=== PATIENT | male | born 1945 | race Caucasian/White ===

== ENCOUNTER → 2017-02-19 | Outpatient (CLI) | payer OTHER ==
[2014-06-10 09:27] VITALS: BP 156/84
[~2017-02-19] MED LIST: BISO1TAB4 PO; LOSA25TA4 PO; METF500T4 PO; SERT50TA PO; SIMV20TA3 PO
[2017-02-19 11:22] LABS: CALCIUM 9.1 mg/dL (8.5-10.1); GFR 74.1; POTASSIUM 3.9 mmol/L (3.5-5.1)
[2017-02-19 11:23] LABS: CHOLESTEROL/HDL RATIO 4.8
== END | disposition home or self-care (01) ==
LOC: LAB 10:49
PROVIDERS: ATTEND Family Medicine
DX: E11.69 Type 2 diabetes mellitus with other specified complication (principal); B19.20 Unspecified viral hepatitis C without hepatic coma
CPT/HCPCS: 36415; 80048; 80061; 86803

== ENCOUNTER → 2018-02-26 | Outpatient (CLI) | payer OTHER ==
[2018-02-26 12:49] LABS: PROSTATE SPECIFIC ANTIGEN 2.73 ng/mL (0.00-4.00)
== END | disposition home or self-care (01) ==
LOC: LAB 11:04
DX: Z12.5 Encounter for screening for malignant neoplasm of prostate (principal); Z80.42 Family history of malignant neoplasm of prostate
CPT/HCPCS: 36415; G0103

== ENCOUNTER 2018-08-05 16:56 | Inpatient (IN) | payer OTHER, MEDICARE ==
[~2018-08-05] VITALS: Ht 179.1 cm; Wt 116.6 kg
[~2018-08-05 16:56] MED LIST changes: -LOSA25TA4 PO; +LOSA25TA54 PO; +METF500T16 PO; -METF500T4 PO
--- NOTE | 2018-08-05 17:23 | PHYS DOC ---
Adult General Chief Complaint Chief Complaint: CHEST PAIN HPI HPI Patient is a 72 year old male with a history of hypertension, chronic seasonal allergies, who presents today complaining of 8 out of 10 right sided chest pain radiating to the right upper extremity that has been going on since yesterday intermittently. Patient describes the pain as stabbing. Patient states certain foods make the pain worse, he states he had Zee's yesterday and that is when the pain began. Patient states he has taken aspirin 3 tablets(81mg) today with no relief. He states the pain seems worse today than yesterday. Patient states he has history of chronic nasal congestion from seasonal allergies. PCP Dr. Umana Review of Systems Review of Systems Constitutional: Denies fever or chills [] Eyes: Denies change in visual acuity, redness, or eye pain [] HENT: Reports chronic nasal congestion, denies sore throat [] Respiratory: Denies cough or shortness of breath [] Cardiovascular: Reporting chest pain GI: Denies abdominal pain, nausea, vomiting, bloody stools or diarrhea [] : Denies dysuria or hematuria [] Musculoskeletal: Denies back pain or joint pain [] Integument: Denies rash or skin lesions [] Neurologic: Denies headache, focal weakness or sensory changes [] All other systems were reviewed and found to be within normal limits, except as documented in this note. Current Medications Current Medications Current Medications Medications (Trade) Dose Ordered Sig/[facility] Start Time Stop Time Status Last Admin Dose Admin Acetaminophen (Tylenol) 1,000 mg 1X ONCE 08/05/18 17:45 08/05/18 17:46 DC Nitroglycerin (Nitrostat) 0.4 mg PRN Q5MIN PRN 08/05/18 17:30 08/05/18 20:59 DC Allergies Allergies Allergies Coded Allergies Type Severity Reaction Last Updated Verified No Known Drug Allergies 06/10/14 No Physical Exam Physical Exam Constitutional: Well developed, well nourished, no acute distress, non-toxic appearance. [] HENT: Normocephalic, atraumatic, bilateral external ears normal, oropharynx moist, no oral exudates, nose normal. [] Eyes: PERRLA, EOMI, conjunctiva normal, no discharge. [] Neck: Normal range of motion, no tenderness, supple, no stridor. [] Cardiovascular:Heart rate regular rhythm, no murmur [] Lungs & Thorax: Bilateral breath sounds clear to auscultation [] Abdomen: Bowel sounds normal, soft, no tenderness, no masses, no pulsatile masses. [] Skin: Warm, dry, no erythema, no rash. [] Back: No tenderness, no CVA tenderness. [] Extremities: No tenderness, no cyanosis, no clubbing, ROM intact, no edema. [] Neurologic: Alert and oriented X 3, normal motor function, normal sensory function, no focal deficits noted. [] Psychologic: Affect normal, judgement normal, mood normal. [] Current Patient Data Vital Signs Vital Signs Date Time Temp Pulse Resp B/P (MAP) Pulse Ox O2 Delivery O2 Flow Rate FiO2 08/05/18 19:30 70 20 144/70 (94) 97 Room Air 08/05/18 16:58 98.4 98.4 Lab Values Laboratory Tests Test 08/05/18 17:50 White Blood Count 7.4 x10^3/uL (4.0-11.0) Red Blood Count 5.13 x10^6/uL (4.30-5.70) Hemoglobin 15.1 g/dL (13.0-17.5) Hematocrit 44.5 % (39.0-53.0) Mean Corpuscular Volume 87 fL (79-100) Mean Corpuscular Hemoglobin 30 pg (25-35) Mean Corpuscular Hemoglobin Concent 34 g/dL (31-37) Red Cell Distribution Width 13.6 % (11.5-14.5) Platelet Count 266 x10^3/uL (140-400) Neutrophils (%) (Auto) 63 % (31-73) Lymphocytes (%) (Auto) 27 % (24-48) Monocytes (%) (Auto) 7 % (0-9) Eosinophils (%) (Auto) 3 % (0-3) Basophils (%) (Auto) 1 % (0-3) Neutrophils # (Auto) 4.7 x10^3uL (1.8-7.7) Lymphocytes # (Auto) 2.0 x10^3/uL (1.0-4.8) Monocytes # (Auto) 0.5 x10^3/uL (0.0-1.1) Eosinophils # (Auto) 0.2 x10^3/uL (0.0-0.7) Basophils # (Auto) 0.0 x10^3/uL (0.0-0.2) Sodium Level 140 mmol/L (136-145) Potassium Level 4.2 mmol/L (3.5-5.1) Chloride Level 102 mmol/L (98-107) Carbon Dioxide Level 29 mmol/L (21-32) Anion Gap 9 (6-14) Blood Urea Nitrogen 12 mg/dL (8-26) Creatinine 1.2 mg/dL (0.7-1.3) Estimated GFR (Cockcroft-Gault) 59.9 BUN/Creatinine Ratio 10 (6-20) Glucose Level 177 mg/dL (70-99) H Calcium Level 9.7 mg/dL (8.5-10.1) Magnesium Level 1.7 mg/dL (1.8-2.4) L Total Bilirubin 0.3 mg/dL (0.2-1.0) Aspartate Amino Transferase (AST) 18 U/L (15-37) Alanine Aminotransferase (ALT) 24 U/L (16-63) Alkaline Phosphatase 49 U/L (46-116) Troponin I Quantitative 0.249 ng/mL (0.000-0.055) YH-Xof-M-Type Natriuretic Peptide 401 pg/mL (0-124) H Total Protein 7.0 g/dL (6.4-8.2) Albumin 3.9 g/dL (3.4-5.0) Albumin/Globulin Ratio 1.3 (1.0-1.7) Thyroid Stimulating Hormone (TSH) 2.152 uIU/mL (0.358-3.74) Influenza Type A Antigen Negative (NEGATIVE) Influenza Type B Antigen Negative (NEGATIVE) Laboratory Tests 08/05/18 17:50 Laboratory Tests 08/05/18 17:50 EKG EKG EKG interpreted by sinus rhythm heart rate 71 no STEMI[] Radiology/Procedures Radiology/Procedures []PROCEDURE: PORTABLE CHEST 1V AP chest. HISTORY: Pain right side showed chest, hypertension, diabetes AP view was taken of the chest. There is no pneumothorax or pleural effusion. Heart is normal in size. There are no acute infiltrates. IMPRESSION: 1. No acute chest disease. Electronically signed by: Colin Arredondo MD (08/05/2018 6:38 PM) [facility] DICTATED and SIGNED BY: COLIN ARREDONDO MD DATE: 08/05/18 1837 Course & Med Decision Making Course & Med Decision Making Pertinent Labs and Imaging studies reviewed. (See chart for details) This is a 72-year-old male patient presenting to the ED today with right sided chest pain intermittently since yesterday. EKG was negative for any acute findings, troponin 0.249. Chest x-ray negative for any acute findings. Pain is well controlled in the ED. Patient is in no distress. He took an aspirin this morning. Consulted with Dr. Allen, he requested we start patient on heparin cardiovascular protocol. Consulted with Dr. denson who accepted patient for admission. Dragon Disclaimer Dragon Disclaimer This electronic medical record was generated, in whole or in part, using a voice recognition dictation system. Departure Departure Impression: Primary Impression: Chest pain Additional Impression: Non-STEMI (non-ST elevated myocardial infarction) Disposition: ADMITTED INPATIENT Condition: STABLE Referrals: MORTEZA UMANA MD (PCP) Problem Qualifiers Primary Impression: Chest pain Chest pain type: unspecified Qualified Codes: R07.9 - Chest pain, unspecified YUMIKO CAMACHO FIELD HAULER Aug 05, 2018 17:23
[2018-08-05] MEDS ORDERED: NITROGLYCERIN SUBLINGUAL 0.4 MG BOTTLE OF 25. SL PRN ×2 (17:30→21:00)
--- NOTE | 2018-08-05 17:33 | EKG ---
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
[2018-08-05] MEDS ORDERED: ACETAMINOPHEN 500 MG TABLET PO ONE (17:45)
[2018-08-05 18:04] LABS: BASO % 1 % (0-3); EOS # 0.2 x10^3/uL (0.0-0.7); EOS % 3 % (0-3); HEMATOCRIT 44.5 % (39.0-53.0); HEMOGLOBIN 15.1 g/dL (13.0-17.5); LYMPH % 27 % (24-48); MEAN CORPUSCULAR HEMOGLOBIN 30 pg (25-35); MEAN CORPUSCULAR HGB CONC 34 g/dL (31-37); MEAN CORPUSCULAR VOLUME 87 fL (79-100); MONO # 0.5 x10^3/uL (0.0-1.1); MONO % 7 % (0-9); NEUT # 4.7 x10^3uL (1.8-7.7); NEUT % 63 % (31-73); PLATELET COUNT 266 x10^3/uL (140-400); RED BLOOD COUNT 5.13 x10^6/uL (4.30-5.70); RED CELL DISTRIBUTION WIDTH 13.6 % (11.5-14.5); WHITE BLOOD COUNT 7.4 x10^3/uL (4.0-11.0)
[2018-08-05 18:11] LABS: CALCIUM 9.7 mg/dL (8.5-10.1); CREATININE 1.2 mg/dL (0.7-1.3); GFR 59.9; POTASSIUM 4.2 mmol/L (3.5-5.1)
[2018-08-05 18:18] LABS: ALBUMIN 3.9 g/dL (3.4-5.0); ALBUMIN/GLOBULIN RATIO 1.3 (1.0-1.7); MAGNESIUM 1.7 mg/dL (1.8-2.4); TOTAL BILIRUBIN 0.3 mg/dL (0.2-1.0)
[2018-08-05 18:21] LABS: INFLUENZA A PATIENT NEGATIVE (NEGATIVE); INFLUENZA B PATIENT NEGATIVE (NEGATIVE)
--- NOTE | 2018-08-05 18:42 | RAD ---
AP chest. HISTORY: Pain right side showed chest, hypertension, diabetes AP view was taken of the chest. There is no pneumothorax or pleural effusion. Heart is normal in size. There are no acute infiltrates. IMPRESSION: 1. No acute chest disease. Electronically signed by: Sunday Arredondo MD (08/05/2018 6:38 PM) [facility]
[2018-08-05] MEDS ORDERED: HEPARIN for IV BOLUS 10,000 UNIT/10 ML VIAL. IV PRN (20:00)
[2018-08-05] MEDS ORDERED: HEPARIN 25,000UTS/500ML PREMIX 500 ML IV PRN (20:00)
[2018-08-05 20:55] VITALS: BP 139/77
[2018-08-05] MEDS ORDERED: ACETAMINOPHEN 325 MG TABLET. PO PRN (21:00)
[2018-08-05] MEDS ORDERED: ONDANSETRON PF 4 MG/2 ML VIAL. IV PRN (21:00)
[2018-08-05] MEDS ORDERED: MORPHINE SULFATE 4 MG/ML VIAL. IV PRN (21:00)
[2018-08-05] MEDS ORDERED: PSEU120T9 PO (21:39)
[2018-08-05] MEDS ORDERED: SIMV10TA3 PO (21:39)
[2018-08-05] MEDS ORDERED: METF500T16 PO (21:39)
[2018-08-05] MEDS ORDERED: BISO1TAB7 PO (21:39)
[2018-08-05] MEDS ORDERED: IBUP-1007 PO (21:39)
[2018-08-05] MEDS ORDERED: DOXA4TAB3 PO (21:39)
[2018-08-05] MEDS ORDERED: LOSA1TAB2 PO (21:39)
[2018-08-05] MEDS ORDERED: SERT100T PO (21:39)
[2018-08-05] MEDS ORDERED: METF10007 PO ×2 (21:39→22:06)
[2018-08-05] MEDS ORDERED: RANI150C PO (21:39)
[2018-08-05] MEDS ORDERED: CETI10TA22 PO (21:39)
[2018-08-05] MEDS ORDERED: SIMVASTATIN 10 MG TABLET PO SCH (23:00)
[2018-08-05 23:10] VITALS: BP 136/81
[2018-08-05] MEDS: DOXAZOSIN MESYLATE 4 MG TABLET. PO SCH (23:12)
--- NOTE | 2018-08-06 00:42 | EKG ---
[facility] [address] [place] [address] Test Date: 2018-08-06 Test Time: 00:38:09 Pat Name: JELANI HOPKINS Department: Room: 256 1 Gender: M Alligator Hunter: LYDIA : 1945 Requested By: BEATRICE LOVELL Order Number: [id number] Reading MD: Isaiah Campuzano Measurements Intervals [place] Rate: 64 P: -26 NE: 144 QRS: 154 QRSD: 104 T: -22 QT: 410 QTc: 427 Interpretive Statements SINUS RHYTHM ABNORMAL RIGHT AXIS DEVIATION QRS(T) CONTOUR ABNORMALITY CONSIDER ANTEROSEPTAL MYOCARDIAL DAMAGE CONSISTENT WITH HIGH LATERAL INFARCT PROBABLY OLD T ABNORMALITY IN INFERIOR LEADS ABNORMAL ECG Electronically Signed On 08-13-2018 9:53:50 SATELLITE TV INSTALLER by Isaiah Campuzano
[2018-08-06 03:18] LABS: BASO % 1 % (0-3); EOS # 0.2 x10^3/uL (0.0-0.7); EOS % 3 % (0-3); HEMATOCRIT 42.7 % (39.0-53.0); HEMOGLOBIN 14.8 g/dL (13.0-17.5); LYMPH # 2.6 x10^3/uL (1.0-4.8); LYMPH % 44 % (24-48); MEAN CORPUSCULAR HEMOGLOBIN 30 pg (25-35); MEAN CORPUSCULAR HGB CONC 35 g/dL (31-37); MEAN CORPUSCULAR VOLUME 87 fL (79-100); MONO # 0.5 x10^3/uL (0.0-1.1); MONO % 8 % (0-9); NEUT # 2.7 x10^3uL (1.8-7.7); NEUT % 45 % (31-73); PLATELET COUNT 258 x10^3/uL (140-400); RED BLOOD COUNT 4.94 x10^6/uL (4.30-5.70); RED CELL DISTRIBUTION WIDTH 13.4 % (11.5-14.5); WHITE BLOOD COUNT 6.1 x10^3/uL (4.0-11.0)
[2018-08-06 03:25] VITALS: BP 120/69
[2018-08-06 03:50] LABS: ALBUMIN 3.5 g/dL (3.4-5.0); ALBUMIN/GLOBULIN RATIO 1.2 (1.0-1.7); CALCIUM 9.3 mg/dL (8.5-10.1); CREATININE 1.1 mg/dL (0.7-1.3); GFR 66.2; POTASSIUM 3.3 mmol/L (3.5-5.1); TOTAL BILIRUBIN 0.6 mg/dL (0.2-1.0); TOTAL PROTEIN 6.5 g/dL (6.4-8.2)
[2018-08-06 07:00] VITALS: BP 135/76
[2018-08-06] MEDS ORDERED: metFORMIN 500 MG TABLET PO SCH ×2 (08:00→17:00)
[2018-08-06 08:21] LABS: CHOLESTEROL/HDL RATIO 4.6
--- NOTE | 2018-08-06 08:34 | PDOC1 ---
H & P. HPI: Mr. Caruso is a 72 yo male with PMH of previously well controlled type 2 diabetes , hypertension, hyperlipidemia, GERD, BPH, erectile dysfunction, sleep apnea, obesity, who presented to the emergency room yesterday for malaise and right- sided chest pain that radiated to the shoulder. He denies any previous history of cardiac issues, though notes he does have a family history of an uncle who had coronary artery disease diagnosed prior to age 55, who at age 56 due to massive heart attack. Initial EKG was negative for any acute findings but troponin was 0.249. Chest x-ray unremarkable. Repeat EKG showed subtle changes without ST elevation and troponin was 1.033. She is currently pain-free and has no other concerns. ROS: Constitutional: Denies fever, fatigue, chills HEENT: Denies sore throat, vision changes Cardio: Denies chest pain, dyspnea with exertion, syncope, palpitations, edema Pulmonary: Denies shortness of breath, cough, wheezing GI: Denies nausea, vomiting, diarrhea, constipation : Denies dysuria, frequency, urgency, incontinence Skin: Denies new lesions Neuro: Denies weakness, paresthesias PMH: As above FAMILY HX: Father from prostate cancer, also had hypertension and diabetes. Mother from lung cancer and colon cancer. Uncle had history of early diagnosis of heart disease and at age 56 from massive PA. SOCIAL HX: Never smoker, denies significant alcohol use, denies illicit drug use. SURGICAL HX: Unremarkable MEDS: Reviewed and reconciled ALLERGIES: Reviewed PE: Alert, oriented, no acute distress EOMI, sclera non-icteric Neck supple RRR, no murmur CTAB, no wheezes, crackles or rhonchi Soft, NT, ND, normal bowel sounds No edema, cyanosis. Normal capillary refill. Calm, cooperative, mood/affect within normal limits ASSESSMENT & PLAN: NSTEMI, on heparin Previously well controlled type 2 diabetes Hypertension Hyperlipidemia GERD BPH Erectile dysfunction Sleep apnea Obesity Cardiology following and plan for cardiac cath and echo today. Holding metformin due to plan for cardiac cath Get A1C BEATRICE LOVELL MD Aug 06, 2018 08:34
--- NOTE | 2018-08-06 08:59 | PDOC2 ---
ERNESTINE WORRELL SOFT METALS HAND ENGRAVER 08/06/18 0859: CARDIAC CONSULT DATE OF CONSULT Date of Consult DATE: 08/06/18 TIME: 08:46 REASON FOR CONSULT Reason for Consult: Chest pain REFERRING PHYSICIAN Referring Physician: Ricardo SOURCE Source: Chart review, Patient HISTORY OF PRESENT ILLNESS HISTORY OF PRESENT ILLNESS This is a pleasant 72 yo male admitted for complains of chest pain. Reports that last Sunday he was not feeling well, feeling malaise. No fever or chills. Reports that Sunday he started having right chest sharp pain and feeling that his bilateral neck lymph nodes were feeling swollen. No jaw pain per se and no arm pain. No diaphoresis or significant nausea. He was helping remodel the kitchen when his sharp right chest pain started happening again. He normally does exercise in the gym at least 3x weekly with good tolerance but has not for at least a week since their kitchen is being remodelled. He has DM, HTN and HLP. No prior falls or injury. No hx of CAD, VTE, arrhythmias. Denies any palpitations. No prior cardiac workup. PAST MEDICAL HISTORY Cardiovascular: HTN, Hyperlipidemia Pulmonary: No pertinent hx CENTRAL NERVOUS SYSTEM: Other (no pertinent history) GI: No pertinent hx Heme/Onc: No pertinent hx Hepatobiliary: No pertinent hx Psych: Anxiety Musculoskeletal: Osteoarthritis Rheumatologic: No pertinent hx Infectious disease: No pertinent hx ENT: No pertinent hx Renal/: Benign prostatic enlarg. Endocrine: Diabetes (2) Dermatology: No pertinent hx PAST SURGICAL HISTORY Past Surgical History: Other (right hand ganglio cyst removal) FAMILY HISTORY Family History noncontributorry to CV with immediate family members but significant to mothers side SOCIAL HISTORY Smoke: No ALCOHOL: occassional Drugs: None Lives: with Family CURRENT MEDICATIONS CURRENT MEDICATIONS Current Medications Medications (Trade) Dose Ordered Sig/Devaughn Route PRN Reason Start Time Stop Time Status Last Admin Dose Admin Heparin Sodium/ Dextrose 500 ml @ 20 mls/hr CONT PRN IV SEE I/O RECORD 08/05/18 20:00 08/05/18 20:16 Heparin Sodium (Porcine) (Heparin Sodium) 2,850 unit PRN Q6HRS PRN IV FOR UFH LEVEL LESS THAN 0.2 08/05/18 20:00 08/05/18 20:14 Doxazosin Mesylate (Cardura) 4 mg HS PO 08/05/18 23:00 08/05/18 23:12 Simvastatin (Zocor) 10 mg HS PO 08/05/18 23:00 08/05/18 23:12 ALLERGIES ALLERGIES: Coded Allergies: No Known Drug Allergies (Unverified , 06/10/14) ROS Review of System 14 point ROS evaluated with pertinent positives noted per HPI PHYSICAL EXAM General: Alert, Oriented X3, Cooperative, No acute distress HEENT: Atraumatic, Mucous membr. moist/pink Lungs: Clear to auscultation, Normal air movement Heart: Regular rate (SR), Normal S1, Normal S2, No murmurs Abdomen: Soft, No tenderness, Other (obese ) Extremities: No cyanosis, No edema Skin: No breakdown, No significant lesion Neuro: Normal speech, Sensation intact Psych/Mental Status: Mental status NL, Mood NL MUSCULOSKELETAL: Osteoarthritic changes both hands VITALS VITALS Vital Signs Date Time Temp Pulse Resp B/P (MAP) Pulse Ox O2 Delivery O2 Flow Rate FiO2 08/06/18 07:54 Nasal Cannula 2.0 08/06/18 07:00 97.8 71 20 135/76 (95) 95 97.8 LABS Lab: Laboratory Tests Test 08/05/18 17:50 08/06/18 02:45 08/06/18 07:31 White Blood Count 7.4 x10^3/uL (4.0-11.0) 6.1 x10^3/uL (4.0-11.0) Red Blood Count 5.13 x10^6/uL (4.30-5.70) 4.94 x10^6/uL (4.30-5.70) Hemoglobin 15.1 g/dL (13.0-17.5) 14.8 g/dL (13.0-17.5) Hematocrit 44.5 % (39.0-53.0) 42.7 % (39.0-53.0) Mean Corpuscular Volume 87 fL (79-100) 87 fL (79-100) Mean Corpuscular Hemoglobin 30 pg (25-35) 30 pg (25-35) Mean Corpuscular Hemoglobin Concent 34 g/dL (31-37) 35 g/dL (31-37) Red Cell Distribution Width 13.6 % (11.5-14.5) 13.4 % (11.5-14.5) Platelet Count 266 x10^3/uL (140-400) 258 x10^3/uL (140-400) Neutrophils (%) (Auto) 63 % (31-73) 45 % (31-73) Lymphocytes (%) (Auto) 27 % (24-48) 44 % (24-48) Monocytes (%) (Auto) 7 % (0-9) 8 % (0-9) Eosinophils (%) (Auto) 3 % (0-3) 3 % (0-3) Basophils (%) (Auto) 1 % (0-3) 1 % (0-3) Neutrophils # (Auto) 4.7 x10^3uL (1.8-7.7) 2.7 x10^3uL (1.8-7.7) Lymphocytes # (Auto) 2.0 x10^3/uL (1.0-4.8) 2.6 x10^3/uL (1.0-4.8) Monocytes # (Auto) 0.5 x10^3/uL (0.0-1.1) 0.5 x10^3/uL (0.0-1.1) Eosinophils # (Auto) 0.2 x10^3/uL (0.0-0.7) 0.2 x10^3/uL (0.0-0.7) Basophils # (Auto) 0.0 x10^3/uL (0.0-0.2) 0.0 x10^3/uL (0.0-0.2) Sodium Level 140 mmol/L (136-145) 137 mmol/L (136-145) Potassium Level 4.2 mmol/L (3.5-5.1) 3.3 mmol/L (3.5-5.1) Chloride Level 102 mmol/L (98-107) 101 mmol/L (98-107) Carbon Dioxide Level 29 mmol/L (21-32) 28 mmol/L (21-32) Anion Gap 9 (6-14) 8 (6-14) Blood Urea Nitrogen 12 mg/dL (8-26) 12 mg/dL (8-26) Creatinine 1.2 mg/dL (0.7-1.3) 1.1 mg/dL (0.7-1.3) Estimated GFR (Cockcroft-Gault) 59.9 66.2 BUN/Creatinine Ratio 10 (6-20) 11 (6-20) Glucose Level 177 mg/dL (70-99) 171 mg/dL (70-99) Calcium Level 9.7 mg/dL (8.5-10.1) 9.3 mg/dL (8.5-10.1) Magnesium Level 1.7 mg/dL (1.8-2.4) Total Bilirubin 0.3 mg/dL (0.2-1.0) 0.6 mg/dL (0.2-1.0) Aspartate Amino Transf (AST/SGOT) 18 U/L (15-37) 20 U/L (15-37) Alanine Aminotransferase (ALT/SGPT) 24 U/L (16-63) 21 U/L (16-63) Alkaline Phosphatase 49 U/L (46-116) 46 U/L (46-116) Troponin I Quantitative 0.249 ng/mL (0.000-0.055) 1.033 ng/mL (0.000-0.055) EP-Vpa-B-Type Natriuretic Peptide 401 pg/mL (0-124) Total Protein 7.0 g/dL (6.4-8.2) 6.5 g/dL (6.4-8.2) Albumin 3.9 g/dL (3.4-5.0) 3.5 g/dL (3.4-5.0) Albumin/Globulin Ratio 1.3 (1.0-1.7) 1.2 (1.0-1.7) Thyroid Stimulating Hormone (TSH) 2.152 uIU/mL (0.358-3.74) Influenza Type A Antigen Negative (NEGATIVE) Influenza Type B Antigen Negative (NEGATIVE) Heparin Anti-Xa Act, Unfractionated 0.10 IU/mL (0.30-0.70) Triglycerides Level 202 mg/dL (0-150) Cholesterol Level 166 mg/dL (0-200) LDL Cholesterol, Calculated 90 mg/dL (0-100) VLDL Cholesterol, Calculated 40 mg/dL (0-40) Non-HDL Cholesterol Calculated 130 mg/dL (0-129) HDL Cholesterol 36 mg/dL (40-60) Cholesterol/HDL Ratio 4.6 Glucose (Fingerstick) 195 mg/dL (70-99) ASSESSMENT/PLAN ASSESSMENT/PLAN 1. NSTEMI 2. HTN: controlled 3. HLP 4. DM2 5. Obesity Recommendations 1. TTE, lipids, intensify statin 2. LHC, risks and benefits discussed and agreeable to proceed. Heparin drip. ASA 3. COntinue with secondary prevention. Hold metformin for 48 hours. LINH CHING MD 08/06/18 1813: CARDIAC CONSULT ASSESSMENT/PLAN ASSESSMENT/PLAN Patient seen and examined. Agree with BUSINESS PLANNING ANALYST's assessment and plan. Plan for cardiac catheterization to further evaluate patient's non-STEMI. Continue heparin infusion per protocol. Thank you for your consultation. ERNESTINE WORRELL APRN Aug 06, 2018 08:59 LINH CHING MD Aug 06, 2018 18:13
[2018-08-06] MEDS ORDERED: LOSARTAN POTASSIUM 50 MG TABLET. PO SCH (09:00)
[2018-08-06] MEDS: hydroCHLOROthiazide 12.5 MG CAPSULE PO SCH (09:17)
[2018-08-06] MEDS: SERTRALINE 50 MG TABLET. PO SCH (09:17)
[2018-08-06] MEDS: FAMOTIDINE 20 MG TABLET. PO SCH ×2 (09:17→22:49)
[2018-08-06] MEDS: CETIRIZINE HCL 10 MG TABLET. PO SCH (09:17)
[2018-08-06] MEDS: ASPIRIN ENTERIC COATED 81 MG TABLET.DR. PO SCH (09:23)
--- NOTE | 2018-08-06 10:41 | CARD ---
MR#: [id number] Date of Study: 08/06/2018 Ordering Physician: ERNESTINE WORRELL, Referring Physician: BEATRICE LOVELL, Tech: Christianne Colmenares [facility] APPROVED REPORT EXAM: Two-dimensional and M-mode echocardiogram with Doppler and color Doppler. Other Information Quality : Technically LimitedHR: 70bpm Rhythm : NSRTechnically limited study due to body habitus. INDICATION Non STEMI 2D DIMENSIONS RVDd3.1 (2.9-3.5cm)Left Atrium(2D)3.7 (1.6-4.0cm) IVSd1.4 (0.7-1.1cm)Aortic Root(2D)3.9 (2.0-3.7cm) LVDd5.3 (3.9-5.9cm)LVOT Diameter2.2 (1.8-2.4cm) PWd1.0 (0.7-1.1cm)LVDs3.4 (2.5-4.0cm) FS (%) 35.6 %SV89.0 ml LVEF(%)64.6 (>50%) M-Mode DIMENSIONS Left Atrium(MM)4.24 (2.5-4.0cm)Aortic Root4.13 (2.2-3.7cm) Aortic Valve AoV Peak Avinash.105.7cm/sAoV VTI21.4cm AO Peak GR.4.5mmHgLVOT Peak Avinash.79.6cm/s AO Mean GR.3mmHgAVA (VMAX)2.99cm2 CHEO (VTI)2.39om5OM P 1/2 Mgja832tc Mitral Valve MV E Esmfcvqu84.4cm/sMV DECEL CPLP010km MV A Zklkmuoh19.8cm/sE/A Ratio1.0 MV A Kcgdnphe219oe Pulmonary Valve PV Peak Xgwaldel55.9cm/s LEFT VENTRICLE The left ventricle is normal size. Proximal septal thickening is noted. The left ventricular systolic function is normal. The Ejection Fraction is 60-65%. There is normal LV segmental wall motion. Trans mitral Doppler flow pattern is Grade II-pseudonormal filling dynamics. RIGHT VENTRICLE The right ventricle is normal size. There is normal right ventricular wall thickness. The right ventr icular systolic function is normal. ATRIA The left atrium is mildly dilated. The right atrium is mildly dilated. The interatrial septum is inta ct with no evidence for an atrial septal defect or patent foramen ovale as noted on 2-D or Doppler im aging. AORTIC VALVE The aortic valve is normal in structure and function. The aortic valve is trileaflet. Doppler and Col or Flow revealed no significant aortic regurgitation. There is no significant aortic valvular stenosi s. MITRAL VALVE The mitral valve is normal in structure and function. There is no evidence of mitral valve prolapse. There is no mitral valve stenosis. Doppler and Color-flow revealed trace mitral regurgitation. TRICUSPID VALVE The tricuspid valve is normal in structure and function. Doppler and Color Flow revealed trace tricus pid regurgitation. There is no tricuspid valve prolapse or vegetation. There is no tricuspid valve st enosis. PULMONIC VALVE Pulmonic valve not well visualized. GREAT VESSELS The aortic root is mildly enlarged at 3.9cm. The ascending aorta is Mildly dilated at 3.4cm. The IVC is normal in size and collapses >50% with inspiration. PERICARDIAL EFFUSION There is no evidence of significant pericardial effusion. Critical Notification Critical Value: No <Conclusion> The left ventricular systolic function is normal. The Ejection Fraction is 60-65%. There is normal LV segmental wall motion. Trace mitral regurgitation. Trace tricuspid regurgitation. There is no evidence of significant pericardial effusion. Signed by : Isaiah Campuzano, Electronically Approved : 08/06/2018 10:40:47
[2018-08-06 11:00] VITALS: BP 141/76
[2018-08-06] MEDS ORDERED: POTASSIUM CHLORIDE 20 MEQ TABLET.ER. PO ONE (14:00)
[2018-08-06] MEDS ORDERED: fentaNYL PF VIAL 100 MCG/2 ML VIAL ONE (14:30)
[2018-08-06] MEDS ORDERED: VERAPAMIL 5 MG/2 ML VIAL. ONE (14:31)
[2018-08-06] MEDS ORDERED: MIDAZOLAM HCL/PF 2 MG/2 ML VIAL. ONE (14:31)
[2018-08-06] MEDS ORDERED: LIDOCAINE 1% PF 2 ML VIAL. ONE (14:31)
[2018-08-06] MEDS ORDERED: NITROGLYCERIN 200 MCG/2 ML SYRINGE FOR CATH/VASC LAB. ONE (14:31)
[2018-08-06] MEDS ORDERED: HEPARIN for IV BOLUS 10,000 UNIT/10 ML VIAL. ONE (14:31)
[2018-08-06] MEDS ORDERED: IODIXANOL 320 MG/ML 100 ML VIAL. ONE (14:57)
[2018-08-06] MEDS ORDERED: BIVALIRUDIN 250 MG VIAL. IV ONE ×2 (15:01→15:30)
[2018-08-06] MEDS ORDERED: LIDOCAINE 1% PF 2 ML VIAL. INJ ONE (15:30)
[2018-08-06] MEDS ORDERED: HEPARIN for IV BOLUS 10,000 UNIT/10 ML VIAL. IART ONE (15:30)
[2018-08-06] MEDS ORDERED: IODIXANOL 320 MG/ML 100 ML VIAL. IART ONE (15:30)
[2018-08-06] MEDS ORDERED: NITROGLYCERIN 200 MCG/2 ML SYRINGE FOR CATH/VASC LAB. IART ONE (15:30)
[2018-08-06] MEDS ORDERED: VERAPAMIL 5 MG/2 ML VIAL. IART ONE (15:30)
[2018-08-06] MEDS ORDERED: MIDAZOLAM HCL/PF 2 MG/2 ML VIAL. IV ONE (15:30)
[2018-08-06] MEDS ORDERED: fentaNYL PF VIAL 100 MCG/2 ML VIAL IV ONE (15:30)
--- NOTE | 2018-08-06 15:30 | PDOC ---
MODERATE SEDATION ASSESSMENT RISKS/ALTERNATIVES Risks/Alternatives Risks and alternatives of this type of sedation and procedure discussed with: RISK/ALTERNATIVES: Patient H & P ON CHART H & P H & P on chart and reviewed for co-morbid conditions and appropriate labs. H&P ON CHART: Yes STATUS PREG STATUS ASSESSED: N/A MEDS/ALLERGIES REVIEWED Meds/Allergies Reviewed Medications and Allergies including time and route of recently administered narcotics and sedatives. MEDS/ALLERGIES REVIEWED: Yes ASA RATING ASA RATING: III AIRWAY ASSESSMENT Airway Assessment Airway patency, oral function limitations, presence of caps, crowns, dentures, partials, and ability to extend neck assessed. AIRWAY ASSESSMENT: Yes MALLAMPATI SCORE MALLAMPATI SCORE: II PRE-SEDATION ASSESSMENT PRE-SEDATION ASSESSMENT: Yes LINH CHING MD Aug 06, 2018 15:30
[2018-08-06 15:36] VITALS: BP 136/81
--- NOTE | 2018-08-06 15:44 | CARD ---
MR#: [id number] Date of Study: 08/06/2018 Ordering Physician: ERNESTINE WORRELL, Referring Physician: BEATRICE LOVELL, Tech: RT Med (R) APPROVED REPORT Technologist: Malathi Chow RT (R) Nurse: Gloria Roberts R.N. Procedure(s) performed: 1. Left heart catheterization, selective coronary angiography and left ventr iculography via right transradial approach 2. Instant wave free ratio (IFR) to left anterior descending and left circumflex arteries Moderate sedation: 44 minutes INDICATION The indication(s) include : non-STEMI . PROCEDURE NARRATIVE After explaining the risks, benefits and alternative options, informed consent was obtained from stephanie ent. Patient was brought to the cardiac Bowl Attendant and right wrist was prepped and draped in the usual fashion after confirming a positive modified Yehuda's test. Arterial access was obtained in the righ t radial artery and a 6 Lao sheath was inserted. 6 Lao Alonso catheter was used to perform radha ective angiography of the left and right coronary arteries. 6 Lao pigtail catheter was used to pe rform left ventriculography. Since patient was found to have angiographically borderline lesions invo lving the obtuse marginal branch of left circumflex artery and left anterior descending artery, a dec ision was made to perform physiologic assessment using Instant wave free ratio (IFR) measurement. The obtuse marginal branch stenosis was first crossed with a Grasston verrata PressureWire and IFR measur ement was made that came back borderline significant at 0.90. The same wire was used to cross the lef t anterior descending artery stenosis and IFR measurement was made that came back significant at 0.77 . Patient tolerated the procedure well. Hemostasis was achieved using TR band. There were no immedi ate complications. The following findings were noted. FINDINGS 1. Hemodynamics: Left ventricular end-diastolic pressure of 17 mmHg. No pullback gradient across th e aortic valve. 2. Left ventriculography: Normal left ventricle systolic function with ejection fraction estimated at 55%. The aortic root appeared to be dilated. No significant mitral regurgitation seen. 3. Coronary angiography: a. The left main coronary artery arose from the left sinus of Valsalva, gave rise to the left anteri or descending and left circumflex arteries and showed 20% distal segment stenosis. b. The left anterior descending artery showed long 70% stenosis involving the midsegment. This was f ound to be physiologically significant based on IFR measurement of 0.77. The diagonal branch showed a neurysmal dilatation in the very proximal segment followed by 70% stenosis in the proximal to midsegm ent. c. The left circumflex artery showed 70% stenosis in the large obtuse marginal branch. d. The right coronary artery was a dominant vessel arising from the right sinus of Valsalva that obi wed two tandem 90% stenoses involving the distal segment. Conclusion 1. Severe three-vessel coronary artery disease with the lesions in left circumflex and left anterior descending arteries confirm to be significant by IFR measurement. 2. Normal left ventricle systolic function with ejection fraction estimated at 55%. Recommendations CT surgery consultation for possible coronary artery bypass surgery. Signed by : Isaiah Campuzano, Electronically Approved : 08/06/2018 15:43:32
[2018-08-06 19:20] VITALS: BP 136/64
--- NOTE | 2018-08-06 21:53 | PDOC2 ---
CONSULT Date of Consult Date of Consult DATE: 08/06/18 TIME: 21:40 Reason for Consult Reason for Consult: NSTEMI Referring Physician Referring Physician: Dr Campuzano Identification/Chief Complaint Chief Complaint Chest pain Source Source: Chart review, Patient History of Present Illness Reason for Visit: The patient is a 72 year old male with a hx of type II DM, HTN, HLP, SREE, and family hx of IHD, who presented with chest pain radiating to his right shoulder and fatigue. This was his first ever episode. Denies SOB. Troponin peaked at 2. No acute EKG changes. LHC demonstrated a proximal 70% LAD stenosis, 70% proximal OM lesion, an ostial diagonal aneurysm and a 95% distal RCA stenosis. LV function is preserved. He is currently chest pain free. I was consulted for possible surgical coronary re-vscularization. Past Medical History Cardiovascular: HTN, Hyperlipidemia Pulmonary: No pertinent hx CENTRAL NERVOUS SYSTEM: Other (no pertinent history) GI: No pertinent hx Heme/Onc: No pertinent hx Hepatobiliary: No pertinent hx Psych: Anxiety Musculoskeletal: Osteoarthritis Rheumatologic: No pertinent hx Infectious disease: No pertinent hx ENT: No pertinent hx Renal/: Benign prostatic enlarg. Endocrine: Diabetes (2) Dermatology: No pertinent hx Past Surgical History Past Surgical History: Other (right hand ganglio cyst removal) Family History Family History: Cancer, Coronary Artery Disease Social History No ALCOHOL: occassional Drugs: None Lives: with Family Current Problem List Problem List Problems Medical Problems: (1) Chest pain Status: Acute (2) Non-STEMI (non-ST elevated myocardial infarction) Status: Acute Current Medications Current Medications Current Medications Nitroglycerin (Nitrostat) 0.4 mg PRN Q5MIN PRN SL CP RATING > 1/10; Start 06/13 at 17:30; Stop 08/05/18 at 20:59; Status DC Acetaminophen (Tylenol) 1,000 mg 1X ONCE PO ; Start 08/05/18 at 17:45; Stop 08/05/18 at 17:46; Status DC Heparin Sodium/ Dextrose 500 ml @ 20 mls/hr CONT PRN IV SEE I/O RECORD Last administered on 08/05/18at 20:16; Start 08/05/18 at 20:00 Heparin Sodium (Porcine) (Heparin Sodium) 2,850 unit PRN Q6HRS PRN IV FOR UFH LEVEL LESS THAN 0.2 Last administered on 08/05/18at 20:14; Start 08/05/18 at 20 :00 Ondansetron HCl (Zofran) 4 mg PRN Q8HRS PRN IV NAUSEA/VOMITING 1ST CHOICE; Start 08/05/18 at 21:00; Stop 08/06/18 at 20:59; Status DC Morphine Sulfate (Morphine Sulfate) 4 mg PRN Q2HR PRN IV SEVERE PAIN; Start at 21:00; Stop 08/06/18 at 20:59; Status DC Acetaminophen (Tylenol) 650 mg PRN Q4HRS PRN PO FEVER; Start 08/05/18 at 21:00 ; Stop 08/06/18 at 20:59; Status DC Nitroglycerin (Nitrostat) 0.4 mg PRN Q5MIN PRN SL CHEST PAIN; Start 08/05/18 at 21:00; Stop 08/06/18 at 20:59; Status DC Cetirizine HCl (ZyrTEC) 10 mg DAILY PO Last administered on 08/06/18at 09:17; Start 08/06/18 at 09:00 Doxazosin Mesylate (Cardura) 4 mg HS PO Last administered on 08/05/18at 23:12; Start 08/05/18 at 23:00 Simvastatin (Zocor) 10 mg HS PO Last administered on 08/05/18at 23:12; Start 08/05/18 at 23:00; Stop 08/06/18 at 08:57; Status DC Losartan Potassium (Cozaar) 50 mg DAILY PO Last administered on 08/06/18at 09: 17; Start 08/06/18 at 09:00; Stop 08/06/18 at 17:17; Status DC Metformin HCl (Glucophage) 1,000 mg DAILYWBKFT PO ; Start 08/06/18 at 08:00; Stop 08/06/18 at 08:56; Status DC Metformin HCl (Glucophage) 500 mg DAILYWSUP PO ; Start 08/06/18 at 17:00; Stop 08/06/18 at 17:00; Status DC Famotidine (Pepcid) 20 mg BID PO Last administered on 08/06/18at 09:17; Start 08/06/18 at 09:00 Sertraline HCl (Zoloft) 100 mg DAILY PO Last administered on 08/06/18at 09:17; Start 08/06/18 at 09:00 Hydrochlorothiazide (Microzide) 12.5 mg DAILY PO Last administered on at 09:17; Start 08/06/18 at 09:00 Atorvastatin Calcium (Lipitor) 40 mg QHS PO ; Start 08/06/18 at 21:00 Aspirin (Ecotrin) 81 mg DAILYWBKFT PO Last administered on 08/06/18at 09:23; Start 08/06/18 at 09:00 Potassium Chloride (Klor-Con) 40 meq 1X ONCE PO Last administered on at 15:58; Start 08/06/18 at 14:00; Stop 08/06/18 at 14:01; Status DC Fentanyl Citrate (Fentanyl 2ml Vial) 100 mcg STK-MED ONCE .ROUTE ; Start at 14:30; Stop 08/06/18 at 14:32; Status DC Midazolam HCl (Versed) 2 mg STK-MED ONCE .ROUTE ; Start 08/06/18 at 14:31; Stop 08/06/18 at 14:32; Status DC Verapamil HCl (Verapamil) 5 mg STK-MED ONCE .ROUTE ; Start 08/06/18 at 14:31; Stop 08/06/18 at 14:32; Status DC Heparin Sodium (Porcine) (Heparin Sodium) 10,000 unit STK-MED ONCE .ROUTE ; Start 08/06/18 at 14:31; Stop 08/06/18 at 14:32; Status DC Nitroglycerin (Nitroglycerin) 200 mcg STK-MED ONCE .ROUTE ; Start 08/06/18 at 14:31; Stop 08/06/18 at 14:32; Status DC Lidocaine HCl (Xylocaine-Mpf 1% 2ml Vial) 2 ml STK-MED ONCE .ROUTE ; Start 07/14 at 14:31; Stop 08/06/18 at 14:32; Status DC Heparin Sodium/ Sodium Chloride 500 ml @ As Directed STK-MED ONCE .ROUTE ; Start 08/06/18 at 14:31; Stop 08/06/18 at 14:32; Status DC Iodixanol (Visipaque 320) 100 ml STK-MED ONCE .ROUTE ; Start 08/06/18 at 14:57 ; Stop 08/06/18 at 14:58; Status DC Bivalirudin (Angiomax) 250 mg STK-MED ONCE IV ; Start 08/06/18 at 15:01; Stop 08/06/18 at 15:02; Status DC Nitroglycerin (Nitroglycerin) 200 mcg 1X ONCE IART Last administered on at 15:30; Start 08/06/18 at 15:30; Stop 08/06/18 at 15:39; Status DC Verapamil HCl (Verapamil) 2.5 mg 1X ONCE IART Last administered on 08/06/18at 15:35; Start 08/06/18 at 15:30; Stop 08/06/18 at 15:39; Status DC Heparin Sodium (Porcine) (Heparin Sodium) 2,500 unit 1X ONCE IART Last administered on 08/06/18at 15:36; Start 08/06/18 at 15:30; Stop 08/06/18 at 15 :39; Status DC Heparin Sodium/ Sodium Chloride (HEPARIN for ARTERIAL LINE FLUSH) 1,000 unit 1X ONCE IART Last administered on 08/06/18at 15:36; Start 08/06/18 at 15:30; Stop 08/06/18 at 15:39; Status DC Midazolam HCl (Versed) 2 mg 1X ONCE IV Last administered on 08/06/18at 15:35; Start 08/06/18 at 15:30; Stop 08/06/18 at 15:39; Status DC Fentanyl Citrate (Fentanyl 2ml Vial) 50 mcg 1X ONCE IV Last administered on at 15:34; Start 08/06/18 at 15:30; Stop 08/06/18 at 15:39; Status DC Iodixanol (Visipaque 320) 172 ml 1X ONCE IART Last administered on 08/06/18at 15:33; Start 08/06/18 at 15:30; Stop 08/06/18 at 15:39; Status DC Bivalirudin (Angiomax) 250 mg 1X ONCE IV Last administered on 08/06/18at 15:33 ; Start 08/06/18 at 15:30; Stop 08/06/18 at 15:39; Status DC Lidocaine HCl (Xylocaine-Mpf 1% 2ml Vial) 1 ml 1X ONCE INJ Last administered on 08/06/18at 15:35; Start 08/06/18 at 15:30; Stop 08/06/18 at 15:39; Status DC Nitroglycerin (Nitrostat) 0.4 mg PRN Q5MIN PRN SL CHEST PAIN; Start 08/06/18 at 15:30 Metoprolol Tartrate (Lopressor) 12.5 mg BID PO ; Start 08/06/18 at 21:00 Active Scripts Active Reported Metformin Hcl 1,000 Mg Tablet 1,000 Mg PO DAILYWBKFT Ranitidine Hcl 150 Mg Capsule 150 Mg PO DAILY Zyrtec (Cetirizine Hcl) 10 Mg Tablet 1 Tab PO DAILY Doxazosin Mesylate 4 Mg Tablet 4 Mg PO HS Zoloft (Sertraline Hcl) 100 Mg Tablet 1 Tab PO DAILY Hyzaar 50-12.5 Tablet (Losartan/Hydrochlorothiazide) 1 Each Tablet 1 Tab PO DAILY Metformin Hcl 500 Mg Tablet 500 Mg PO HS Simvastatin 10 Mg Tablet 1 Tab PO HS Allergies Allergies: Coded Allergies: No Known Drug Allergies (Unverified , 06/10/14) ROS General: YES: Malaise; No: Chills, Night Sweats, Fatigue, Appetite PSYCHOLOGICAL ROS: No: Anxiety, Behavioral Disorder, Concentration difficultie , Decreased libido, Depression, Disorientation, Hallucinations, Hostility, Irritablity, Memory difficulties, Mood Swings, Obsessive thoughts, Physical abuse, Sexual abuse, Sleep disturbances, Suicidal ideation Eyes: No Blurry vision, No Decreased vision, No Double vision, No Dry eyes, No Excessive tearing, No Eye Pain, No Itchy Eyes, No Loss of vision, No Photophobia , No Scotomata, No Uses contacts, No Uses glasses HEENT: No: Heacaches, Visual Changes, Hearing change, Nasal congestion, Nasal discharge, Oral lesions, Sinus pain, Sore Throat, Epistaxis, Sneezing, Snoring, Tinnitus, Vertigo, Vocal changes ALLERGY AND IMMUNOLOGY: No: Hives, Insect Bite Sensitivity, Itchy/Watery Eyes, Nasal Congestion, Post Nasal Drip, Seasonal Allergies Hematological and Lymphatic: No: Bleeding Problems, Blood Clots, Blood Transfusions, Brusing, Night Sweats, Pallor, Swollen Lymph Nodes ENDOCRINE: No: Breast Changes, Galactorrhea, Hair Pattern Changes, Hot Flashes , Malaise/lethargy, Mood Swings, Palpitations, Polydipsia/polyuria, Skin Changes , Temperature Intolerance, Unexpected Weight Changes Respiratory: No: Cough, Hemoptysis, Orthopnea, Pleuritic Pain, Shortness of breath, SOB with excertion, Sputum Changes, Stridor, Tachypnea, Wheezing Cardiovascular: yes Chest Pain; No Palpitations, No Orthopnea, No Paroxysmal Noc. Dyspnea, No Edema, No Lt Headedness Gastrointestinal: No Nausea, No Vomiting, No Abdominal Pain, No Diarrhea, No Constipation, No Melena, No Hematochezia Genitourinary: No Dysuria, No Frequency, No Incontinence, No Hematuria, No Retention, No Discharge, No Urgency, No Pain, No Flank Pain Musculoskeletal: No Gait Disturbance, No Joint Pain, No Joint Stiffness, No Joint Swelling, No Muscle Pain, No Muscular Weakness, No Pain In:, No Swelling In: Neurological: No Behavorial Changes, No Bowel/Bladder ControlChng, No Confusion , No Dizziness, No Gait Disturbance, No Headaches, No Impaired Coord/balance, No Memory Loss, No Numbness/Tingling, No Seizures, No Speech Problems, No Tremors, No Visual Changes, No Weakness Skin: No Dry Skin, No Eczema, No Hair Changes, No Lumps, No Mole Changes, No Mottling, No Nail Changes, No Pruritus, No Rash, No Skin Lesion Changes, No Acne Physical Exam General: Alert, Oriented X3, No acute distress HEENT: Atraumatic, PERRLA Lungs: Clear to auscultation Heart: Regular rate, Normal S1, Normal S2, No murmurs Abdomen: Soft, No tenderness Extremities: No edema Skin: No significant lesion Neuro: Normal gait, Normal speech, Strength at 5/5 X4 ext, Normal tone, Sensation intact, Cranial nerves 3-12 NL Psych/Mental Status: Mental status NL MUSCULOSKELETAL: No deformity Vitals VITALS Vital Signs Date Time Temp Pulse Resp B/P (MAP) Pulse Ox O2 Delivery O2 Flow Rate FiO2 08/06/18 20:00 Room Air 08/06/18 19:20 98.0 81 20 136/64 (88) 95 98.0 08/06/18 17:49 2.0 Labs Labs Laboratory Tests Test 08/05/18 17:50 08/06/18 02:45 08/06/18 07:31 08/06/18 10:37 White Blood Count 7.4 x10^3/uL (4.0-11.0) 6.1 x10^3/uL (4.0-11.0) Red Blood Count 5.13 x10^6/uL (4.30-5.70) 4.94 x10^6/uL (4.30-5.70) Hemoglobin 15.1 g/dL (13.0-17.5) 14.8 g/dL (13.0-17.5) Hematocrit 44.5 % (39.0-53.0) 42.7 % (39.0-53.0) Mean Corpuscular Volume 87 fL (79-100) 87 fL (79-100) Mean Corpuscular Hemoglobin 30 pg (25-35) 30 pg (25-35) Mean Corpuscular Hemoglobin Concent 34 g/dL (31-37) 35 g/dL (31-37) Red Cell Distribution Width 13.6 % (11.5-14.5) 13.4 % (11.5-14.5) Platelet Count 266 x10^3/uL (140-400) 258 x10^3/uL (140-400) Neutrophils (%) (Auto) 63 % (31-73) 45 % (31-73) Lymphocytes (%) (Auto) 27 % (24-48) 44 % (24-48) Monocytes (%) (Auto) 7 % (0-9) 8 % (0-9) Eosinophils (%) (Auto) 3 % (0-3) 3 % (0-3) Basophils (%) (Auto) 1 % (0-3) 1 % (0-3) Neutrophils # (Auto) 4.7 x10^3uL (1.8-7.7) 2.7 x10^3uL (1.8-7.7) Lymphocytes # (Auto) 2.0 x10^3/uL (1.0-4.8) 2.6 x10^3/uL (1.0-4.8) Monocytes # (Auto) 0.5 x10^3/uL (0.0-1.1) 0.5 x10^3/uL (0.0-1.1) Eosinophils # (Auto) 0.2 x10^3/uL (0.0-0.7) 0.2 x10^3/uL (0.0-0.7) Basophils # (Auto) 0.0 x10^3/uL (0.0-0.2) 0.0 x10^3/uL (0.0-0.2) Sodium Level 140 mmol/L (136-145) 137 mmol/L (136-145) Potassium Level 4.2 mmol/L (3.5-5.1) 3.3 mmol/L (3.5-5.1) Chloride Level 102 mmol/L (98-107) 101 mmol/L (98-107) Carbon Dioxide Level 29 mmol/L (21-32) 28 mmol/L (21-32) Anion Gap 9 (6-14) 8 (6-14) Blood Urea Nitrogen 12 mg/dL (8-26) 12 mg/dL (8-26) Creatinine 1.2 mg/dL (0.7-1.3) 1.1 mg/dL (0.7-1.3) Estimated GFR (Cockcroft-Gault) 59.9 66.2 BUN/Creatinine Ratio 10 (6-20) 11 (6-20) Glucose Level 177 mg/dL (70-99) 171 mg/dL (70-99) Calcium Level 9.7 mg/dL (8.5-10.1) 9.3 mg/dL (8.5-10.1) Magnesium Level 1.7 mg/dL (1.8-2.4) Total Bilirubin 0.3 mg/dL (0.2-1.0) 0.6 mg/dL (0.2-1.0) Aspartate Amino Transf (AST/SGOT) 18 U/L (15-37) 20 U/L (15-37) Alanine Aminotransferase (ALT/SGPT) 24 U/L (16-63) 21 U/L (16-63) Alkaline Phosphatase 49 U/L (46-116) 46 U/L (46-116) Troponin I Quantitative 0.249 ng/mL (0.000-0.055) 1.033 ng/mL (0.000-0.055) 1.997 ng/mL (0.000-0.055) WQ-Ouj-T-Type Natriuretic Peptide 401 pg/mL (0-124) Total Protein 7.0 g/dL (6.4-8.2) 6.5 g/dL (6.4-8.2) Albumin 3.9 g/dL (3.4-5.0) 3.5 g/dL (3.4-5.0) Albumin/Globulin Ratio 1.3 (1.0-1.7) 1.2 (1.0-1.7) Thyroid Stimulating Hormone (TSH) 2.152 uIU/mL (0.358-3.74) Influenza Type A Antigen Negative (NEGATIVE) Influenza Type B Antigen Negative (NEGATIVE) Heparin Anti-Xa Act, Unfractionated 0.10 IU/mL (0.30-0.70) 0.38 IU/mL (0.30-0.70) Triglycerides Level 202 mg/dL (0-150) Cholesterol Level 166 mg/dL (0-200) LDL Cholesterol, Calculated 90 mg/dL (0-100) VLDL Cholesterol, Calculated 40 mg/dL (0-40) Non-HDL Cholesterol Calculated 130 mg/dL (0-129) HDL Cholesterol 36 mg/dL (40-60) Cholesterol/HDL Ratio 4.6 Glucose (Fingerstick) 195 mg/dL (70-99) Test 08/06/18 11:38 08/06/18 21:05 Glucose (Fingerstick) 195 mg/dL (70-99) 160 mg/dL (70-99) Laboratory Tests Test 08/06/18 02:45 08/06/18 07:31 08/06/18 10:37 08/06/18 11:38 White Blood Count 6.1 x10^3/uL (4.0-11.0) Red Blood Count 4.94 x10^6/uL (4.30-5.70) Hemoglobin 14.8 g/dL (13.0-17.5) Hematocrit 42.7 % (39.0-53.0) Mean Corpuscular Volume 87 fL (79-100) Mean Corpuscular Hemoglobin 30 pg (25-35) Mean Corpuscular Hemoglobin Concent 35 g/dL (31-37) Red Cell Distribution Width 13.4 % (11.5-14.5) Platelet Count 258 x10^3/uL (140-400) Neutrophils (%) (Auto) 45 % (31-73) Lymphocytes (%) (Auto) 44 % (24-48) Monocytes (%) (Auto) 8 % (0-9) Eosinophils (%) (Auto) 3 % (0-3) Basophils (%) (Auto) 1 % (0-3) Neutrophils # (Auto) 2.7 x10^3uL (1.8-7.7) Lymphocytes # (Auto) 2.6 x10^3/uL (1.0-4.8) Monocytes # (Auto) 0.5 x10^3/uL (0.0-1.1) Eosinophils # (Auto) 0.2 x10^3/uL (0.0-0.7) Basophils # (Auto) 0.0 x10^3/uL (0.0-0.2) Heparin Anti-Xa Act, Unfractionated 0.10 IU/mL (0.30-0.70) 0.38 IU/mL (0.30-0.70) Sodium Level 137 mmol/L (136-145) Potassium Level 3.3 mmol/L (3.5-5.1) Chloride Level 101 mmol/L (98-107) Carbon Dioxide Level 28 mmol/L (21-32) Anion Gap 8 (6-14) Blood Urea Nitrogen 12 mg/dL (8-26) Creatinine 1.1 mg/dL (0.7-1.3) Estimated GFR (Cockcroft-Gault) 66.2 BUN/Creatinine Ratio 11 (6-20) Glucose Level 171 mg/dL (70-99) Calcium Level 9.3 mg/dL (8.5-10.1) Total Bilirubin 0.6 mg/dL (0.2-1.0) Aspartate Amino Transf (AST/SGOT) 20 U/L (15-37) Alanine Aminotransferase (ALT/SGPT) 21 U/L (16-63) Alkaline Phosphatase 46 U/L (46-116) Troponin I Quantitative 1.033 ng/mL (0.000-0.055) 1.997 ng/mL (0.000-0.055) Total Protein 6.5 g/dL (6.4-8.2) Albumin 3.5 g/dL (3.4-5.0) Albumin/Globulin Ratio 1.2 (1.0-1.7) Triglycerides Level 202 mg/dL (0-150) Cholesterol Level 166 mg/dL (0-200) LDL Cholesterol, Calculated 90 mg/dL (0-100) VLDL Cholesterol, Calculated 40 mg/dL (0-40) Non-HDL Cholesterol Calculated 130 mg/dL (0-129) HDL Cholesterol 36 mg/dL (40-60) Cholesterol/HDL Ratio 4.6 Glucose (Fingerstick) 195 mg/dL (70-99) 195 mg/dL (70-99) Test 08/06/18 21:05 Glucose (Fingerstick) 160 mg/dL (70-99) Images Images FINDINGS 1. Hemodynamics: Left ventricular end-diastolic pressure of 17 mmHg. No pullback gradient across the aortic valve. 2. Left ventriculography: Normal left ventricle systolic function with ejection fraction estimated at 55%. The aortic root appeared to be dilated. No significant mitral regurgitation seen. 3. Coronary angiography: a. The left main coronary artery arose from the left sinus of Valsalva, gave rise to the left anterior descending and left circumflex arteries and showed 20 % distal segment stenosis. b. The left anterior descending artery showed long 70% stenosis involving the midsegment. This was found to be physiologically significant based on IFR measurement of 0.77. The diagonal branch showed aneurysmal dilatation in the very proximal segment followed by 70% stenosis in the proximal to midsegment. c. The left circumflex artery showed 70% stenosis in the large obtuse marginal branch. d. The right coronary artery was a dominant vessel arising from the right sinus of Valsalva that showed two tandem 90% stenoses involving the distal segment. Assessment/Plan Assessment/Plan 72 year old male with DM, HTN, HLD, SREE and family hx of IHD, presents with NSTEMI. LHC demonstrated a proximal 70% LAD stenosis, 70% proximal OM lesion, an ostial diagonal aneurysm and a 95% distal RCA stenosis. LV function is preserved. He is currently chest pain free. The patient is a reasonable candidate for CABG. His LAD and OM are good targets. The RPDA appears small, but may be underfilled. The diagonal with the ostial aneurysm is also small, but potentially bypassable-will assess intraoperatively. The risks which include but are not limited to mortality 2%, stroke 1%, renal failure requiring dialysis 1%, VDRF 1%, pneumonia 5%, wound infection 5%, resternotomy for bleeding 5% and arrhythmias 20% were explained to the patient who agrees to proceed. Informed consent has been obtained. Plan for CABG on August 08 2018 Will obtain Carotid duplex Vein mapping Non contrast CT chest 2 units PRBCs Hold DONALDO inhibitor before heart surgery, start b braxton CHAPARRITA OCAMPO MD Aug 06, 2018 21:53
[2018-08-06] MEDS ORDERED: ACETAMINOPHEN 325 MG TABLET. PO PRN (22:15)
[2018-08-06] MEDS ORDERED: ZOLPIDEM 5 MG TABLET. PO PRN (22:15)
[2018-08-06] MEDS: ATORVASTATIN CALCIUM 40 MG TABLET. PO SCH (22:49)
[2018-08-06] MEDS: METOPROLOL TART IMMED RELEASE 25 MG TABLET. PO SCH (22:50)
[2018-08-06] MEDS: DOXAZOSIN MESYLATE 4 MG TABLET. PO SCH (22:51)
[2018-08-06] MEDS: ALPRAZolam 0.5 MG TABLET PO PRN (22:51)
[2018-08-06 23:10] VITALS: BP 153/82
[2018-08-06] MEDS: NITROGLYCERIN SUBLINGUAL 0.4 MG BOTTLE OF 25. SL PRN (23:33)
--- NOTE | 2018-08-06 23:50 | RAD ---
DOPPLER CAROTID BILAT Clinical Indication: PRE OP CABG. Procedure: Pulsed wave and color-flow duplex imaging was utilized to evaluate the extracranial carotid arteries. Comparison: None. Findings: RIGHT SIDE: Mild atherosclerotic plaque on velazco-scale images. Distal CCA peak systolic velocity 59 cm/sec. ICA peak systolic velocity 62 cm/sec. The right ICA/CCA ratio is 1.0. Flow within the right vertebral artery and right ECA is directed antegrade. LEFT SIDE: Mild atherosclerotic plaque on velazco-scale images. Distal CCA peak systolic velocity 49 cm/sec. ICA peak systolic velocity 54 cm/sec. The left ICA/CCA ratio is 1.1. Flow within the left vertebral artery and left ECA is directed antegrade. Carotid legend: CCA = common carotid artery ICA = internal carotid artery ECA = external carotid artery IMPRESSION: No hemodynamically significant stenosis. Electronically signed by: Deshaun Murdock DO (08/06/2018 11:45 PM) [facility]
[2018-08-07] VITALS (7 sets, daily range): BP systolic 97–157; BP diastolic 44–84
[2018-08-07] MEDS: NITROGLYCERIN SUBLINGUAL 0.4 MG BOTTLE OF 25. SL PRN ×3 (01:14→10:19)
[2018-08-07 05:04] LABS: PROTHROMBIN TIME PATIENT 13.4 SEC (11.7-14.0)
[2018-08-07 05:28] LABS: CALCIUM 9.1 mg/dL (8.5-10.1); CREATININE 1.2 mg/dL (0.7-1.3); GFR 59.9; POTASSIUM 3.7 mmol/L (3.5-5.1)
[2018-08-07] MEDS: FAMOTIDINE 20 MG TABLET. PO SCH ×2 (08:06→20:50)
[2018-08-07] MEDS: hydroCHLOROthiazide 12.5 MG CAPSULE PO SCH (08:06)
[2018-08-07] MEDS: ASPIRIN ENTERIC COATED 81 MG TABLET.DR. PO SCH (08:06)
[2018-08-07] MEDS: CETIRIZINE HCL 10 MG TABLET. PO SCH (08:07)
[2018-08-07] MEDS: SERTRALINE 50 MG TABLET. PO SCH (08:07)
[2018-08-07] MEDS: METOPROLOL TART IMMED RELEASE 25 MG TABLET. PO SCH ×2 (08:07→20:50)
--- NOTE | 2018-08-07 08:55 | PDOC ---
SUBJECTIVE Subjective Doing ok this AM. When he went for CT earlier, felt lightheaded and nausea, but this has resolved. Denies cp, sob. OBJECTIVE Objective Reviewed Vital Signs Vital Signs Date Time Temp Pulse Resp B/P (MAP) Pulse Ox O2 Delivery O2 Flow Rate FiO2 08/07/18 08:07 62 122/66 18 08:05 62 122/66 08/07/18 07:44 97.6 68 18 157/84 (108) 95 Room Air 97.6 08/07/18 03:35 97.8 67 18 138/74 (95) 96 Room Air 97.8 08/07/18 01:14 64 151/87 08/06/18 23:33 64 151/87 08/06/18 23:10 97.8 62 18 153/82 (105) 98 Room Air 97.8 08/06/18 22:51 66 136/64 08/06/18 22:50 81 136/64 08/06/18 20:00 Room Air 08/06/18 19:20 98.0 81 20 136/64 (88) 95 Room Air 98.0 08/06/18 18:37 73 18 94 Room Air 08/06/18 18:22 72 18 97 Room Air 08/06/18 18:03 69 18 98 Room Air 08/06/18 17:49 68 18 97 Nasal Cannula 2.0 08/06/18 17:28 68 18 97 Nasal Cannula 2.0 08/06/18 17:05 68 18 97 Nasal Cannula 2.0 08/06/18 16:55 68 18 97 Nasal Cannula 2.0 08/06/18 16:16 65 18 97 Nasal Cannula 2.0 08/06/18 16:05 97 Nasal Cannula 2.0 08/06/18 16:02 66 18 97 Nasal Cannula 2.0 08/06/18 15:36 66 15 94 Nasal Cannula 4.0 08/06/18 15:35 65 08/06/18 15:34 15 94 Nasal Cannula 4.0 08/06/18 11:00 98.3 72 18 141/76 (97) 96 Nasal Cannula 2.0 98.3 08/06/18 09:17 71 135/76 I & O Intake and Output 08/07/18 07:00 Intake Total 1000 ml Output Total 700 ml Balance 300 ml Intake Oral 1000 ml Output Urine Total 700 ml # Voids 1 PHYSICAL EXAM Physical Exam Alert, oriented, no acute distress EOMI, sclera non-icteric Neck supple RRR, no murmur CTAB, no wheezes, crackles or rhonchi Soft, NT, ND, normal bowel sounds No edema, cyanosis. Normal capillary refill. Calm, cooperative, mood/affect within normal limits ASSESSMENT/PLAN Assessment/Plan NSTEMI Diffuse CAD, requiring CABG Previously well controlled type 2 diabetes Hypertension Hyperlipidemia GERD BPH Erectile dysfunction Sleep apnea Obesity Plan for CABG tomorrow COMMENT Lab Laboratory Tests Test 08/06/18 10:37 08/06/18 11:38 08/06/18 21:05 08/07/18 04:00 Heparin Anti-Xa Act, Unfractionated 0.38 IU/mL (0.30-0.70) Troponin I Quantitative 1.997 ng/mL (0.000-0.055) Glucose (Fingerstick) 195 mg/dL (70-99) 160 mg/dL (70-99) Sodium Level 137 mmol/L (136-145) Potassium Level 3.7 mmol/L (3.5-5.1) Chloride Level 102 mmol/L (98-107) Carbon Dioxide Level 26 mmol/L (21-32) Anion Gap 9 (6-14) Blood Urea Nitrogen 10 mg/dL (8-26) Creatinine 1.2 mg/dL (0.7-1.3) Estimated GFR (Cockcroft-Gault) 59.9 Glucose Level 193 mg/dL (70-99) Calcium Level 9.1 mg/dL (8.5-10.1) Test 08/07/18 04:10 08/07/18 07:34 Prothrombin Time 13.4 SEC (11.7-14.0) Prothromb Time International Ratio 1.1 (0.8-1.1) Activated Partial Thromboplast Time 26 SEC (24-38) Glucose (Fingerstick) 182 mg/dL (70-99) BEATRICE LOVELL MD Aug 07, 2018 08:55
--- NOTE | 2018-08-07 10:45 | RAD ---
Chest CT without contrast Clinical indications: Preoperative study prior to CABG. History of right sided chest pain and hypertension and diabetes. COMPARISON: No previous chest CT available. TECHNIQUE: Noncontrast helical CT scanning of the chest was performed. Without contrast, the sensitivity to detect organ pathology is decreased. PQRS compliance Statement One or more of the following individualized dose reduction techniques were utilized for this study: 1. Automated exposure control 2. Adjustment of the mA and/or kV according to patient size 3. Use of iterative reconstruction technique FINDINGS: Significant calcified atheromatous disease of the coronary arteries is seen. No calcification of aortic valve leaflets is seen. The heart size is normal and no pericardial effusion is seen. No calcified atheromatous disease of the thoracic aorta is seen and no focal aneurysmal dilatation is evident. No enlarged thoracic lymphadenopathy is evident. A small hiatal hernia is evident. There is wall thickening of the esophagus which may be secondary to reflux esophagitis. No pleural effusion or pneumothorax is seen. No lung mass is evident. There is a small focus of groundglass infiltrate posteriorly within the superior segment of the right lower lobe most likely representing atelectasis. No lung consolidation is seen otherwise. The proximal bronchial tree is patent. No lytic process is seen. There is a compression fracture of L1 and this is chronic and unchanged from a chest x-ray dated 2005. Contrast is seen within the gallbladder from recent heart catheterization. There is a hypodense mass within the neck of the gallbladder measuring 2.5 cm in size. No extra hepatic biliary ductal dilatation is seen. No adrenal mass is evident. IMPRESSION: Significant calcified atheromatous disease of the coronary arteries. No lung mass or consolidative lung infiltrate is seen. Small hiatal hernia. Wall thickening of the esophagus which may be seen with reflux esophagitis. 2.5 cm hypodense mass within the neck of the gallbladder. This could represent a large gallstone but recommend right upper quadrant abdomen ultrasound study including color Doppler flow evaluation for further evaluation. Electronically signed by: Win Howard MD (08/07/2018 10:41 AM) [facility]
--- NOTE | 2018-08-07 10:49 | RAD ---
Duplex venous sonography of the lower extremities-vein mapping Clinical indications: Preoperative study prior to CABG. FINDINGS: Duplex sonography of the greater saphenous and lesser saphenous veins of both lower extremities was performed including grayscale evaluation and color flow and waveform spectral analysis. A vein map was drawn and placed into the patient's PACS record. Right leg: Greater saphenous vein measures 6.7 mm in caliber within the upper aspect of the thigh and 3.6 mm in caliber within the inferior lower leg. The lesser saphenous vein measures 3.2 mm in caliber within the upper calf and 2.8 mm in caliber within the lower calf. Both veins are compressible and patent. Left leg: Greater saphenous vein measures 5.4 mm in caliber within the upper aspect of the thigh and 3.5 mm in caliber within the inferior lower leg. The lesser saphenous vein measures 2.2 mm in caliber within the upper calf and 2.0 mm in caliber within the lower calf. Both veins are compressible and patent. IMPRESSION: Vein mapping of the greater saphenous and lesser saphenous veins of both lower extremities as discussed above. Both veins are patent. See vein map in PACS record. Electronically signed by: Win Howard MD (08/07/2018 10:45 AM) [facility]
--- NOTE | 2018-08-07 12:00 | PDOC ---
CARDIO Progress Notes Date and Time Date of Service 08/07/2018 Time of Evaluation 1150 Subjective Subjective: No shortness of breath, No Palpitations, Other (still having mild chest tightness) Vitals Vitals Vital Signs Date Time Temp Pulse Resp B/P (MAP) Pulse Ox O2 Delivery O2 Flow Rate FiO2 08/07/18 11:42 97.7 65 18 124/69 (87) 96 Room Air 97.7 08/07/18 08:00 2.0 Weight Weight [ ] Input and Output Intake and Output Intake and Output 08/07/18 07:00 Intake Total 1000 ml Output Total 700 ml Balance 300 ml Intake Oral 1000 ml Output Urine Total 700 ml # Voids 1 Laboratory Labs Laboratory Tests Test 08/06/18 21:05 08/07/18 04:00 08/07/18 04:10 08/07/18 07:34 Glucose (Fingerstick) 160 mg/dL (70-99) 182 mg/dL (70-99) Sodium Level 137 mmol/L (136-145) Potassium Level 3.7 mmol/L (3.5-5.1) Chloride Level 102 mmol/L (98-107) Carbon Dioxide Level 26 mmol/L (21-32) Anion Gap 9 (6-14) Blood Urea Nitrogen 10 mg/dL (8-26) Creatinine 1.2 mg/dL (0.7-1.3) Estimated GFR (Cockcroft-Gault) 59.9 Glucose Level 193 mg/dL (70-99) Calcium Level 9.1 mg/dL (8.5-10.1) Prothrombin Time 13.4 SEC (11.7-14.0) Prothromb Time International Ratio 1.1 (0.8-1.1) Activated Partial Thromboplast Time 26 SEC (24-38) Test 08/07/18 11:22 Glucose (Fingerstick) 250 mg/dL (70-99) Physical Exam HEENT: Neck Supple W Full Motion Chest: Symmetric LUNGS: Clear to Auscultation Heart: S1S2, RRR (SR) Abdomen: Soft N/T Extremities: No Calf Tenderness Neurology: alert, oriented, follow commands Assessment Assessment 1. NSTEMI: LHC revealed 3VD. EF 60-65% mild CP remains 2. HTN: controlled 3. HLP 4. DM2 5. Obesity Recommendations 1. CABG planned tomorrow per CTS 2. ASA. BB, statin. Start NTG paste. Tylenol PRN. Trop and EKG. No rhythm ectopies ERNESTINE WORRELL APRN Aug 07, 2018 12:00
[2018-08-07] MEDS: NITROGLYCERIN OINT 1 GM PACKET. TP SCH ×3 (12:50→20:49)
[2018-08-07] MEDS: ACETAMINOPHEN 325 MG TABLET. PO PRN ×2 (13:44→20:50)
[2018-08-07] MEDS ORDERED: INSULIN LISPRO 300 UNITS/3 ML INSULN.PEN. SQ ONE (13:45)
--- NOTE | 2018-08-07 16:05 | EKG ---
[facility] [address] [place] [address] Test Date: 2018-08-07 Test Time: 15:57:55 Pat Name: JELANI HOPKINS Department: Room: 256 1 Gender: M Clinical Systems Analyst: AT : 1945 Requested By: ERNESTINE WORRELL Order Number: [id number] Reading MD: Isaiah Campuzano Measurements Intervals [place] Rate: 59 P: 39 MD: 164 QRS: 59 QRSD: 96 T: -13 QT: 412 QTc: 412 Interpretive Statements SINUS RHYTHM Electronically Signed On 08-13-2018 10:09:34 SALES MARKETING MANAGER by Isaiah Campuzano
[2018-08-07] MEDS: PANTOPRAZOLE 40 MG TABLET.DR. PO SCH (18:32)
[2018-08-07 19:18] LABS: HEMOGLOBIN A1C 8.3 % (4.8-5.6)
[2018-08-07] MEDS: ATORVASTATIN CALCIUM 40 MG TABLET. PO SCH (20:49)
[2018-08-07] MEDS: DOXAZOSIN MESYLATE 4 MG TABLET. PO SCH (20:50)
[2018-08-07] MEDS ORDERED: INSULIN GLARGINE 300 UNITS/3 ML INSULN.PEN. SQ SCH (21:00)
[2018-08-08] VITALS (7 sets, daily range): BP systolic 100–153; BP diastolic 45–73
[2018-08-08] MEDS: METOPROLOL TART IMMED RELEASE 25 MG TABLET. PO SCH ×2 (05:25→21:00)
[2018-08-08] MEDS ORDERED: POTASSIUM CHLORIDE 70 MEQ, SODIUM BICARBONATE VIAL 12.5 MEQ, LIDOCAINE 2% 24 ML in IV E... IRR ONE (06:00)
[2018-08-08] MEDS ORDERED: POTASSIUM CHLORIDE 15 MEQ, SODIUM BICARBONATE VIAL 12.5 MEQ in IV ELECTROLYTE-S (PH 7.4... IRR ONE (06:00)
[2018-08-08] MEDS ORDERED: HEPARIN 20,000 UNIT in IV RINGERS,LACTATED 1000ML 1,000 ML IRR ONE (06:00)
[2018-08-08] MEDS: NITROGLYCERIN OINT 1 GM PACKET. TP SCH ×2 (06:00→12:00)
[2018-08-08] MEDS ORDERED: ETOMIDATE 20 MG/10 ML VIAL. IV ONE (06:16)
[2018-08-08] MEDS ORDERED: LIDOCAINE 2% PF Vial for OR 5 ML VIAL. ONE (06:16)
[2018-08-08] MEDS ORDERED: PHENYLEPHRINE 10 MG/ML VIAL. ONE (06:16)
[2018-08-08] MEDS ORDERED: AMINOCAPROIC ACID 5,000 MG/20 ML VIAL. IV ONE (06:16)
[2018-08-08] MEDS ORDERED: ROCURONIUM 100 MG/10 ML VIAL. ONE ×2 (06:19→09:48)
[2018-08-08] MEDS ORDERED: HEPARIN 30,000 UNIT/30 ML VIAL. ONE ×2 (06:20→13:04)
[2018-08-08] MEDS ORDERED: HEPARIN for IV BOLUS 10,000 UNIT/10 ML VIAL. ONE ×5 (06:21→13:04)
[2018-08-08] MEDS ORDERED: NITROGLYCERIN PREMIX 250 ML IV ONE (06:23)
[2018-08-08] MEDS ORDERED: MIDAZOLAM HCL/PF 2 MG/2 ML VIAL. ONE ×5 (06:24→12:21)
[2018-08-08] MEDS ORDERED: SURGICEL HEMOSTAT 4X8 EACH. ONE (06:31)
[2018-08-08] MEDS ORDERED: VANCOMYCIN 10GM VIAL for OR. ONE (06:31)
[2018-08-08] MEDS ORDERED: PAPAVERINE 60 MG/2 ML VIAL FOR OR ONLY. ONE (06:31)
[2018-08-08] MEDS ORDERED: ASPIRIN 300 MG SUPP.RECT ONE (06:31)
[2018-08-08] MEDS ORDERED: 0.9 % SODIUM CHLORIDE 20 ML VIAL. IJ ONE ×3 (06:31)
[2018-08-08] MEDS ORDERED: ePHEDrine PF IN SALINE 50 MG/5 ML DISP.SYRIN IV ONE (06:42)
[2018-08-08] MEDS ORDERED: ceFAZolin 2GM PREMIX 2 GM/50 ML BAG IV ONE (07:13)
[2018-08-08] MEDS ORDERED: MANNITOL 20% PREMIX 500 ML IV ONE (07:30)
[2018-08-08] MEDS: PANTOPRAZOLE 40 MG TABLET.DR. PO SCH (07:30)
--- NOTE | 2018-08-08 07:37 | PDOC ---
SUBJECTIVE Subjective Pt was taken down for CABG early this AM. No reported overnight events. OBJECTIVE Objective Reviewed. Vital Signs Vital Signs Date Time Temp Pulse Resp B/P (MAP) Pulse Ox O2 Delivery O2 Flow Rate FiO2 08/08/18 05:25 84 153/73 08/08/18 03:00 98.1 84 18 153/73 (99) 97 Room Air 98.1 08/08/18 03:00 84 18 145/72 (96) 97 Room Air 08/07/18 23:09 98.2 88 18 116/59 (78) 96 Room Air 98.2 08/07/18 20:50 74 121/64 08/07/18 20:50 74 121/64 08/07/18 20:49 74 121/64 08/07/18 20:00 Room Air 08/07/18 19:00 98.2 74 18 121/64 (83) 96 Room Air 98.2 08/07/18 18:32 69 97/44 08/07/18 15:30 97.8 69 18 97/44 (61) 100 Room Air 97.8 08/07/18 12:50 73 142/70 08/07/18 11:42 97.7 65 18 124/69 (87) 96 Room Air 97.7 08/07/18 10:19 70 132/68 08/07/18 08:07 62 122/66 08/07/18 08:05 62 122/66 08/07/18 08:00 68 95 Room Air 2.0 08/07/18 08:00 Room Air 08/07/18 07:44 97.6 68 18 157/84 (108) 95 Room Air 97.6 I & O Intake and Output 08/08/18 07:00 Intake Total 680 ml Output Total 2575 ml Balance -1895 ml Intake Oral 680 ml Output Urine Total 2575 ml PHYSICAL EXAM Physical Exam Not performed as pt in surgery ASSESSMENT/PLAN Assessment/Plan NSTEMI Diffuse CAD Previously well controlled type 2 diabetes Hypertension Hyperlipidemia GERD BPH Erectile dysfunction Sleep apnea Obesity CABG today COMMENT Lab Laboratory Tests Test 08/07/18 08:10 08/07/18 11:22 08/07/18 14:40 08/07/18 16:45 Nasal Screen MRSA (PCR) Negative (Negative) Glucose (Fingerstick) 250 mg/dL (70-99) 201 mg/dL (70-99) Troponin I Quantitative 1.482 ng/mL (0.000-0.055) Test 08/07/18 20:46 08/08/18 06:14 Glucose (Fingerstick) 221 mg/dL (70-99) 219 mg/dL (70-99) BEATIRCE LOVELL MD Aug 08, 2018 07:37
[2018-08-08] MEDS ORDERED: SUFentanil 250 MCG/5 ML AMPUL. ONE (07:57)
[2018-08-08] MEDS: ASPIRIN ENTERIC COATED 81 MG TABLET.DR. PO SCH (08:00)
[2018-08-08] MEDS: FAMOTIDINE 20 MG TABLET. PO SCH ×2 (09:00→21:00)
[2018-08-08] MEDS: hydroCHLOROthiazide 12.5 MG CAPSULE PO SCH (09:00)
[2018-08-08] MEDS: SERTRALINE 50 MG TABLET. PO SCH (09:00)
[2018-08-08] MEDS: CETIRIZINE HCL 10 MG TABLET. PO SCH (09:00)
[2018-08-08] MEDS ORDERED: NOREPINEPHRIN 8MG/250ML PREMIX 250 ML IV PRN (10:45)
[2018-08-08] MEDS ORDERED: POTASSIUM CHLORIDE 20 MEQ/10 ML IV ONE ×2 (12:04)
[2018-08-08] MEDS ORDERED: PROTAMINE 250 MG/25 ML VIAL IV ONE ×2 (12:44)
[2018-08-08] MEDS ORDERED: ROCURONIUM 50 MG/5 ML VIAL. ONE (12:49)
[2018-08-08] MEDS ORDERED: MIDAZOLAM HCL/PF 5 MG/5 ML VIAL. ONE (13:01)
[2018-08-08] MEDS ORDERED: LIDOCAINE 1% PF 5 ML VIAL. ONE (13:04)
[2018-08-08] MEDS ORDERED: MAGNESIUM SULFATE 5 GM/10 ML VIAL. ONE (13:04)
[2018-08-08] MEDS ORDERED: SODIUM BICARB ADULT 8.4% 50 MEQ/50 ML DISP.SYRIN. ONE (13:04)
[2018-08-08] MEDS ORDERED: CALCIUM CHLORIDE 1,000 MG/10 ML DISP.SYRIN ONE (13:04)
[2018-08-08] MEDS ORDERED: ALBUMIN HUMAN 25% 200 ML IV ONE (13:04)
[2018-08-08 13:47] LABS: ART BE ISTAT -1 mmol/L (0-3); ART GLUC ISTAT 184 mg/dL (70-99); ART HCO3 ISTAT 23 mmol/L (21-28); ART HCT ISTAT 40 % (37-52); ART HGB ISTAT 13.6 g/dL (14-18); ART K ISTAT 3.7 mmol/L (3.5-5.0); ART NA ISTAT 138 mmol/L (135-145); ART PCO2 ISTAT 33 mmHg (35-45); ART PH ISTAT 7.46 (7.35-7.45); ART PO2 ISTAT 201 mmHg (75-100); ART SAT O2 SAT 100 % (95-99); ART TCO2 ISTAT 24 mmol/L (21-32)
[2018-08-08 13:48] LABS: FIO2 ISTAT 100; VEN BASE EXCESS ISTAT -3 mmol/L (0-3); VEN GLUC ISTAT 175 mg/dL (70-99); VEN HCO3 ISTAT 23 mmol/L (24-28); VEN HCT ISTAT 36 % (37-52); VEN HGB ISTAT 12.2 g/dL (14-18); VEN ION CA ISTAT 1.19 mmol/L (1.13-1.32); VEN K ISTAT 3.8 mmol/L (3.5-5.0); VEN NA ISTAT 139 mmol/L (135-145); VEN O2 ISTAT 55 mmHg (20-40); VEN PCO2 ISTAT 48 mmHg (41-51); VEN PH ISTAT 7.29 (7.32-7.42); VEN SO2 ISTAT 84 %; VEN TCO2 ISTAT 25 mmol/L (21-32)
[2018-08-08 13:48] LABS: ART BE ISTAT -2 mmol/L (0-3); ART GLUC ISTAT 178 mg/dL (70-99); ART HCO3 ISTAT 24 mmol/L (21-28); ART HCT ISTAT 36 % (37-52); ART HGB ISTAT 12.2 g/dL (14-18); ART K ISTAT 3.8 mmol/L (3.5-5.0); ART NA ISTAT 139 mmol/L (135-145); ART PCO2 ISTAT 48 mmHg (35-45); ART PH ISTAT 7.31 (7.35-7.45); ART PO2 ISTAT 286 mmHg (75-100); ART SAT O2 SAT 100 % (95-99); ART TCO2 ISTAT 26 mmol/L (21-32)
[2018-08-08 13:48] LABS: ART BE ISTAT -3 mmol/L (0-3); ART GLUC ISTAT 188 mg/dL (70-99); ART HCO3 ISTAT 22 mmol/L (21-28); ART HCT ISTAT 40 % (37-52); ART HGB ISTAT 13.6 g/dL (14-18); ART ION CA ISTAT 1.18 mmol/L (1.13-1.32); ART K ISTAT 3.7 mmol/L (3.5-5.0); ART NA ISTAT 139 mmol/L (135-145); ART PCO2 ISTAT 32 mmHg (35-45); ART PH ISTAT 7.43 (7.35-7.45); ART PO2 ISTAT 223 mmHg (75-100); ART SAT O2 SAT 100 % (95-99); ART TCO2 ISTAT 23 mmol/L (21-32)
[2018-08-08 13:48] LABS: ART BE ISTAT -2 mmol/L (0-3); ART GLUC ISTAT 184 mg/dL (70-99); ART HCO3 ISTAT 25 mmol/L (21-28); ART HCT ISTAT 36 % (37-52); ART HGB ISTAT 12.2 g/dL (14-18); ART ION CA ISTAT 1.22 mmol/L (1.13-1.32); ART K ISTAT 3.9 mmol/L (3.5-5.0); ART NA ISTAT 139 mmol/L (135-145); ART PCO2 ISTAT 56 mmHg (35-45); ART PH ISTAT 7.26 (7.35-7.45); ART PO2 ISTAT 297 mmHg (75-100); ART SAT O2 SAT 100 % (95-99); ART TCO2 ISTAT 26 mmol/L (21-32)
[2018-08-08 13:48] LABS: ART BE ISTAT -1 mmol/L (0-3); ART GLUC ISTAT 171 mg/dL (70-99); ART HCO3 ISTAT 25 mmol/L (21-28); ART HCT ISTAT 33 % (37-52); ART HGB ISTAT 11.2 g/dL (14-18); ART ION CA ISTAT 1.18 mmol/L (1.13-1.32); ART K ISTAT 4.5 mmol/L (3.5-5.0); ART NA ISTAT 138 mmol/L (135-145); ART PCO2 ISTAT 47 mmHg (35-45); ART PH ISTAT 7.33 (7.35-7.45); ART PO2 ISTAT 344 mmHg (75-100); ART SAT O2 SAT 100 % (95-99); ART TCO2 ISTAT 26 mmol/L (21-32)
[2018-08-08 13:51] LABS: HEMATOCRIT 34.5 % (39.0-53.0); HEMOGLOBIN 11.8 g/dL (13.0-17.5); WHITE BLOOD COUNT 12.9 x10^3/uL (4.0-11.0)
--- NOTE | 2018-08-08 13:57 | PDOC ---
BRIEF OPERATIVE NOTE Date: Aug 08, 2018 Pre-Op Diagnosis NSTEMI 3-vessel coronary artery disease Coronary artery aneurysm Diabetes Obstructive sleep apnea Hypertension Hyperlipidemia Morbid obesity Post-Op Diagnosis NSTEMI 3-vessel coronary artery disease Coronary artery aneurysm Diabetes Obstructive sleep apnea Hypertension Hyperlipidemia Morbid obesity Procedure Performed CABG x 4 (PRADO to LAD, SVG to RPDA, SVG to OM2, SVG to diagonal 1) Left endoscopic greater saphenous vein harvest Surgeon Chaparrita Ocampo MD, FACS Manifold Builder Shira Leiva, [facility] Viktoria Esteban [facility] Anesthesiologist Dr Olivera Anesthesia Type: General Blood Loss Cellsaver IV Fluid Crystalloid: 1000 mls Albumin: 500 mls Cellsaver: 650 mls Urine Output 850 mls Specimens Obtained None Findings Good 2mm LAD, RPDA, OM and diagonal targets Excellent size and quality saphenous vein conduit Excellent flow in PRADO Normal LV function CPB time: 122 min x-clamp time: 105 min Complications None CHAPARRITA OCAMPO MD Aug 08, 2018 13:57
[2018-08-08 13:59] LABS: PROTHROMBIN TIME PATIENT 17.1 SEC (11.7-14.0)
--- NOTE | 2018-08-08 13:59 | PDOC4 ---
Operative Note Operative Note Date Aug 08, 2018 Preoperative diagnosis NSTEMI 3-vessel coronary artery disease Coronary artery aneurysm Diabetes Obstructive sleep apnea Hypertension Hyperlipidemia Morbid obesity Postoperative diagnosis NSTEMI 3-vessel coronary artery disease Coronary artery aneurysm Diabetes Obstructive sleep apnea Hypertension Hyperlipidemia Morbid obesity Procedure performed CABG x 4 (PRADO to LAD, SVG to RPDA, SVG to OM2, SVG to diagonal 1) Left endoscopic greater saphenous vein harvest Surgeon Merline Ocampo MD, FACS Powder Compounder Shira Leiva, FINANCIAL DATA ANALYSTJoe Esteban [facility] Anesthesiologist Dr Olivera Anesthesia type General Blood loss Cellsaver IV fluids Crystalloid: 1000 mls Albumin: 500 mls Cellsaver: 650 mls Urine output 850 mls Specimens obtained None Findings Good 2mm LAD, RPDA, OM and diagonal targets Excellent size and quality saphenous vein conduit Excellent flow in PRADO Normal LV function CPB time: 122 min x-clamp time: 105 min Complications None Indication The patient is a 72 year old male with a hx of type II DM, HTN, HLP, SREE, and family hx of IHD, who presented with chest pain radiating to his right shoulder and fatigue. This was his first ever episode. Denies SOB. Troponin peaked at 2. No acute EKG changes. LHC demonstrated a proximal 70% LAD stenosis, 70% proximal OM lesion, an ostial diagonal aneurysm and a 95% distal RCA stenosis. LV function is preserved. A CABG was indicated. Operation After appropriate identification, the patient was brought to the operating room and placed supine on the operating table. Anesthesia was induced and the airway was secured with an endotracheal tube. A right IJ Fulton-Clemente catheter was placed. A left radial arterial line was also inserted. Antibiotics were delivered and the patient was preped and draped in the usual standard surgical sterile fashion. A timeout was then performed. A median sternotomy was performed and the left internal mammary artery was harvested, which was of excellnet size, with excellent flow. Simultaneously the left greater saphenous vein was harvested endoscopically, which was of good quality and caliber. The pericardium was incised. The patient was heparinized. Cardiopulmonary bypass was established through the ascending aorta and the right atrium. A bifurcating antegrade cardioplegia and root vent needle was placed in the ascending aorta. The patient was cooled to 34. Arrest was achieved with induction antegrade cold blood cardioplegia. The cross-clamp was applied and diastolic arrest was achieved. Intermittent dosages of antegrade cardioplegia were given every 20 minutes. Grafts: Saphenous vein graft to right posterior descending coronary artery, end to side anastomosis with 7-0 Prolene. 2mm vessel. Saphenous vein graft o obtuse marginal coronary artery 2, end to side anastomosis with 7-0 Prolene, 2 mm vessel. Saphenous vein graft to diagonal 1 coronary artery, end to side anastomosis with 7-0 Prolene, 2 mm vessel Left internal mammary artery to left anterior descending coronary artery, end to side anastomosis with 7-0 Prolene. 2 mm vessel Three proximal anastomosis were performed using a 5-0 Prolene running suture. The cross-clamp was removed. The heart was allowed to rewarm and reperfuse. The grafts were de-aired. The patient resumed normal sinus rhythm and was from cardiopulmonary bypass without pharmacologic support. All cannulae were removed. Heparin was reversed with protamine. Atrial and ventricular pacing wires were placed. Hemostasis was confirmed. An angled 32 Russian chest tube was placed in the left pleural space, a 32Fr angled in the posterior pericardium and a 32 straight in the anterior pericardium. The sternotomy was closed with seven stainless steel wires. The incision was closed with a layer of 0 Vicryl, followed by 2-0 Vicryl and then 4-0 Monocryl for the epidermis. Sterile dressings were applied. The total cardiopulmonary bypass time was 122 minutes and the cross-clamp time was 105 minutes. The instrument, sponge and needle counts were correct. The patient was then transferred to the ICU in critical condition. MERLINE OCAMPO MD Aug 08, 2018 13:59
[2018-08-08] MEDS ORDERED: KCL PER PROTOCOL MC PRN (14:00)
[2018-08-08] MEDS ORDERED: ONDANSETRON PF 4 MG/2 ML VIAL. IV PRN (14:00)
[2018-08-08] MEDS ORDERED: 0.9 % SODIUM CHLORIDE 10 ML DISP.SYRIN. IV PRN (14:00)
[2018-08-08] MEDS ORDERED: INSULIN REGULAR VIAL 150 UNIT in 0.9 % SODIUM CHLORIDE 150ML 150 ML IV PRN (14:00)
[2018-08-08] MEDS ORDERED: ALBUTEROL SULFATE 2.5 MG/3 ML NEBU. NEB PRN (14:00)
[2018-08-08] MEDS ORDERED: AMIODARONE 150 MG in IV DEXTROSE 5% 100ML 100 ML IV PRN (14:00)
[2018-08-08] MEDS ORDERED: PHENYLEPHRINE INJ 20 MG in IV NORMAL SALINE 250ML 250 ML IV PRN (14:00)
[2018-08-08] MEDS ORDERED: PROPOFOL 100 ML IV PRN (14:00)
[2018-08-08] MEDS ORDERED: MEPERIDINE PF 25 MG/ML VIAL. IV PRN (14:00)
[2018-08-08] MEDS ORDERED: MAGNESIUM SULFATE 1GM 100 ML IV PRN (14:00)
[2018-08-08] MEDS ORDERED: NITROGLYCERIN PREMIX 250 ML IV PRN (14:00)
[2018-08-08] MEDS ORDERED: ASPIRIN 300 MG SUPP.RECT PR PRN (14:00)
[2018-08-08] MEDS ORDERED: DEXTROSE 50% 25 GM / 50ML DISP.SYRIN. IV PRN (14:00)
[2018-08-08] MEDS ORDERED: AMIODARONE 900 MG in IV DEXTROSE 5% 500 ML IV PRN (14:00)
[2018-08-08 14:18] LABS: ART BE ISTAT -1 mmol/L (0-3); ART GLUC ISTAT 130 mg/dL (70-99); ART HCO3 ISTAT 24 mmol/L (21-28); ART HCT ISTAT 33 % (37-52); ART HGB ISTAT 11.2 g/dL (14-18); ART ION CA ISTAT 1.41 mmol/L (1.13-1.32); ART K ISTAT 3.8 mmol/L (3.5-5.0); ART NA ISTAT 141 mmol/L (135-145); ART PCO2 ISTAT 36 mmHg (35-45); ART PH ISTAT 7.42 (7.35-7.45); ART PO2 ISTAT 261 mmHg (75-100); ART SAT O2 SAT 100 % (95-99); ART TCO2 ISTAT 25 mmol/L (21-32)
[2018-08-08] MEDS: IV RINGERS,LACTATED 1000ML 1,000 ML IV SCH (14:50)
[2018-08-08 15:03] LABS: BASE EXCESS COOX -4 mmol/L (-3-3); HCO3 COOX 23 mmol/L (21-28); METHEMOGLOBIN 0.4 % (0.0-1.9); OXYHEMOGLOBIN 97.2 %; PCO2 COOX 48 mmHg (35-46); PO2 COOX 145 mmHg (65-108); SAT O2 COOX 99 % (92-99)
[2018-08-08 15:08] LABS: HEMOGLOBIN 13.6 g/dL (13.0-17.5); RED BLOOD COUNT 4.6 x10^6/uL (4.30-5.70); RED CELL DISTRIBUTION WIDTH 13.6 % (11.5-14.5); WHITE BLOOD COUNT 17.2 x10^3/uL (4.0-11.0)
[2018-08-08] MEDS ORDERED: SODIUM BICARB ADULT 8.4% 50 MEQ/50 ML DISP.SYRIN. IV ONE (15:15)
[2018-08-08 15:17] LABS: PROTHROMBIN TIME PATIENT 16.3 SEC (11.7-14.0)
[2018-08-08 15:22] LABS: CALCIUM 9.7 mg/dL (8.5-10.1); CREATININE 1.2 mg/dL (0.7-1.3); GFR 59.9; POTASSIUM 4.3 mmol/L (3.5-5.1)
[2018-08-08 15:23] LABS: MAGNESIUM 2.3 mg/dL (1.8-2.4)
[2018-08-08] MEDS: ALBUMIN HUMAN 5% 250 ML IV PRN ×3 (15:44→17:25)
--- NOTE | 2018-08-08 16:02 | RAD ---
Indication:POST OP CXR IN OR, POST CABG, ALL POST OP COUNTS REPORTED CORRECT PER OR. TECHNIQUE:Portable AP chest X-ray COMPARISON:None FINDINGS: ET tube is seen approximately 1.5 cm above the level of eleazar. NG tube is seen with its tip in the stomach. Pulmonary artery catheter is seen with its tip in the right outflow tract. 2 chest tubes are seen. Lungs are clear. No pneumothorax or pleural effusion. Visualized bony thorax is within normal limits. IMPRESSION: Expected CABG changes. No acute pulmonary process. Electronically signed by: Deshaun Murdock DO (08/08/2018 3:58 PM) [facility]
[2018-08-08] MEDS: INSULIN REGULAR VIAL 150 UNIT in 0.9 % SODIUM CHLORIDE 150ML 150 ML IV PRN (16:03)
[2018-08-08] MEDS ORDERED: POTASSIUM CHL 20MEQ PREMIX 50 ML IV ONE ×2 (16:15→21:15)
[2018-08-08] MEDS: MORPHINE SULFATE 2 MG/ML VIAL. IV PRN (16:39)
[2018-08-08] MEDS: oxyCODONE IR 5 MG TABLET PO PRN ×2 (19:13→22:39)
[2018-08-08 19:25] LABS: HEMATOCRIT 35.1 % (39.0-53.0); HEMOGLOBIN 11.9 g/dL (13.0-17.5); RED BLOOD COUNT 4.03 x10^6/uL (4.30-5.70); RED CELL DISTRIBUTION WIDTH 13.5 % (11.5-14.5); WHITE BLOOD COUNT 11.7 x10^3/uL (4.0-11.0)
[2018-08-08] MEDS ORDERED: FAMOTIDINE 20 MG/2 ML VIAL IVP SCH (21:00)
[2018-08-08] MEDS ORDERED: INSULIN GLARGINE 300 UNITS/3 ML INSULN.PEN. SQ SCH (21:00)
[2018-08-08] MEDS ORDERED: CHLORHEXIDINE 0.12% 15 ML MOUTHWASH. MM SCH (21:00)
[2018-08-08] MEDS: ACETAMINOPHEN 325 MG TABLET. PO PRN (21:08)
[2018-08-08] MEDS: ATORVASTATIN CALCIUM 40 MG TABLET. PO SCH (21:08)
[2018-08-08] MEDS: DOXAZOSIN MESYLATE 4 MG TABLET. PO SCH (22:39)
[2018-08-09] VITALS (24 sets, daily range): BP systolic 109–147; BP diastolic 45–84
[2018-08-09 00:07] LABS: BASE EXCESS ABG -4 mmol/L (-3-3); HCO3 ABG 20 mmol/L (21-28); PCO2 ABG 33 mmHg (35-46); PO2 ABG 113 mmHg (65-108); SAT O2 ABG 98 % (92-99)
[2018-08-09] MEDS: ACETAMINOPHEN 325 MG TABLET. PO PRN ×5 (01:15→22:11)
[2018-08-09] MEDS: MORPHINE SULFATE 2 MG/ML VIAL. IV PRN ×3 (01:15→20:36)
[2018-08-09] MEDS: oxyCODONE IR 5 MG TABLET PO PRN ×5 (02:53→19:27)
[2018-08-09] MEDS ORDERED: FUROSEMIDE 20 MG/2 ML VIAL. IVP ONE (03:00)
[2018-08-09] MEDS: ALPRAZolam 0.5 MG TABLET PO PRN ×3 (03:02→22:11)
[2018-08-09 03:59] LABS: HEMATOCRIT 35.9 % (39.0-53.0); HEMOGLOBIN 12.5 g/dL (13.0-17.5); RED BLOOD COUNT 4.15 x10^6/uL (4.30-5.70); RED CELL DISTRIBUTION WIDTH 13.6 % (11.5-14.5); WHITE BLOOD COUNT 12.1 x10^3/uL (4.0-11.0)
[2018-08-09 04:06] LABS: CREATININE 1.2 mg/dL (0.7-1.3); GFR 59.9; MAGNESIUM 1.9 mg/dL (1.8-2.4); POTASSIUM 4.1 mmol/L (3.5-5.1)
[2018-08-09] MEDS: CETIRIZINE HCL 10 MG TABLET. PO SCH (07:52)
[2018-08-09] MEDS: hydroCHLOROthiazide 12.5 MG CAPSULE PO SCH (07:53)
[2018-08-09] MEDS: SERTRALINE 50 MG TABLET. PO SCH (07:54)
[2018-08-09] MEDS: PANTOPRAZOLE 40 MG TABLET.DR. PO SCH (07:54)
[2018-08-09] MEDS: ASPIRIN ENTERIC COATED 325 MG TABLET.DR. PO SCH (07:54)
--- NOTE | 2018-08-09 07:58 | RAD ---
Indication:POST OP TECHNIQUE:Portable AP chest X-ray COMPARISON:08/08/2018 FINDINGS: Interval removal of ET tube, NG tube and pulmonary artery catheter. Right IJ sheath is seen. CABG changes noted. Stable chest tubes. Lungs are clear. No pneumothorax or pleural effusion. Visualized bony thorax is within normal limits. IMPRESSION: Postop changes from CABG with removal of lines and tubes as described above. Electronically signed by: Deshaun Murdock DO (08/09/2018 7:54 AM) [facility]
--- NOTE | 2018-08-09 08:01 | PDOC ---
Provider Note Provider Note med stable after cabg, walking, labs/lipids good- cont same care MORTEZA UMANA MD Aug 09, 2018 08:00
[2018-08-09] MEDS: AMIODARONE HCL 200 MG TABLET. PO SCH ×2 (10:23→20:35)
[2018-08-09] MEDS: METOPROLOL TART IMMED RELEASE 25 MG TABLET. PO SCH ×2 (10:24→20:37)
[2018-08-09] MEDS: IV RINGERS,LACTATED 1000ML 1,000 ML IV SCH (11:12)
--- NOTE | 2018-08-09 14:37 | PDOC ---
Progress Note Subjective Subjective Doing very well. Normotensive and in sinus rhythm. On room air. A-line and Grayson- Clemente have been removed. Minimal tube output. Good urine output. Chest x-ray looks great with expected postoperative findings. Hb 12.5, creat 1.2. On 4 units per hour of insulin in addition to Lantus. ROS ROS No nausea No vomiting No pain No rash Vital Sign Vital Signs Vital Signs Date Time Temp Pulse Resp B/P (MAP) Pulse Ox O2 Delivery O2 Flow Rate FiO2 08/09/18 14:00 84 16 113/59 (77) 96 Room Air 08/09/18 11:02 98.2 98.2 08/09/18 10:23 3.0 Physical Exam PHYSICAL EXAM GENERAL: NAD, Alert HEENT: PERRL, OC/OP NECK: Supple, no JVD, no LN LUNGS: Clear HEART: S1S2, no gallop, no murmur ABD: Soft, NT, no organomegaly, no rebound EXT: No edema, no cyanosis CARRY ALL DRIVER: Alert, oriented x 3, no focal neurologic deficit SKIN: No rash IV: ok Labs Lab Laboratory Tests Test 08/08/18 14:55 08/08/18 15:00 08/08/18 15:49 08/08/18 17:10 White Blood Count 17.2 x10^3/uL (4.0-11.0) Red Blood Count 4.60 x10^6/uL (4.30-5.70) Hemoglobin 13.6 g/dL (13.0-17.5) Hematocrit 40.0 % (39.0-53.0) Mean Corpuscular Volume 87 fL (79-100) Mean Corpuscular Hemoglobin 30 pg (25-35) Mean Corpuscular Hemoglobin Concent 34 g/dL (31-37) Red Cell Distribution Width 13.6 % (11.5-14.5) Platelet Count 187 x10^3/uL (140-400) Prothrombin Time 16.3 SEC (11.7-14.0) Prothromb Time International Ratio 1.3 (0.8-1.1) Activated Partial Thromboplast Time 28 SEC (24-38) Sodium Level 141 mmol/L (136-145) Potassium Level 4.3 mmol/L (3.5-5.1) Chloride Level 106 mmol/L (98-107) Carbon Dioxide Level 25 mmol/L (21-32) Anion Gap 10 (6-14) Blood Urea Nitrogen 13 mg/dL (8-26) Creatinine 1.2 mg/dL (0.7-1.3) Estimated GFR (Cockcroft-Gault) 59.9 Glucose Level 149 mg/dL (70-99) Glucose (Fingerstick) 138 mg/dL (70-99) 166 mg/dL (70-99) 153 mg/dL (70-99) Calcium Level 9.7 mg/dL (8.5-10.1) Magnesium Level 2.3 mg/dL (1.8-2.4) O2 Saturation 99 % (92-99) Arterial Blood pH 7.29 (7.35-7.45) Arterial Blood pCO2 at Patient Temp 48 mmHg (35-46) Arterial Blood pO2 at Patient Temp 145 mmHg (65-108) Arterial Blood HCO3 23 mmol/L (21-28) Arterial Blood Base Excess -4 mmol/L (-3-3) Oxyhemoglobin 97.2 % Methemoglobin 0.4 % (0.0-1.9) Carbon Monoxide, Quantitative 0.9 % (0.0-1.9) FiO2 80 Test 08/08/18 17:17 08/08/18 18:13 08/08/18 19:00 08/08/18 19:12 O2 Saturation 98 % (92-99) Arterial Blood pH 7.40 (7.35-7.45) Arterial Blood pCO2 at Patient Temp 33 mmHg (35-46) Arterial Blood pO2 at Patient Temp 113 mmHg (65-108) Arterial Blood HCO3 20 mmol/L (21-28) Arterial Blood Base Excess -4 mmol/L (-3-3) Glucose (Fingerstick) 160 mg/dL (70-99) 147 mg/dL (70-99) White Blood Count 11.7 x10^3/uL (4.0-11.0) Red Blood Count 4.03 x10^6/uL (4.30-5.70) Hemoglobin 11.9 g/dL (13.0-17.5) Hematocrit 35.1 % (39.0-53.0) Mean Corpuscular Volume 87 fL (79-100) Mean Corpuscular Hemoglobin 30 pg (25-35) Mean Corpuscular Hemoglobin Concent 34 g/dL (31-37) Red Cell Distribution Width 13.5 % (11.5-14.5) Platelet Count 181 x10^3/uL (140-400) Potassium Level 4.4 mmol/L (3.5-5.1) Test 08/08/18 20:07 08/08/18 21:10 08/08/18 22:03 08/08/18 23:34 Glucose (Fingerstick) 154 mg/dL (70-99) 165 mg/dL (70-99) 151 mg/dL (70-99) 136 mg/dL (70-99) Test 08/09/18 01:03 08/09/18 02:08 08/09/18 02:57 08/09/18 03:50 Glucose (Fingerstick) 138 mg/dL (70-99) 140 mg/dL (70-99) 150 mg/dL (70-99) White Blood Count 12.1 x10^3/uL (4.0-11.0) Red Blood Count 4.15 x10^6/uL (4.30-5.70) Hemoglobin 12.5 g/dL (13.0-17.5) Hematocrit 35.9 % (39.0-53.0) Mean Corpuscular Volume 87 fL (79-100) Mean Corpuscular Hemoglobin 30 pg (25-35) Mean Corpuscular Hemoglobin Concent 35 g/dL (31-37) Red Cell Distribution Width 13.6 % (11.5-14.5) Platelet Count 183 x10^3/uL (140-400) Sodium Level 135 mmol/L (136-145) Potassium Level 4.1 mmol/L (3.5-5.1) Chloride Level 103 mmol/L (98-107) Carbon Dioxide Level 22 mmol/L (21-32) Anion Gap 10 (6-14) Blood Urea Nitrogen 13 mg/dL (8-26) Creatinine 1.2 mg/dL (0.7-1.3) Estimated GFR (Cockcroft-Gault) 59.9 Glucose Level 161 mg/dL (70-99) Calcium Level 9.0 mg/dL (8.5-10.1) Magnesium Level 1.9 mg/dL (1.8-2.4) Test 08/09/18 05:32 12/14/18 06:24 08/09/18 08:23 08/09/18 09:20 Glucose (Fingerstick) 139 mg/dL (70-99) 136 mg/dL (70-99) 137 mg/dL (70-99) 142 mg/dL (70-99) Test 08/09/18 10:25 08/09/18 12:51 Glucose (Fingerstick) 153 mg/dL (70-99) 133 mg/dL (70-99) Objective Assessment POD#1, s/p CABG x 4 (PRADO to LAD, SVG to OM2, SVG to diag 1, SVG to RPDA) Doing very well. Normotensive and in sinus rhythm. On room air. A-line and Grayson- Clemente have been removed. Minimal tube output. Good urine output. Chest x-ray looks great with expected postoperative findings. Hb 12.5, creat 1.2. On 4 units per hour of insulin in addition to Lantus. Plan Plan of Care D/c mediastinal tubes Switch amiodarone drip to po for AFib prophylaxis ASA, b braxton and statin Ambulation and pulm toilet Increase Lantus to 30 units tonight. Will stop insulin drip tomorrow CHAPARRITA OCAMPO MD Aug 09, 2018 14:37
--- NOTE | 2018-08-09 15:33 | PDOC ---
PROGRESS NOTES Subjective Subjective s/p extubation, patient feeling well except for sternal incision pain Objective Objective Vital Signs Date Time Temp Pulse Resp B/P (MAP) Pulse Ox O2 Delivery O2 Flow Rate FiO2 08/09/18 15:15 16 96 Room Air 08/09/18 14:00 84 113/59 (77) 08/09/18 11:02 98.2 98.2 08/09/18 10:23 3.0 Intake and Output 08/09/18 07:00 Intake Total 3041 ml Output Total 2475 ml Balance 566 ml Intake Oral 990 ml IV Total 2051 ml Output Urine Total 1605 ml Chest Tube Drainage Total 870 ml Physical Exam Abdomen: Soft, No tenderness Heart: Regular rate, Normal S1, Normal S2, No murmurs Extremities: No edema General: Alert, Oriented X3, No acute distress HEENT: Atraumatic, PERRLA Lungs: Clear to auscultation MUSCULOSKELETAL: No deformity Neuro: Normal speech, Sensation intact Psych/Mental Status: Mental status NL Assessment Assessment 1. Non-STEMI/three-vessel coronary artery disease: s/p CABG, progressing well. Telemetry did not show any significant arrhythmias. Continue postop care per CT surgery. Continue current medications including beta blockers. 2. Hypertension: Controlled 3. Hyperlipidemia: Statins 4. Diabetes mellitus type 2: Treat per IM Plan Plan of Care Problems Medical Problems: (1) Chest pain Status: Acute (2) Non-STEMI (non-ST elevated myocardial infarction) Status: Acute Comment Review of Relevant I have reviewed the following items denise (where applicable) has been applied. Labs Laboratory Tests Test 08/08/18 15:49 08/08/18 17:10 08/08/18 17:17 08/08/18 18:13 Glucose (Fingerstick) 166 mg/dL (70-99) 153 mg/dL (70-99) 160 mg/dL (70-99) O2 Saturation 98 % (92-99) Arterial Blood pH 7.40 (7.35-7.45) Arterial Blood pCO2 at Patient Temp 33 mmHg (35-46) Arterial Blood pO2 at Patient Temp 113 mmHg (65-108) Arterial Blood HCO3 20 mmol/L (21-28) Arterial Blood Base Excess -4 mmol/L (-3-3) Test 08/08/18 19:00 08/08/18 19:12 08/08/18 20:07 12/13/18 21:10 White Blood Count 11.7 x10^3/uL (4.0-11.0) Red Blood Count 4.03 x10^6/uL (4.30-5.70) Hemoglobin 11.9 g/dL (13.0-17.5) Hematocrit 35.1 % (39.0-53.0) Mean Corpuscular Volume 87 fL (79-100) Mean Corpuscular Hemoglobin 30 pg (25-35) Mean Corpuscular Hemoglobin Concent 34 g/dL (31-37) Red Cell Distribution Width 13.5 % (11.5-14.5) Platelet Count 181 x10^3/uL (140-400) Potassium Level 4.4 mmol/L (3.5-5.1) Glucose (Fingerstick) 147 mg/dL (70-99) 154 mg/dL (70-99) 165 mg/dL (70-99) Test 08/08/18 22:03 08/08/18 23:34 08/09/18 01:03 08/09/18 02:08 Glucose (Fingerstick) 151 mg/dL (70-99) 136 mg/dL (70-99) 138 mg/dL (70-99) 140 mg/dL (70-99) Test 08/09/18 02:57 08/09/18 03:50 08/09/18 05:32 08/09/18 06:24 Glucose (Fingerstick) 150 mg/dL (70-99) 139 mg/dL (70-99) 136 mg/dL (70-99) White Blood Count 12.1 x10^3/uL (4.0-11.0) Red Blood Count 4.15 x10^6/uL (4.30-5.70) Hemoglobin 12.5 g/dL (13.0-17.5) Hematocrit 35.9 % (39.0-53.0) Mean Corpuscular Volume 87 fL (79-100) Mean Corpuscular Hemoglobin 30 pg (25-35) Mean Corpuscular Hemoglobin Concent 35 g/dL (31-37) Red Cell Distribution Width 13.6 % (11.5-14.5) Platelet Count 183 x10^3/uL (140-400) Sodium Level 135 mmol/L (136-145) Potassium Level 4.1 mmol/L (3.5-5.1) Chloride Level 103 mmol/L (98-107) Carbon Dioxide Level 22 mmol/L (21-32) Anion Gap 10 (6-14) Blood Urea Nitrogen 13 mg/dL (8-26) Creatinine 1.2 mg/dL (0.7-1.3) Estimated GFR (Cockcroft-Gault) 59.9 Glucose Level 161 mg/dL (70-99) Calcium Level 9.0 mg/dL (8.5-10.1) Magnesium Level 1.9 mg/dL (1.8-2.4) Test 08/09/18 08:23 08/09/18 09:20 08/09/18 10:25 08/09/18 12:51 Glucose (Fingerstick) 137 mg/dL (70-99) 142 mg/dL (70-99) 153 mg/dL (70-99) 133 mg/dL (70-99) Test 08/09/18 14:52 Glucose (Fingerstick) 180 mg/dL (70-99) Medications Current Medications Amiodarone HCl (Cordarone) 400 mg BID PO Last administered on 08/09/18at 10:23 ; Start 08/09/18 at 10:15 Aspirin (Ecotrin) 325 mg [id number] PO Last administered on 08/09/18at 07:54; Start 08/09/18 at 08:00 Cefazolin Sodium/ Dextrose 50 ml @ 100 mls/hr Q8H IV Last administered on at 11:12; Start 08/08/18 at 20:00; Stop 08/10/18 at 04:29 Chlorhexidine Gluconate (Peridex) 15 ml BID MM ; Start 08/08/18 at 21:00; Stop 08/09/18 at 07:25; Status DC Famotidine (Pepcid Vial) 20 mg BID IVP Last administered on 08/08/18at 21:08; Start 08/08/18 at 21:00; Stop 08/09/18 at 07:25; Status DC Furosemide (Lasix) 20 mg 1X ONCE IVP Last administered on 08/09/18at 02:53; Start 08/09/18 at 03:00; Stop 08/09/18 at 03:01; Status DC Insulin Glargine (Lantus) 20 units QHS SQ Last administered on 08/08/18at 21:32 ; Start 08/08/18 at 21:00; Stop 08/09/18 at 14:38; Status DC Insulin Glargine (Lantus) 30 units QHS SQ ; Start 08/09/18 at 21:00 Oxycodone HCl (Roxicodone) 10 mg PRN Q4HRS PRN PO PAIN SEVERE Last administered on 08/09/18at 15:15; Start 08/09/18 at 10:15 Potassium Chloride/Water 50 ml @ 50 mls/hr 1X ONCE IV Last administered on at 16:45; Start 08/08/18 at 16:15; Stop 08/08/18 at 17:14; Status DC Potassium Chloride/Water 50 ml @ 50 mls/hr 1X ONCE IV Last administered on at 21:24; Start 08/08/18 at 21:15; Stop 08/08/18 at 22:14; Status DC Vitals/I & O Vital Sign - Last 24 Hours 08/08/18 08/08/18 08/08/18 08/08/18 16:00 16:39 17:00 17:10 Resp 16 16 Pulse Ox 100 95 O2 Delivery Mechanical Ventilator Ventilator Mechanical Ventilator 08/08/18 08/08/18 08/08/18 08/08/18 18:00 19:00 19:13 20:00 Temp 100.4 100.3 100.4 100.3 Pulse 87 90 Resp 15 15 16 B/P (MAP) 108/50 (69) 105/45 (65) Pulse Ox 97 96 98 O2 Delivery Nasal Cannula Nasal Cannula Nasal Cannula Nasal Cannula O2 Flow Rate 3.0 3.0 3.0 3.0 08/08/18 08/08/18 08/08/18 08/08/18 20:00 21:00 21:00 22:00 Temp 100.4 100.4 100.4 100.4 Pulse 87 95 Resp 22 17 B/P (MAP) 103/49 100/46 (64) 107/51 (69) Pulse Ox 98 98 O2 Delivery Nasal Cannula Nasal Cannula Nasal Cannula O2 Flow Rate 3.0 3.0 3.0 08/08/18 08/08/18 08/08/18/13/18 22:39 22:39 22:59 23:00 Temp 100.2 100.2 Pulse 91 92 Resp 18 17 B/P (MAP) 125/53 119/57 (77) 119/66 (83) Pulse Ox 97 98 O2 Delivery Nasal Cannula BiPAP/CPAP O2 Flow Rate 08/09/18 08/09/18 08/09/18 08/09/18 00:00 00:00 01:00 01:15 Temp 100.0 100.0 100.0 100.0 Pulse 88 84 Resp 11 12 12 B/P (MAP) 127/58 (81) 125/45 (71) Pulse Ox 98 96 97 O2 Delivery Bi-pap BiPAP/CPAP BiPAP/CPAP BiPAP/CPAP O2 Flow Rate 08/09/18 08/09/18 08/09/18 08/09/18 02:00 03:00 04:00 04:00 Temp 98.4 98.4 Pulse 84 80 82 Resp 19 15 22 B/P (MAP) 115/53 (73) 115/63 (80) 123/70 (87) Pulse Ox 96 96 94 O2 Delivery BiPAP/CPAP BiPAP/CPAP BiPAP/CPAP Bi-pap 08/09/18 08/09/18 08/09/18 08/09/18 05:00 06:00 07:00 08:00 Temp 98.3 98.3 Pulse 79 75 77 84 Resp 18 16 18 18 B/P (MAP) 119/68 (85) 126/65 (85) 147/74 (98) 132/60 (84) Pulse Ox 94 96 98 95 O2 Delivery BiPAP/CPAP BiPAP/CPAP Room Air Room Air 08/09/18 08/09/18 08/09/18 08/09/18 08:00 09:00 09:26 10:00 Pulse 84 85 Resp 16 16 16 B/P (MAP) 109/60 (76) 118/84 (95) Pulse Ox 96 95 96 O2 Delivery Room Air Room Air Room Air Room Air 08/09/18 08/09/18 08/09/18 08/09/18 10:23 10:23 10:24 11:02 Temp 98.2 98.2 Pulse 85 85 80 Resp 16 16 B/P (MAP) 118/84 118/84 121/61 (81) Pulse Ox 96 94 O2 Delivery Room Air Room Air O2 Flow Rate 3.0 08/09/18 08/09/18 08/09/18 08/09/18 11:13 12:00 12:00 13:00 Pulse 86 89 Resp 16 18 16 B/P (MAP) 118/62 (80) 115/59 (77) Pulse Ox 95 94 94 O2 Delivery Room Air Room Air Room Air Room Air 08/09/18 08/09/18 14:00 15:15 Pulse 84 Resp 16 16 B/P (MAP) 113/59 (77) Pulse Ox 96 96 O2 Delivery Room Air Room Air Intake and Output 08/08/18 08/08/18 08/09/18 15:00 23:00 07:00 Intake Total 1564 ml 1477 ml Output Total 1322 ml 1153 ml Balance 242 ml 324 ml LINH CHING MD Aug 09, 2018 15:33
[2018-08-09] MEDS: INSULIN REGULAR VIAL 150 UNIT in 0.9 % SODIUM CHLORIDE 150ML 150 ML IV PRN (16:50)
[2018-08-09] MEDS: DOXAZOSIN MESYLATE 4 MG TABLET. PO SCH (20:34)
[2018-08-09] MEDS: ATORVASTATIN CALCIUM 40 MG TABLET. PO SCH (20:35)
[2018-08-09] MEDS: INSULIN GLARGINE 300 UNITS/3 ML INSULN.PEN. SQ SCH (21:09)
[2018-08-10] VITALS (19 sets, daily range): BP systolic 100–179; BP diastolic 58–105
[2018-08-10] MEDS: oxyCODONE IR 5 MG TABLET PO PRN ×3 (01:26→17:57)
[2018-08-10] MEDS: ACETAMINOPHEN 325 MG TABLET. PO PRN (04:22)
[2018-08-10] MEDS: MORPHINE SULFATE 2 MG/ML VIAL. IV PRN (04:22)
[2018-08-10 06:01] LABS: HEMATOCRIT 36.1 % (39.0-53.0); HEMOGLOBIN 12.2 g/dL (13.0-17.5); RED BLOOD COUNT 4.11 x10^6/uL (4.30-5.70); RED CELL DISTRIBUTION WIDTH 13.8 % (11.5-14.5); WHITE BLOOD COUNT 13.3 x10^3/uL (4.0-11.0)
[2018-08-10 06:10] LABS: CALCIUM 8.7 mg/dL (8.5-10.1); CREATININE 1.1 mg/dL (0.7-1.3); GFR 66.2; MAGNESIUM 1.7 mg/dL (1.8-2.4); POTASSIUM 3.8 mmol/L (3.5-5.1)
--- NOTE | 2018-08-10 08:08 | RAD ---
Chest radiograph 08/10/2018 7:00 AM INDICATION: Postoperative COMPARISON: August 09, 2018 TECHNIQUE: Portable upright frontal view of the chest is provided. FINDINGS: The cardiomediastinal silhouette is enlarged with increased prominence since the prior examination. No significant pleural effusions. Mild pulmonary vascular congestion. No pneumothorax. Median sternotomy changes are present. Right IJ sheath is identified. Thoracostomy tube is identified at the left lung base. IMPRESSION: There is increased prominence of the cardiac mediastinal silhouette which may be projectional. Consideration may be given for pericardial effusion in the appropriate clinical setting. Electronically signed by: Raeann Olson MD (08/10/2018 8:05 AM) [facility]
[2018-08-10] MEDS: SERTRALINE 50 MG TABLET. PO SCH (08:27)
[2018-08-10] MEDS: ASPIRIN ENTERIC COATED 325 MG TABLET.DR. PO SCH (08:28)
[2018-08-10] MEDS: hydroCHLOROthiazide 12.5 MG CAPSULE PO SCH (08:28)
[2018-08-10] MEDS: AMIODARONE HCL 200 MG TABLET. PO SCH ×2 (08:28→20:56)
[2018-08-10] MEDS: PANTOPRAZOLE 40 MG TABLET.DR. PO SCH (08:28)
[2018-08-10] MEDS: CETIRIZINE HCL 10 MG TABLET. PO SCH (08:29)
--- NOTE | 2018-08-10 11:41 | PDOC ---
PROGRESS NOTES Subjective Subjective Patient seen and examined He is in a chair and feeling better. Objective Objective Vital Signs Date Time Temp Pulse Resp B/P (MAP) Pulse Ox O2 Delivery O2 Flow Rate FiO2 08/10/18 10:00 90 22 121/65 (83) 93 Room Air 08/10/18 07:00 98.3 98.3 08/09/18 10:23 3.0 Intake and Output 08/10/18 07:00 Intake Total 1722 ml Output Total 1387 ml Balance 335 ml Intake Oral 570 ml IV Total 1152 ml Output Urine Total 1221 ml Chest Tube Drainage Total 166 ml Physical Exam Abdomen: Normal bowel sounds Heart: Regular rate General: mild distress Lungs: Clear to auscultation Assessment Assessment Problems Medical Problems: (1) Chest pain Status: Acute (2) Non-STEMI (non-ST elevated myocardial infarction) Status: Acute 1. Non-STEMI/three-vessel coronary artery disease: s/p CABG, doing well. No significant arrhythmias. Continue postop care per CT surgery. Continue current medications including beta blockers. Increasing activity. 2. Hypertension: Controlled 3. Hyperlipidemia: Statins 4. Diabetes mellitus type 2: Treat per IM Comment Review of Relevant I have reviewed the following items denise (where applicable) has been applied. Labs Laboratory Tests Test 08/08/18 11:58 08/08/18 12:00 08/08/18 12:29 08/08/18 12:59 Activated Clotting Time 465 SEC (90-125) 530 SEC (90-125) > 1001 SEC (90-125) Bedside Hemoglobin (Calculated) 12.2 g/dL (14-18) 11.2 g/dL (14-18) Bedside Hematocrit 36 % (37-52) 33 % (37-52) Bedside Arterial pH 7.31 (7.35-7.45) 7.33 (7.35-7.45) Bedside Arterial pCO2 48 mmHg (35-45) 47 mmHg (35-45) Bedside Arterial pO2 286 mmHg (75-100) 344 mmHg (75-100) Bedside Arterial HCO3 24 mmol/L (21-28) 25 mmol/L (21-28) Bedside Arterial Total CO2 26 mmol/L (21-32) 26 mmol/L (21-32) Arterial Bld O2 Saturation (Measur) 100 % (95-99) 100 % (95-99) Bedside Arterial Blood Base Excess -2 mmol/L (0-3) -1 mmol/L (0-3) Bedside FiO2 80.0 90.0 Bedside Sodium 139 mmol/L (135-145) 138 mmol/L (135-145) Bedside Potassium 3.8 mmol/L (3.5-5.0) 4.5 mmol/L (3.5-5.0) Glucose Level 178 mg/dL (70-99) 171 mg/dL (70-99) Bedside Ionized Calcium (Rj) 1.20 mmol/L (1.13-1.32) 1.18 mmol/L (1.13-1.32) Test 08/08/18 13:29 08/08/18 13:40 08/08/18 13:49 08/08/18 13:58 Activated Clotting Time 496 SEC (90-125) 145 SEC (90-125) White Blood Count 12.9 x10^3/uL (4.0-11.0) Hemoglobin 11.8 g/dL (13.0-17.5) Hematocrit 34.5 % (39.0-53.0) Platelet Count 164 x10^3/uL (140-400) Prothrombin Time 17.1 SEC (11.7-14.0) Prothromb Time International Ratio 1.4 (0.8-1.1) Activated Partial Thromboplast Time 29 SEC (24-38) Fibrinogen 274 mg/dL (200-440) Bedside Hemoglobin (Calculated) 11.2 g/dL (14-18) Bedside Hematocrit 33 % (37-52) Bedside Arterial pH 7.42 (7.35-7.45) Bedside Arterial pCO2 36 mmHg (35-45) Bedside Arterial pO2 261 mmHg (75-100) Bedside Arterial HCO3 24 mmol/L (21-28) Bedside Arterial Total CO2 25 mmol/L (21-32) Arterial Bld O2 Saturation (Measur) 100 % (95-99) Bedside Arterial Blood Base Excess -1 mmol/L (0-3) Bedside FiO2 100.0 Bedside Sodium 141 mmol/L (135-145) Bedside Potassium 3.8 mmol/L (3.5-5.0) Glucose Level 130 mg/dL (70-99) Bedside Ionized Calcium (Rj) 1.41 mmol/L (1.13-1.32) Test 08/08/18 14:55 08/08/18 15:00 12/13/18 15:49 08/08/18 17:10 White Blood Count 17.2 x10^3/uL (4.0-11.0) Red Blood Count 4.60 x10^6/uL (4.30-5.70) Hemoglobin 13.6 g/dL (13.0-17.5) Hematocrit 40.0 % (39.0-53.0) Mean Corpuscular Volume 87 fL (79-100) Mean Corpuscular Hemoglobin 30 pg (25-35) Mean Corpuscular Hemoglobin Concent 34 g/dL (31-37) Red Cell Distribution Width 13.6 % (11.5-14.5) Platelet Count 187 x10^3/uL (140-400) Prothrombin Time 16.3 SEC (11.7-14.0) Prothromb Time International Ratio 1.3 (0.8-1.1) Activated Partial Thromboplast Time 28 SEC (24-38) Sodium Level 141 mmol/L (136-145) Potassium Level 4.3 mmol/L (3.5-5.1) Chloride Level 106 mmol/L (98-107) Carbon Dioxide Level 25 mmol/L (21-32) Anion Gap 10 (6-14) Blood Urea Nitrogen 13 mg/dL (8-26) Creatinine 1.2 mg/dL (0.7-1.3) Estimated GFR (Cockcroft-Gault) 59.9 Glucose Level 149 mg/dL (70-99) Glucose (Fingerstick) 138 mg/dL (70-99) 166 mg/dL (70-99) 153 mg/dL (70-99) Calcium Level 9.7 mg/dL (8.5-10.1) Magnesium Level 2.3 mg/dL (1.8-2.4) O2 Saturation 99 % (92-99) Arterial Blood pH 7.29 (7.35-7.45) Arterial Blood pCO2 at Patient Temp 48 mmHg (35-46) Arterial Blood pO2 at Patient Temp 145 mmHg (65-108) Arterial Blood HCO3 23 mmol/L (21-28) Arterial Blood Base Excess -4 mmol/L (-3-3) Oxyhemoglobin 97.2 % Methemoglobin 0.4 % (0.0-1.9) Carbon Monoxide, Quantitative 0.9 % (0.0-1.9) FiO2 80 Test 08/08/18 17:17 08/08/18 18:13 08/08/18 19:00 08/08/18 19:12 O2 Saturation 98 % (92-99) Arterial Blood pH 7.40 (7.35-7.45) Arterial Blood pCO2 at Patient Temp 33 mmHg (35-46) Arterial Blood pO2 at Patient Temp 113 mmHg (65-108) Arterial Blood HCO3 20 mmol/L (21-28) Arterial Blood Base Excess -4 mmol/L (-3-3) Glucose (Fingerstick) 160 mg/dL (70-99) 147 mg/dL (70-99) White Blood Count 11.7 x10^3/uL (4.0-11.0) Red Blood Count 4.03 x10^6/uL (4.30-5.70) Hemoglobin 11.9 g/dL (13.0-17.5) Hematocrit 35.1 % (39.0-53.0) Mean Corpuscular Volume 87 fL (79-100) Mean Corpuscular Hemoglobin 30 pg (25-35) Mean Corpuscular Hemoglobin Concent 34 g/dL (31-37) Red Cell Distribution Width 13.5 % (11.5-14.5) Platelet Count 181 x10^3/uL (140-400) Potassium Level 4.4 mmol/L (3.5-5.1) Test 08/08/18 20:07 08/08/18 21:10 08/08/18 22:03 08/08/18 23:34 Glucose (Fingerstick) 154 mg/dL (70-99) 165 mg/dL (70-99) 151 mg/dL (70-99) 136 mg/dL (70-99) Test 08/09/18 01:03 08/09/18 02:08 08/09/18 02:57 08/09/18 03:50 Glucose (Fingerstick) 138 mg/dL (70-99) 140 mg/dL (70-99) 150 mg/dL (70-99) White Blood Count 12.1 x10^3/uL (4.0-11.0) Red Blood Count 4.15 x10^6/uL (4.30-5.70) Hemoglobin 12.5 g/dL (13.0-17.5) Hematocrit 35.9 % (39.0-53.0) Mean Corpuscular Volume 87 fL (79-100) Mean Corpuscular Hemoglobin 30 pg (25-35) Mean Corpuscular Hemoglobin Concent 35 g/dL (31-37) Red Cell Distribution Width 13.6 % (11.5-14.5) Platelet Count 183 x10^3/uL (140-400) Sodium Level 135 mmol/L (136-145) Potassium Level 4.1 mmol/L (3.5-5.1) Chloride Level 103 mmol/L (98-107) Carbon Dioxide Level 22 mmol/L (21-32) Anion Gap 10 (6-14) Blood Urea Nitrogen 13 mg/dL (8-26) Creatinine 1.2 mg/dL (0.7-1.3) Estimated GFR (Cockcroft-Gault) 59.9 Glucose Level 161 mg/dL (70-99) Calcium Level 9.0 mg/dL (8.5-10.1) Magnesium Level 1.9 mg/dL (1.8-2.4) Test 08/09/18 05:32 08/09/18 06:24 08/09/18 08:23 08/09/18 09:20 Glucose (Fingerstick) 139 mg/dL (70-99) 136 mg/dL (70-99) 137 mg/dL (70-99) 142 mg/dL (70-99) Test 08/09/18 10:25 08/09/18 12:51 08/09/18 14:52 08/09/18 15:59 Glucose (Fingerstick) 153 mg/dL (70-99) 133 mg/dL (70-99) 180 mg/dL (70-99) 155 mg/dL (70-99) Test 08/09/18 17:40 08/09/18 18:47 08/09/18 20:04 08/09/18 21:06 Glucose (Fingerstick) 123 mg/dL (70-99) 126 mg/dL (70-99) 136 mg/dL (70-99) 121 mg/dL (70-99) Test 08/09/18 22:09 08/09/18 23:14 08/10/18 00:17 08/10/18 01:23 Glucose (Fingerstick) 117 mg/dL (70-99) 138 mg/dL (70-99) 143 mg/dL (70-99) 143 mg/dL (70-99) Test 08/10/18 02:25 08/10/18 03:16 08/10/18 04:28 08/10/18 05:31 Glucose (Fingerstick) 148 mg/dL (70-99) 124 mg/dL (70-99) 146 mg/dL (70-99) 147 mg/dL (70-99) Test 08/10/18 05:44 08/10/18 06:35 08/10/18 08:37 White Blood Count 13.3 x10^3/uL (4.0-11.0) Red Blood Count 4.11 x10^6/uL (4.30-5.70) Hemoglobin 12.2 g/dL (13.0-17.5) Hematocrit 36.1 % (39.0-53.0) Mean Corpuscular Volume 88 fL (79-100) Mean Corpuscular Hemoglobin 30 pg (25-35) Mean Corpuscular Hemoglobin Concent 34 g/dL (31-37) Red Cell Distribution Width 13.8 % (11.5-14.5) Platelet Count 180 x10^3/uL (140-400) Sodium Level 136 mmol/L (136-145) Potassium Level 3.8 mmol/L (3.5-5.1) Chloride Level 101 mmol/L (98-107) Carbon Dioxide Level 27 mmol/L (21-32) Anion Gap 8 (6-14) Blood Urea Nitrogen 10 mg/dL (8-26) Creatinine 1.1 mg/dL (0.7-1.3) Estimated GFR (Cockcroft-Gault) 66.2 Glucose Level 157 mg/dL (70-99) Calcium Level 8.7 mg/dL (8.5-10.1) Magnesium Level 1.7 mg/dL (1.8-2.4) Glucose (Fingerstick) 142 mg/dL (70-99) 157 mg/dL (70-99) Laboratory Tests Test 08/09/18 12:51 08/09/18 14:52 08/09/18 15:59 08/09/18 17:40 Glucose (Fingerstick) 133 mg/dL (70-99) 180 mg/dL (70-99) 155 mg/dL (70-99) 123 mg/dL (70-99) Test 08/09/18 18:47 08/09/18 20:04 08/09/18 21:06 08/09/18 22:09 Glucose (Fingerstick) 126 mg/dL (70-99) 136 mg/dL (70-99) 121 mg/dL (70-99) 117 mg/dL (70-99) Test 08/09/18 23:14 08/10/18 00:17 08/10/18 01:23 08/10/18 02:25 Glucose (Fingerstick) 138 mg/dL (70-99) 143 mg/dL (70-99) 143 mg/dL (70-99) 148 mg/dL (70-99) Test 08/10/18 03:16 08/10/18 04:28 08/10/18 05:31 08/10/18 05:44 Glucose (Fingerstick) 124 mg/dL (70-99) 146 mg/dL (70-99) 147 mg/dL (70-99) White Blood Count 13.3 x10^3/uL (4.0-11.0) Red Blood Count 4.11 x10^6/uL (4.30-5.70) Hemoglobin 12.2 g/dL (13.0-17.5) Hematocrit 36.1 % (39.0-53.0) Mean Corpuscular Volume 88 fL (79-100) Mean Corpuscular Hemoglobin 30 pg (25-35) Mean Corpuscular Hemoglobin Concent 34 g/dL (31-37) Red Cell Distribution Width 13.8 % (11.5-14.5) Platelet Count 180 x10^3/uL (140-400) Sodium Level 136 mmol/L (136-145) Potassium Level 3.8 mmol/L (3.5-5.1) Chloride Level 101 mmol/L (98-107) Carbon Dioxide Level 27 mmol/L (21-32) Anion Gap 8 (6-14) Blood Urea Nitrogen 10 mg/dL (8-26) Creatinine 1.1 mg/dL (0.7-1.3) Estimated GFR (Cockcroft-Gault) 66.2 Glucose Level 157 mg/dL (70-99) Calcium Level 8.7 mg/dL (8.5-10.1) Magnesium Level 1.7 mg/dL (1.8-2.4) Test 08/10/18 06:35 08/10/18 08:37 Glucose (Fingerstick) 142 mg/dL (70-99) 157 mg/dL (70-99) Medications Current Medications Nitroglycerin (Nitrostat) 0.4 mg PRN Q5MIN PRN SL CP RATING > 1/10; Start 06/13 at 17:30; Stop 08/05/18 at 20:59; Status DC Acetaminophen (Tylenol) 1,000 mg 1X ONCE PO ; Start 08/05/18 at 17:45; Stop 08/05/18 at 17:46; Status DC Heparin Sodium/ Dextrose 500 ml @ 20 mls/hr CONT PRN IV SEE I/O RECORD Last administered on 08/05/18at 20:16; Start 08/05/18 at 20:00; Stop 08/07/18 at 15 :01; Status DC Heparin Sodium (Porcine) (Heparin Sodium) 2,850 unit PRN Q6HRS PRN IV FOR UFH LEVEL LESS THAN 0.2 Last administered on 08/05/18at 20:14; Start 08/05/18 at 20 :00; Stop 08/07/18 at 15:01; Status DC Ondansetron HCl (Zofran) 4 mg PRN Q8HRS PRN IV NAUSEA/VOMITING 1ST CHOICE; Start 08/05/18 at 21:00; Stop 08/06/18 at 20:59; Status DC Morphine Sulfate (Morphine Sulfate) 4 mg PRN Q2HR PRN IV SEVERE PAIN; Start at 21:00; Stop 08/06/18 at 20:59; Status DC Acetaminophen (Tylenol) 650 mg PRN Q4HRS PRN PO FEVER; Start 08/05/18 at 21:00 ; Stop 08/06/18 at 20:59; Status DC Nitroglycerin (Nitrostat) 0.4 mg PRN Q5MIN PRN SL CHEST PAIN; Start 08/05/18 at 21:00; Stop 08/06/18 at 20:59; Status DC Cetirizine HCl (ZyrTEC) 10 mg DAILY PO Last administered on 08/10/18at 08:29; Start 08/06/18 at 09:00 Doxazosin Mesylate (Cardura) 4 mg HS PO Last administered on 08/09/18at 20:34; Start 08/05/18 at 23:00 Simvastatin (Zocor) 10 mg HS PO Last administered on 08/05/18at 23:12; Start 08/05/18 at 23:00; Stop 08/06/18 at 08:57; Status DC Losartan Potassium (Cozaar) 50 mg DAILY PO Last administered on 08/06/18at 09: 17; Start 08/06/18 at 09:00; Stop 08/06/18 at 17:17; Status DC Metformin HCl (Glucophage) 1,000 mg DAILYWBKFT PO ; Start 08/06/18 at 08:00; Stop 08/06/18 at 08:56; Status DC Metformin HCl (Glucophage) 500 mg DAILYWSUP PO ; Start 08/06/18 at 17:00; Stop 08/06/18 at 17:00; Status DC Famotidine (Pepcid) 20 mg BID PO Last administered on 08/07/18at 20:50; Start 08/06/18 at 09:00; Stop 08/09/18 at 07:25; Status DC Sertraline HCl (Zoloft) 100 mg DAILY PO Last administered on 08/10/18at 08:27; Start 08/06/18 at 09:00 Hydrochlorothiazide (Microzide) 12.5 mg DAILY PO Last administered on at 08:28; Start 08/06/18 at 09:00 Atorvastatin Calcium (Lipitor) 40 mg QHS PO Last administered on 08/09/18at 20: 35; Start 08/06/18 at 21:00 Aspirin (Ecotrin) 81 mg DAILYWBKFT PO Last administered on 08/07/18at 08:06; Start 08/06/18 at 09:00; Stop 08/09/18 at 07:25; Status DC Potassium Chloride (Klor-Con) 40 meq 1X ONCE PO Last administered on at 15:58; Start 08/06/18 at 14:00; Stop 08/06/18 at 14:01; Status DC Fentanyl Citrate (Fentanyl 2ml Vial) 100 mcg STK-MED ONCE .ROUTE ; Start at 14:30; Stop 08/06/18 at 14:32; Status DC Midazolam HCl (Versed) 2 mg STK-MED ONCE .ROUTE ; Start 08/06/18 at 14:31; Stop 08/06/18 at 14:32; Status DC Verapamil HCl (Verapamil) 5 mg STK-MED ONCE .ROUTE ; Start 08/06/18 at 14:31; Stop 08/06/18 at 14:32; Status DC Heparin Sodium (Porcine) (Heparin Sodium) 10,000 unit STK-MED ONCE .ROUTE ; Start 08/06/18 at 14:31; Stop 08/06/18 at 14:32; Status DC Nitroglycerin (Nitroglycerin) 200 mcg STK-MED ONCE .ROUTE ; Start 08/06/18 at 14:31; Stop 08/06/18 at 14:32; Status DC Lidocaine HCl (Xylocaine-Mpf 1% 2ml Vial) 2 ml STK-MED ONCE .ROUTE ; Start 07/14 at 14:31; Stop 08/06/18 at 14:32; Status DC Heparin Sodium/ Sodium Chloride 500 ml @ As Directed STK-MED ONCE .ROUTE ; Start 08/06/18 at 14:31; Stop 08/06/18 at 14:32; Status DC Iodixanol (Visipaque 320) 100 ml STK-MED ONCE .ROUTE ; Start 08/06/18 at 14:57 ; Stop 08/06/18 at 14:58; Status DC Bivalirudin (Angiomax) 250 mg STK-MED ONCE IV ; Start 08/06/18 at 15:01; Stop 08/06/18 at 15:02; Status DC Nitroglycerin (Nitroglycerin) 200 mcg 1X ONCE IART Last administered on at 15:30; Start 08/06/18 at 15:30; Stop 08/06/18 at 15:39; Status DC Verapamil HCl (Verapamil) 2.5 mg 1X ONCE IART Last administered on 08/06/18at 15:35; Start 08/06/18 at 15:30; Stop 08/06/18 at 15:39; Status DC Heparin Sodium (Porcine) (Heparin Sodium) 2,500 unit 1X ONCE IART Last administered on 08/06/18at 15:36; Start 08/06/18 at 15:30; Stop 08/06/18 at 15 :39; Status DC Heparin Sodium/ Sodium Chloride (HEPARIN for ARTERIAL LINE FLUSH) 1,000 unit 1X ONCE IART Last administered on 08/06/18at 15:36; Start 08/06/18 at 15:30; Stop 08/06/18 at 15:39; Status DC Midazolam HCl (Versed) 2 mg 1X ONCE IV Last administered on 08/06/18at 15:35; Start 08/06/18 at 15:30; Stop 08/06/18 at 15:39; Status DC Fentanyl Citrate (Fentanyl 2ml Vial) 50 mcg 1X ONCE IV Last administered on at 15:34; Start 08/06/18 at 15:30; Stop 08/06/18 at 15:39; Status DC Iodixanol (Visipaque 320) 172 ml 1X ONCE IART Last administered on 08/06/18at 15:33; Start 08/06/18 at 15:30; Stop 08/06/18 at 15:39; Status DC Bivalirudin (Angiomax) 250 mg 1X ONCE IV Last administered on 08/06/18at 15:33 ; Start 08/06/18 at 15:30; Stop 08/06/18 at 15:39; Status DC Lidocaine HCl (Xylocaine-Mpf 1% 2ml Vial) 1 ml 1X ONCE INJ Last administered on 08/06/18at 15:35; Start 08/06/18 at 15:30; Stop 08/06/18 at 15:39; Status DC Nitroglycerin (Nitrostat) 0.4 mg PRN Q5MIN PRN SL CHEST PAIN Last administered on 08/07/18at 10:19; Start 08/06/18 at 15:30 Metoprolol Tartrate (Lopressor) 12.5 mg BID PO Last administered on 08/09/18at 20:37; Start 08/06/18 at 21:00 Zolpidem Tartrate (Ambien) 5 mg PRN QHS PRN PO INSOMNIA, MAY REPEAT IN 1HR; Start 08/06/18 at 22:15 Alprazolam (Xanax) 0.5 mg PRN Q6HRS PRN PO ANXIETY / AGITATION Last administered on 08/09/18at 22:11; Start 08/06/18 at 22:15 Acetaminophen (Tylenol) 650 mg PRN Q6HRS PRN PO MILD PAIN Last administered on 08/06/18at 22:51; Start 08/06/18 at 22:15; Stop 08/07/18 at 12:39; Status DC Nitroglycerin (Nitro-Bid Oint) 0.25 inch Q6HRS TP Last administered on at 20:49; Start 08/07/18 at 12:45; Stop 08/08/18 at 16:10; Status DC Acetaminophen (Tylenol) 650 mg PRN Q6HRS PRN PO MILD PAIN Last administered on 08/07/18at 20:50; Start 08/07/18 at 12:45; Stop 08/09/18 at 10:21; Status DC Insulin Human Lispro (HumaLOG) 5 units 1X ONCE SQ Last administered on at 14:10; Start 08/07/18 at 13:45; Stop 08/07/18 at 13:46; Status DC Insulin Glargine (Lantus) 10 units QHS SQ Last administered on 08/07/18at 20:58 ; Start 08/07/18 at 21:00; Stop 08/08/18 at 07:40; Status DC Cefazolin Sodium/ Dextrose 50 ml @ 100 mls/hr 1X ONCE IV Last administered on 08/08/18at 06:00; Start 08/08/18 at 06:00; Stop 08/08/18 at 06:29; Status DC Pantoprazole Sodium (Protonix) 40 mg DAILYAC PO Last administered on at 08:28; Start 08/07/18 at 18:30 Heparin Sodium (Porcine) 92981 unit/Ringer's Solution 1,020 ml @ 1,020 mls/hr 1X PERIOP@0600 ONCE IRR Last administered on 08/08/18at 08:46; Start at 06:00; Stop 08/08/18 at 06:59; Status DC Potassium Chloride 70 meq/ Sodium Bicarbonate 12.5 meq/Lidocaine HCl 24 ml/ Parenteral Electrolytes 571.5 ml @ 571.5 mls/ hr 1X PERIOP@0600 ONCE IRR Last administered on 08/08/18at 10:46; Start 08/08/18 at 06:00; Stop 08/08/18 at 06:59; Status DC Potassium Chloride 15 meq/ Sodium Bicarbonate 12.5 meq/Parenteral Electrolytes 520 ml @ 520 mls/hr 1X PERIOP@0600 ONCE IRR ; Start 08/08/18 at 06:00; Stop 08/08/18 at 06:59; Status DC Cefazolin Sodium 1 gm/Sodium Chloride 500 ml @ 500 mls/hr 1X ONCE IRR Last administered on 08/08/18at 08:46; Start 08/08/18 at 06:00; Stop 08/08/18 at 06 :59; Status DC Lidocaine HCl (Lidocaine Pf 2% Vial) 5 ml STK-MED ONCE .ROUTE ; Start 08/08/18 at 06:16; Stop 08/08/18 at 06:17; Status DC Etomidate (Amidate) 20 mg STK-MED ONCE IV ; Start 08/08/18 at 06:16; Stop at 06:17; Status DC Aminocaproic Acid (Amicar) 5,000 mg STK-MED ONCE IV ; Start 08/08/18 at 06:16; Stop 08/08/18 at 06:17; Status DC Phenylephrine HCl (Jamir-Synephrine Inj) 10 mg STK-MED ONCE .ROUTE ; Start at 06:16; Stop 08/08/18 at 06:17; Status DC Rocuronium [place] (Zemuron) 100 mg STK-MED ONCE .ROUTE ; Start 08/08/18 at 06: 19; Stop 08/08/18 at 06:20; Status DC Heparin Sodium (Porcine) 30,000 unit STK-MED ONCE .ROUTE ; Start 08/08/18 at 06 :20; Stop 08/08/18 at 06:21; Status DC Heparin Sodium (Porcine) (Heparin Sodium) 10,000 unit STK-MED ONCE .ROUTE ; Start 08/08/18 at 06:21; Stop 08/08/18 at 06:22; Status DC Nitroglycerin/ Dextrose 250 ml @ As Directed STK-MED ONCE IV ; Start 08/08/18 at 06:23; Stop 08/08/18 at 06:24; Status DC Midazolam HCl (Versed) 2 mg STK-MED ONCE .ROUTE ; Start 08/08/18 at 06:24; Stop 08/08/18 at 06:25; Status DC Midazolam HCl (Versed) 2 mg STK-MED ONCE .ROUTE ; Start 08/08/18 at 06:24; Stop 08/08/18 at 06:25; Status DC Vancomycin HCl (VANCO for OR ONLY) 10 gm STK-MED ONCE .ROUTE Last administered on 08/08/18 08:46; Start 08/08/18 at 06:31; Stop 08/08/18 at 06:32; Status DC Cellulose (Surgicel Hemostat 4x8) 1 each STK-MED ONCE .ROUTE Last administered on 08/08/18 08:46; Start 08/08/18 at 06:31; Stop 08/08/18 at 06:32; Status DC Papaverine HCl 60 mg STK-MED ONCE .ROUTE Last administered on 08/08/18 08:46 ; Start 08/08/18 at 06:31; Stop 08/08/18 at 06:32; Status DC Aspirin (Aspirin) 300 mg STK-MED ONCE .ROUTE Last administered on 08/08/18at 14 :02; Start 08/08/18 at 06:31; Stop 08/08/18 at 06:32; Status DC Sodium Chloride (SODIUM CHLORIDE 20ml) 20 ml STK-MED ONCE IJ Last administered on 08/08/18at 08:46; Start 08/08/18 at 06:31; Stop 08/08/18 at 06:32; Status DC Sodium Chloride (SODIUM CHLORIDE 20ml) 20 ml STK-MED ONCE IJ Last administered on 08/08/18 08:46; Start 08/08/18 at 06:31; Stop 08/08/18 at 06:32; Status DC Sodium Chloride (SODIUM CHLORIDE 20ml) 20 ml STK-MED ONCE IJ Last administered on 08/08/18at 08:46; Start 08/08/18 at 06:31; Stop 08/08/18 at 06:32; Status DC Ephedrine Sulfate (ePHEDrine PF IN SALINE SYRINGE) 50 mg STK-MED ONCE IV ; Start 08/08/18 at 06:42; Stop 08/08/18 at 06:44; Status DC Insulin Human Regular 150 unit/ Sodium Chloride 151.5 ml @ 0 mls/hr CONT PRN IV SEE I/O RECORD Last administered on 08/09/18at 16:50; Start 08/08/18 at 07: 15; Stop 08/10/18 at 10:08; Status DC Mannitol 500 ml @ 0 mls/hr 1X ONCE IV Last administered on 08/08/18at 07:30; Start 08/08/18 at 07:30; Stop 08/08/18 at 07:31; Status DC Insulin Glargine (Lantus) 20 units QHS SQ Last administered on 08/08/18at 21:32 ; Start 08/08/18 at 21:00; Stop 08/09/18 at 14:38; Status DC Sufentanil Citrate (Sufenta) 250 mcg STK-MED ONCE .ROUTE ; Start 08/08/18 at 07 :57; Stop 08/08/18 at 07:58; Status DC Cefazolin Sodium/ Dextrose (Ancef 2gm Premix) 2 gm STK-MED ONCE IV ; Start at 07:13; Stop 08/08/18 at 08:34; Status DC Heparin Sodium (Porcine) (Heparin Sodium) 10,000 unit STK-MED ONCE .ROUTE ; Start 08/08/18 at 08:37; Stop 08/08/18 at 08:38; Status DC Rocuronium [place] (Zemuron) 100 mg STK-MED ONCE .ROUTE ; Start 08/08/18 at 09: 48; Stop 08/08/18 at 09:49; Status DC Norepinephrine Bitartrate 250 ml @ 1.875 mls/ hr CONT PRN IV SEE I/O RECORD; Start 08/08/18 at 10:45 Heparin Sodium (Porcine) (Heparin Sodium) 10,000 unit STK-MED ONCE .ROUTE ; Start 08/08/18 at 10:35; Stop 08/08/18 at 10:36; Status DC Midazolam HCl (Versed) 2 mg STK-MED ONCE .ROUTE ; Start 08/08/18 at 11:33; Stop 08/08/18 at 11:35; Status DC Midazolam HCl (Versed) 2 mg STK-MED ONCE .ROUTE ; Start 08/08/18 at 11:35; Stop 08/08/18 at 11:36; Status DC Potassium Chloride (Potassium Chloride) 2 meq STK-MED ONCE IV ; Start 08/08/18 at 12:04; Stop 08/08/18 at 12:05; Status DC Potassium Chloride (Potassium Chloride) 2 meq STK-MED ONCE IV ; Start 08/08/18 at 12:04; Stop 08/08/18 at 12:05; Status DC Cefazolin Sodium/ Dextrose 50 ml @ As Directed STK-MED ONCE IV ; Start at 12:14; Stop 08/08/18 at 12:15; Status DC Midazolam HCl (Versed) 2 mg STK-MED ONCE .ROUTE ; Start 08/08/18 at 12:21; Stop 08/08/18 at 12:23; Status DC Protamine Sulfate (Protamine) 250 mg STK-MED ONCE IV ; Start 08/08/18 at 12:44 ; Stop 08/08/18 at 12:46; Status DC Heparin Sodium (Porcine) (Heparin Sodium) 10,000 unit STK-MED ONCE .ROUTE ; Start 08/08/18 at 12:44; Stop 08/08/18 at 12:46; Status DC Protamine Sulfate (Protamine) 250 mg STK-MED ONCE IV ; Start 08/08/18 at 12:44 ; Stop 08/08/18 at 12:46; Status DC Rocuronium [place] (Zemuron) 50 mg STK-MED ONCE .ROUTE ; Start 08/08/18 at 12: 49; Stop 08/08/18 at 12:51; Status DC Midazolam HCl (Versed) 5 mg STK-MED ONCE .ROUTE ; Start 08/08/18 at 13:01; Stop 08/08/18 at 13:02; Status DC Heparin Sodium (Porcine) (Heparin Sodium) 10,000 unit STK-MED ONCE .ROUTE ; Start 08/08/18 at 13:04; Stop 08/08/18 at 13:05; Status DC Lidocaine HCl (Xylocaine-Mpf 1% 5ml Vial) 5 ml STK-MED ONCE .ROUTE ; Start at 13:04; Stop 08/08/18 at 13:05; Status DC Magnesium Sulfate 5 gm STK-MED ONCE .ROUTE ; Start 08/08/18 at 13:04; Stop at 13:05; Status DC Heparin Sodium (Porcine) 30,000 unit STK-MED ONCE .ROUTE ; Start 08/08/18 at 13 :04; Stop 08/08/18 at 13:05; Status DC Albumin Human 200 ml @ As Directed STK-MED ONCE IV ; Start 08/08/18 at 13:04; Stop 08/08/18 at 13:05; Status DC Calcium Chloride (Calcium Chloride) 1,000 mg STK-MED ONCE .ROUTE ; Start at 13:04; Stop 08/08/18 at 13:05; Status DC Sodium Bicarbonate (Sodium Bicarb Adult 8.4% Syr) 50 meq STK-MED ONCE .ROUTE ; Start 08/08/18 at 13:04; Stop 08/08/18 at 13:05; Status DC Sodium Chloride (Normal Saline Flush) 3 ml PRN Q12HR PRN IV AFTER MEDS AND BLOOD DRAWS; Start 08/08/18 at 14:00 Ringer's Solution 1,000 ml @ 30 mls/hr Q24H IV Last administered on at 11:12; Start 08/08/18 at 14:00 Albumin Human 250 ml @ 60 mls/hr PRN Q4HRS PRN IV SEE I/O RECORD Last administered on 08/08/18at 17:25; Start 08/08/18 at 14:00 Insulin Human Regular 150 unit/ Sodium Chloride 151.5 ml @ 0 mls/hr CONT PRN PRN IV SEE I/O RECORD; Start 08/08/18 at 14:00; Stop 08/09/18 at 10:35; Status DC Dextrose (Dextrose 50%-Water Syringe) 25 gm PRN Q15MIN PRN IV LOW BLOOD SUGAR; Start 08/08/18 at 14:00 Nitroglycerin/ Dextrose 250 ml @ 0 mls/hr CONT PRN PRN IV SEE I/O RECORD; Start 08/08/18 at 14:00 Phenylephrine HCl 20 mg/Sodium Chloride 252 ml @ 0 mls/hr CONT PRN PRN IV HYPOTENSION; Start 08/08/18 at 14:00 Epinephrine HCl 4 mg/Sodium Chloride 254 ml @ 0 mls/hr CONT PRN PRN IV POST CV SURGERY; Start 08/08/18 at 14:00 Amiodarone HCl 150 mg/Dextrose 103 ml @ 200 mls/hr 1X PRN PRN IV FOR RUNS OF [place] Last administered on 08/08/18at 15:05; Start 08/08/18 at 14:00 Amiodarone HCl 900 mg/Dextrose 518 ml @ 33.33 mls/ hr CONT PRN PRN IV RUNS OF [place] Last administered on 08/08/18at 15:06; Start 08/08/18 at 14:00 Info (KCl Per Protocol) 1 ea CONT PRN PRN MC SEE COMMENTS; Start 08/08/18 at 14:00 Magnesium Sulfate/ Dextrose 100 ml @ 100 mls/hr PRN DAILY PRN IV FOR MAG < 2.2 Last administered on 08/09/18at 08:02; Start 08/08/18 at 14:00 Famotidine (Pepcid Vial) 20 mg BID IVP Last administered on 08/08/18at 21:08; Start 08/08/18 at 21:00; Stop 08/09/18 at 07:25; Status DC Ondansetron HCl (Zofran) 4 mg PRN Q4HRS PRN IV NAUSEA/VOMITING; Start at 14:00 Morphine Sulfate (Morphine Sulfate) 2 mg PRN Q1HR PRN IV PAIN Last administered on 08/10/18at 04:22; Start 08/08/18 at 14:00 Acetaminophen (Tylenol) 650 mg PRN Q4HRS PRN PO MILD PAIN / TEMP Last administered on 08/10/18at 04:22; Start 08/08/18 at 14:00 Meperidine HCl (Demerol) 12.5 mg PRN Q15MIN PRN IV SHIVERING; Start 08/08/18 at 14:00; Stop 08/09/18 at 14:00; Status DC Propofol 100 ml @ 0 mls/hr CONT PRN PRN IV POSTOP SEDATION UNTIL EXTUBATE Last administered on 08/08/18at 14:50; Start 08/08/18 at 14:00; Stop 08/09/18 at 07 :25; Status DC Chlorhexidine Gluconate (Peridex) 15 ml BID MM ; Start 08/08/18 at 21:00; Stop 08/09/18 at 07:25; Status DC Aspirin (Ecotrin) 325 mg DAILYWBKFT PO Last administered on 08/10/18at 08:28; Start 08/09/18 at 08:00 Aspirin (Aspirin) 300 mg PRN DAILY PRN AR IF UNABLE TO TAKE PO; Start at 14:00; Stop 08/09/18 at 07:25; Status DC Albuterol Sulfate (Ventolin Neb Soln) 2.5 mg PRN Q4HRS PRN NEB SHORTNESS OF BREATH; Start 08/08/18 at 14:00 Nicardipine HCl 50 mg/Sodium Chloride 270 ml @ 0 mls/hr CONT PRN PRN IV PER PROTOCOL; Start 08/08/18 at 14:00 Cefazolin Sodium/ Dextrose 50 ml @ 100 mls/hr Q8H IV Last administered on at 04:24; Start 08/08/18 at 20:00; Stop 08/10/18 at 04:29; Status DC Oxycodone HCl (Roxicodone) 5 mg PRN Q4HRS PRN PO MODERATE PAIN Last administered on 08/09/18at 10:23; Start 08/08/18 at 14:15 Sodium Bicarbonate (Sodium Bicarb Adult 8.4% Syr) 50 meq 1X ONCE IV ; Start at 15:15; Stop 08/08/18 at 15:17; Status DC Potassium Chloride/Water 50 ml @ 50 mls/hr 1X ONCE IV Last administered on at 16:45; Start 08/08/18 at 16:15; Stop 08/08/18 at 17:14; Status DC Potassium Chloride/Water 50 ml @ 50 mls/hr 1X ONCE IV Last administered on at 21:24; Start 08/08/18 at 21:15; Stop 08/08/18 at 22:14; Status DC Furosemide (Lasix) 20 mg 1X ONCE IVP Last administered on 08/09/18at 02:53; Start 08/09/18 at 03:00; Stop 08/09/18 at 03:01; Status DC Oxycodone HCl (Roxicodone) 10 mg PRN Q4HRS PRN PO PAIN SEVERE Last administered on 08/10/18at 08:25; Start 08/09/18 at 10:15 Amiodarone HCl (Cordarone) 400 mg BID PO Last administered on 08/10/18at 08:28 ; Start 08/09/18 at 10:15 Insulin Glargine (Lantus) 30 units QHS SQ Last administered on 08/09/18at 21:09 ; Start 08/09/18 at 21:00 Active Scripts Active Reported Metformin Hcl 1,000 Mg Tablet 1,000 Mg PO DAILYWBKFT Ranitidine Hcl 150 Mg Capsule 150 Mg PO DAILY Zyrtec (Cetirizine Hcl) 10 Mg Tablet 1 Tab PO DAILY Doxazosin Mesylate 4 Mg Tablet 4 Mg PO HS Zoloft (Sertraline Hcl) 100 Mg Tablet 1 Tab PO DAILY Hyzaar 50-12.5 Tablet (Losartan/Hydrochlorothiazide) 1 Each Tablet 1 Tab PO DAILY Metformin Hcl 500 Mg Tablet 500 Mg PO HS Simvastatin 10 Mg Tablet 1 Tab PO HS Vitals/I & O Vital Sign - Last 24 Hours 08/09/18 08/09/18 08/09/18 08/09/18 12:00 12:00 13:00 14:00 Pulse 86 89 84 Resp 18 16 16 B/P (MAP) 118/62 (80) 115/59 (77) 113/59 (77) Pulse Ox 94 94 96 O2 Delivery Room Air Room Air Room Air Room Air 08/09/18 08/09/18 08/09/18 08/09/18 15:00 15:15 16:00 16:00 Temp 99.7 99.7 Pulse 86 87 Resp 16 16 16 B/P (MAP) 138/70 (92) 128/68 (88) Pulse Ox 94 96 95 O2 Delivery Room Air Room Air Room Air Room Air 08/09/18 08/09/18 08/09/18 08/09/18 16:15 17:00 18:00 19:00 Pulse 90 92 94 Resp 16 16 16 26 B/P (MAP) 120/66 (84) 119/63 (81) 125/69 (87) Pulse Ox 96 95 93 94 O2 Delivery Room Air Room Air Room Air Room Air 08/09/18 08/09/18 08/09/18 08/09/18 19:27 20:00 20:00 20:34 Temp 98.1 98.1 Pulse 96 92 Resp 20 25 B/P (MAP) 138/63 (88) 138/63 Pulse Ox 98 94 O2 Delivery Nasal Cannula Room Air Room Air 08/09/18 08/09/18 08/09/18 08/09/18 20:35 20:37 21:00 22:00 Pulse 92 94 94 88 Resp 24 22 B/P (MAP) 138/63 138/63 115/62 (79) 126/69 (88) Pulse Ox 95 94 O2 Delivery Room Air Room Air 08/09/18 08/10/18 08/10/18 08/10/18 23:00 00:00 00:00 01:00 Temp 97.6 97.6 Pulse 84 80 96 Resp 18 20 24 B/P (MAP) 126/61 (82) 119/61 (80) 110/63 (79) Pulse Ox 94 94 95 O2 Delivery Room Air Room Air Room Air BiPAP/CPAP 08/10/18 08/10/18 08/10/18 08/10/18 02:00 03:00 04:00 04:00 Temp 97.6 97.6 Pulse 96 95 91 Resp 26 15 19 B/P (MAP) 103/58 (73) 125/68 (87) 129/67 (87) Pulse Ox 95 95 93 O2 Delivery BiPAP/CPAP BiPAP/CPAP Room Air BiPAP/CPAP 08/10/18 08/10/18 08/10/18 08/10/18 05:00 06:00 07:00 08:00 Temp 98.3 98.3 Pulse 90 84 82 106 Resp 17 16 15 28 B/P (MAP) 120/66 (84) 114/62 (79) 121/66 (84) 159/81 (107) Pulse Ox 93 94 93 95 O2 Delivery BiPAP/CPAP BiPAP/CPAP Room Air Room Air 08/10/18 08/10/18 08/10/18 08/10/18 08:00 08:25 08:28 09:00 Pulse 99 106 Resp 24 28 B/P (MAP) 159/81 179/105 (129) Pulse Ox 94 95 O2 Delivery Room Air Nasal Cannula Room Air 08/10/18 10:00 Pulse 90 Resp 22 B/P (MAP) 121/65 (83) Pulse Ox 93 O2 Delivery Room Air Intake and Output 08/09/18 08/09/18 08/10/18 15:00 23:00 07:00 Intake Total 754 ml 507 ml 461 ml Output Total 380 ml 677 ml 330 ml Balance 374 ml -170 ml 131 ml CARMELA PLEITEZ MD Aug 10, 2018 11:41
--- NOTE | 2018-08-10 12:05 | PDOC ---
Progress Note Subjective Subjective Doing very well. Normotensive and in sinus rhythm. On room air. Minimal pleural tube output. Boderline concentrated urine output. Chest x-ray rotated, but looks OK. Hb 12.2, creat 1.1. ROS ROS No nausea No vomiting No pain No rash Vital Sign Vital Signs Vital Signs Date Time Temp Pulse Resp B/P (MAP) Pulse Ox O2 Delivery O2 Flow Rate FiO2 08/10/18 10:00 90 22 121/65 (83) 93 Room Air 08/10/18 07:00 98.3 98.3 08/09/18 10:23 3.0 Physical Exam PHYSICAL EXAM GENERAL: NAD, Alert HEENT: PERRL, OC/OP NECK: Supple, no JVD, no LN LUNGS: Clear HEART: S1S2, no gallop, no murmur ABD: Soft, NT, no organomegaly, no rebound EXT: No edema, no cyanosis RADIO PRESENTER: Alert, oriented x 3, no focal neurologic deficit SKIN: No rash IV: ok Labs Lab Laboratory Tests Test 08/09/18 12:51 08/09/18 14:52 08/09/18 15:59 08/09/18 17:40 Glucose (Fingerstick) 133 mg/dL (70-99) 180 mg/dL (70-99) 155 mg/dL (70-99) 123 mg/dL (70-99) Test 08/09/18 18:47 08/09/18 20:04 08/09/18 21:06 08/09/18 22:09 Glucose (Fingerstick) 126 mg/dL (70-99) 136 mg/dL (70-99) 121 mg/dL (70-99) 117 mg/dL (70-99) Test 08/09/18 23:14 08/10/18 00:17 08/10/18 01:23 08/10/18 02:25 Glucose (Fingerstick) 138 mg/dL (70-99) 143 mg/dL (70-99) 143 mg/dL (70-99) 148 mg/dL (70-99) Test 08/10/18 03:16 08/10/18 04:28 08/10/18 05:31 08/10/18 05:44 Glucose (Fingerstick) 124 mg/dL (70-99) 146 mg/dL (70-99) 147 mg/dL (70-99) White Blood Count 13.3 x10^3/uL (4.0-11.0) Red Blood Count 4.11 x10^6/uL (4.30-5.70) Hemoglobin 12.2 g/dL (13.0-17.5) Hematocrit 36.1 % (39.0-53.0) Mean Corpuscular Volume 88 fL (79-100) Mean Corpuscular Hemoglobin 30 pg (25-35) Mean Corpuscular Hemoglobin Concent 34 g/dL (31-37) Red Cell Distribution Width 13.8 % (11.5-14.5) Platelet Count 180 x10^3/uL (140-400) Sodium Level 136 mmol/L (136-145) Potassium Level 3.8 mmol/L (3.5-5.1) Chloride Level 101 mmol/L (98-107) Carbon Dioxide Level 27 mmol/L (21-32) Anion Gap 8 (6-14) Blood Urea Nitrogen 10 mg/dL (8-26) Creatinine 1.1 mg/dL (0.7-1.3) Estimated GFR (Cockcroft-Gault) 66.2 Glucose Level 157 mg/dL (70-99) Calcium Level 8.7 mg/dL (8.5-10.1) Magnesium Level 1.7 mg/dL (1.8-2.4) Test //18 06:35 08/10/18 08:37 Glucose (Fingerstick) 142 mg/dL (70-99) 157 mg/dL (70-99) Objective Assessment POD#2, s/p CABG x 4 (PRADO to LAD, SVG to OM2, SVG to diag 1, SVG to RPDA) Doing very well. Normotensive and in sinus rhythm. On room air. Minimal pleural tube output. Boderline concentrated urine output. Chest x-ray rotated, but looks OK. Hb 12.2, creat 1.1. Plan Plan of Care D/c pleural tube D/c pacing wires D/c cuevas D/c RIJ cordis 250cc bolus followed by 20mg iv lasix Amiodarone po for AFib prophylaxis ASA, b braxton and statin Ambulation and pulm toilet Lantus to 30 units QHS. Stop insulin drip and start medium sliding scale Transfer to stepdown TSIOURIS,ATHANASIOS MD Aug 10, 2018 12:05
[2018-08-10] MEDS ORDERED: FUROSEMIDE 20 MG/2 ML VIAL. IVP ONE (13:30)
[2018-08-10] MEDS ORDERED: IV RINGERS,LACTATED 500ML 500 ML IV ONE (13:30)
[2018-08-10] MEDS ORDERED: POTASSIUM CHLORIDE 20 MEQ TABLET.ER. PO ONE (13:30)
[2018-08-10] MEDS ORDERED: DEXTROSE 50% 25 GM / 50ML DISP.SYRIN. IV PRN (16:45)
[2018-08-10] MEDS: INSULIN LISPRO 300 UNITS/3 ML INSULN.PEN. SQ SCH (17:00)
--- NOTE | 2018-08-10 18:06 | PN ---
DATE: 08/10/2018 LOCATION: He is in room ICU 102. SUBJECTIVE: The patient is awake, alert. Has expected chest tenderness, status post coronary artery bypass graft, otherwise really denies any significant complaints. Nursing present and discussed in detail with same. Sugars have been relatively decent. They are having to fight the insulin drip off and on, up and down and would seem that he is on Lantus at this point in time of bedtime, we can switch to a sliding scale insulin with meals. OBJECTIVE: VITAL SIGNS: Stable. He is afebrile. He is awake and alert. CHEST: Distant breath sounds, but clear. HEART: Regular rate and rhythm. ABDOMEN: Soft, nontender, without hepatosplenomegaly or mass. EXTREMITIES: Without cyanosis, clubbing, edema. NEUROLOGIC: Intact. IMPRESSION: 1. Non-ST myocardial infarction with 3-vessel coronary artery disease, status post coronary artery bypass graft. 2. Hypertension. 3. Hyperlipidemia. 4. Type 2 diabetes, currently using insulin for tight control. PLAN: Continue present other than discounting insulin drip and using sliding scale insulin. Chest tubes, Trevino, etc. per surgery as to when these are time to come out, otherwise same. NICO LOO MD DR: MAGDI/anton JOB#: [id number] / [id number]
[2018-08-10] MEDS: DOXAZOSIN MESYLATE 4 MG TABLET. PO SCH (20:55)
[2018-08-10] MEDS: ATORVASTATIN CALCIUM 40 MG TABLET. PO SCH (20:55)
[2018-08-10] MEDS: METOPROLOL TART IMMED RELEASE 25 MG TABLET. PO SCH (20:55)
[2018-08-10] MEDS: INSULIN GLARGINE 300 UNITS/3 ML INSULN.PEN. SQ SCH (21:00)
[2018-08-11] MEDS: oxyCODONE IR 5 MG TABLET PO PRN ×2 (00:02→11:05)
[2018-08-11 03:00] VITALS: BP 107/71
[2018-08-11 04:53] LABS: HEMATOCRIT 37.3 % (39.0-53.0); RED BLOOD COUNT 4.25 x10^6/uL (4.30-5.70); RED CELL DISTRIBUTION WIDTH 13.5 % (11.5-14.5)
[2018-08-11 05:50] LABS: CALCIUM 9.4 mg/dL (8.5-10.1); CREATININE 1.3 mg/dL (0.7-1.3); GFR 54.6; MAGNESIUM 1.8 mg/dL (1.8-2.4); POTASSIUM 3.8 mmol/L (3.5-5.1)
[2018-08-11 07:00] VITALS: BP 137/63
[2018-08-11] MEDS: hydroCHLOROthiazide 12.5 MG CAPSULE PO SCH (08:30)
[2018-08-11] MEDS: SERTRALINE 50 MG TABLET. PO SCH (08:31)
[2018-08-11] MEDS: ASPIRIN ENTERIC COATED 325 MG TABLET.DR. PO SCH (08:31)
[2018-08-11] MEDS: PANTOPRAZOLE 40 MG TABLET.DR. PO SCH (08:31)
[2018-08-11] MEDS: METOPROLOL TART IMMED RELEASE 25 MG TABLET. PO SCH ×2 (08:31→21:12)
[2018-08-11] MEDS: CETIRIZINE HCL 10 MG TABLET. PO SCH (08:31)
[2018-08-11] MEDS: AMIODARONE HCL 200 MG TABLET. PO SCH ×2 (08:32→21:13)
[2018-08-11] MEDS: INSULIN LISPRO 300 UNITS/3 ML INSULN.PEN. SQ SCH ×3 (08:35→17:00)
--- NOTE | 2018-08-11 09:03 | RAD ---
Chest radiograph 08/11/2018 7:00 AM INDICATION: Postoperative COMPARISON: August 10, 2018 TECHNIQUE: Portable upright frontal view of the chest is provided. FINDINGS: The cardiomediastinal silhouette is similar in appearance. Median sternotomy changes are present. Interval removal of right IJ sheath. Interval removal of left-sided thoracostomy catheter. There is a small left pleural effusion, not significantly changed. No significant pulmonary vascular congestion or pneumothorax. IMPRESSION: Small left pleural effusion with adjacent compressive atelectasis. Electronically signed by: Raeann Olson MD (08/11/2018 8:59 AM) [facility]
[2018-08-11 11:00] VITALS: BP 130/60
--- NOTE | 2018-08-11 12:21 | PN ---
DATE: 08/11/2018 LOCATION: He is in room 250. SUBJECTIVE: The patient is awake and alert. He has just got up to use the bathroom and was unable to make it and has urinated all over the floor. States he is a little bit better on a daily basis; however, still does not have a normal appetite. OBJECTIVE: VITAL SIGNS: Stable. He is afebrile. GENERAL: Helped nursing change him this morning and incisions, etc. look good. CHEST: Clear to auscultation. HEART: Regular rate and rhythm. ABDOMEN: Benign. EXTREMITIES: Without cyanosis, clubbing, or significant edema. NEUROLOGIC: He is intact. LABORATORY DATA: A.m. labs including CBC and CMP look good. Chest x-ray this morning shows small left pleural effusion. Trevino catheter, chest tubes and pacing wires have all been removed. IMPRESSION: 1. Non-ST myocardial infarction with 3-vessel coronary artery disease, status post coronary artery bypass graft. 2. Hypertension. 3. Hyperlipidemia. 4. Diabetes with transition to Lantus daily and sliding scale insulin with decent blood sugars in the 170-180 range over the last 24 hours. PLAN: Continue present care and increase activity as tolerated and continue present diabetic regimen. NICO LOO MD DR: MAGDI/anton JOB#: [id number] / [id number]
[2018-08-11 15:00] VITALS: BP 137/74
[2018-08-11] MEDS: traMADol 50 MG TABLET PO PRN (17:38)
--- NOTE | 2018-08-11 18:58 | PDOC ---
Progress Note Subjective Subjective Doing very well. Normotensive and in sinus rhythm. On room air. CXR OK. Hb 13, creat 1,3. ROS ROS No nausea No vomiting No pain No rash Vital Sign Vital Signs Vital Signs Date Time Temp Pulse Resp B/P (MAP) Pulse Ox O2 Delivery O2 Flow Rate FiO2 08/11/18 18:39 96 Room Air 3.0 08/11/18 17:38 18 08/11/18 15:00 98.1 87 137/74 (95) 98.1 Physical Exam PHYSICAL EXAM GENERAL: NAD, Alert HEENT: PERRL, OC/OP NECK: Supple, no JVD, no LN LUNGS: Clear HEART: S1S2, no gallop, no murmur ABD: Soft, NT, no organomegaly, no rebound EXT: No edema, no cyanosis DIRECTOR PEOPLESOFT: Alert, oriented x 3, no focal neurologic deficit SKIN: No rash IV: ok Labs Lab Laboratory Tests Test 08/10/18 20:54 08/11/18 04:30 08/11/18 07:40 08/11/18 11:07 Glucose (Fingerstick) 179 mg/dL (70-99) 179 mg/dL (70-99) 171 mg/dL (70-99) White Blood Count 11.0 x10^3/uL (4.0-11.0) Red Blood Count 4.25 x10^6/uL (4.30-5.70) Hemoglobin 13.0 g/dL (13.0-17.5) Hematocrit 37.3 % (39.0-53.0) Mean Corpuscular Volume 88 fL (79-100) Mean Corpuscular Hemoglobin 31 pg (25-35) Mean Corpuscular Hemoglobin Concent 35 g/dL (31-37) Red Cell Distribution Width 13.5 % (11.5-14.5) Platelet Count 229 x10^3/uL (140-400) Sodium Level 133 mmol/L (136-145) Potassium Level 3.8 mmol/L (3.5-5.1) Chloride Level 96 mmol/L (98-107) Carbon Dioxide Level 27 mmol/L (21-32) Anion Gap 10 (6-14) Blood Urea Nitrogen 14 mg/dL (8-26) Creatinine 1.3 mg/dL (0.7-1.3) Estimated GFR (Cockcroft-Gault) 54.6 Glucose Level 183 mg/dL (70-99) Calcium Level 9.4 mg/dL (8.5-10.1) Magnesium Level 1.8 mg/dL (1.8-2.4) Test 08/11/18 17:26 Glucose (Fingerstick) 160 mg/dL (70-99) Objective Assessment POD#3, s/p CABG x 4 (PRADO to LAD, SVG to OM2, SVG to diag 1, SVG to RPDA) Doing very well. Normotensive and in sinus rhythm. On room air. CXR OK. Hb 13, creat 1,3. Plan Plan of Care Amiodarone po for AFib prophylaxis-will stop prior to discharge ASA, b braxton and statin Ambulation and pulm toilet Lantus to 30 units QHS with sliding scale Possible d/c home tomorrow vs Sunday CHAPARRITA OCAMPO MD Aug 11, 2018 18:58
[2018-08-11 19:00] VITALS: BP 162/74
[2018-08-11] MEDS: ACETAMINOPHEN 325 MG TABLET. PO PRN (19:06)
[2018-08-11] MEDS: ATORVASTATIN CALCIUM 40 MG TABLET. PO SCH (21:00)
[2018-08-11] MEDS: DOXAZOSIN MESYLATE 4 MG TABLET. PO SCH (21:14)
[2018-08-11] MEDS: INSULIN GLARGINE 300 UNITS/3 ML INSULN.PEN. SQ SCH (21:21)
[2018-08-11 22:45] VITALS: BP 132/63
[2018-08-12 02:53] VITALS: BP 148/73
[2018-08-12] MEDS: traMADol 50 MG TABLET PO PRN ×3 (03:57→17:46)
[2018-08-12 07:00] VITALS: BP 159/85
[2018-08-12] MEDS: hydroCHLOROthiazide 12.5 MG CAPSULE PO SCH (08:59)
[2018-08-12] MEDS: AMIODARONE HCL 200 MG TABLET. PO SCH ×2 (08:59→20:52)
[2018-08-12] MEDS: CETIRIZINE HCL 10 MG TABLET. PO SCH (09:00)
[2018-08-12] MEDS: PANTOPRAZOLE 40 MG TABLET.DR. PO SCH (09:00)
[2018-08-12] MEDS: METOPROLOL TART IMMED RELEASE 25 MG TABLET. PO SCH ×2 (09:00→20:53)
[2018-08-12] MEDS: ASPIRIN ENTERIC COATED 325 MG TABLET.DR. PO SCH (09:00)
[2018-08-12] MEDS: SERTRALINE 50 MG TABLET. PO SCH (09:00)
--- NOTE | 2018-08-12 09:16 | PDOC ---
Provider Note Provider Note will resume metformin and reduce insulin, sono scrotum re chronic edema, ? hydrocele MORTEZA UMANA MD Aug 12, 2018 09:16
--- NOTE | 2018-08-12 10:22 | PDOC ---
Progress Note Subjective Subjective Doing very well. SBP 150s, sinus rhythm. On room air. No BM ROS ROS No nausea No vomiting No pain No rash Vital Sign Vital Signs Vital Signs Date Time Temp Pulse Resp B/P (MAP) Pulse Ox O2 Delivery O2 Flow Rate FiO2 08/12/18 09:04 Room Air 08/12/18 09:00 85 159/85 08/12/18 07:00 97.5 16 96 97.5 08/11/18 20:07 3.0 Physical Exam PHYSICAL EXAM GENERAL: NAD, Alert HEENT: PERRL, OC/OP NECK: Supple, no JVD, no LN LUNGS: Clear HEART: S1S2, no gallop, no murmur ABD: Soft, NT, no organomegaly, no rebound EXT: No edema, no cyanosis MODERN GREEK STUDIES PROFESSOR: Alert, oriented x 3, no focal neurologic deficit SKIN: No rash IV: ok Labs Lab Laboratory Tests Test 08/11/18 11:07 08/11/18 17:26 08/11/18 20:41 08/12/18 07:37 Glucose (Fingerstick) 171 mg/dL (70-99) 160 mg/dL (70-99) 188 mg/dL (70-99) 136 mg/dL (70-99) Objective Assessment POD#4, s/p CABG x 4 (PRADO to LAD, SVG to OM2, SVG to diag 1, SVG to RPDA) Doing very well. SBP 150s, sinus rhythm. On room air. No BM Plan Plan of Care Amiodarone po for AFib prophylaxis-will stop prior to discharge Re-started on Metformin, lantis down to 20U ASA, b braxton and statin Ambulation and pulm toilet Start Losartan 25mg po daily D/c home tomorrow CHAPARRITA OCAMPO MD Aug 12, 2018 10:22
[2018-08-12] MEDS ORDERED: POLYETHYLENE GLYCOL 3350 17 GM PACKET. PO PRN (10:30)
[2018-08-12] MEDS ORDERED: SENNOSIDES/DOCUSATE 8.6/50MG TABLET. PO PRN (10:30)
[2018-08-12 11:00] VITALS: BP 145/74
[2018-08-12] MEDS: ACETAMINOPHEN 325 MG TABLET. PO PRN ×2 (11:16→20:52)
--- NOTE | 2018-08-12 12:07 | PDOC ---
JOSE ANTONIO SIEGEL APRN 08/12/18 1207: CARDIO Progress Notes Date and Time Date of Service 08/12/18 Time of Evaluation 1205 Subjective Subjective: No shortness of breath, No Palpitations, Other (mild incisional CP) Vitals Vitals Vital Signs Date Time Temp Pulse Resp B/P (MAP) Pulse Ox O2 Delivery O2 Flow Rate FiO2 08/12/18 11:00 98.2 95 20 145/74 (97) 97 Room Air 98.2 08/11/18 20:07 3.0 Weight Weight [ ] Input and Output Intake and Output Intake and Output 08/12/18 07:00 Intake Total 200 ml Output Total 725 ml Balance -525 ml Intake Oral 200 ml Output Urine Total 725 ml Laboratory Labs Laboratory Tests Test 08/11/18 17:26 08/11/18 20:41 08/12/18 07:37 08/12/18 11:24 Glucose (Fingerstick) 160 mg/dL (70-99) 188 mg/dL (70-99) 136 mg/dL (70-99) 211 mg/dL (70-99) Physical Exam HEENT: Neck Supple W Full Motion Chest: Symmetric, Other (sternal dressing intact) LUNGS: Clear to Auscultation Heart: S1S2, RRR (SR) Abdomen: Soft N/T Extremities: No Edema, No Calf Tenderness, Other (left medical thigh ecchymosis ) Neurology: alert, oriented, follow commands Assessment Assessment 1. Non-STEMI/ 3V CAD; s/p CABG, POD# 4. Doing very well post-operatively. No significant arrhythmias noted on telemetry. 2. Hypertension; controlled 3. Hyperlipidemia; statin 4. Diabetes, II; as per PCP Recommendations Secondary prevention measures including ASA, statin, BB, and ARB. Increase ambulation as tolerated. Continue IS. Continue post-op care as per CTS. Plans for discharge in am Cardiac rehab referral Follow up with Dr. Campuzano as scheduled. LINH CAMPUZANO MD 08/12/18 5063: CARDIO Progress Notes Assessment Assessment Patient seen and examined. Agree with PHARMACY DISTRICT MANAGER's assessment and plan. s/p CABG, progressing well Telemetry without any significant arrhythmias Continue current medications and PT/OT Anticipate discharge tomorrow per CTS JOSE ANTONIO SIEGEL APRN Aug 12, 2018 12:07 LINH CAMPUZANO MD Aug 12, 2018 15:53
[2018-08-12] MEDS: metFORMIN 500 MG TABLET PO SCH ×2 (13:00→17:43)
[2018-08-12] MEDS: LOSARTAN POTASSIUM 25 MG TABLET. PO SCH (13:00)
[2018-08-12 15:00] VITALS: BP 128/69
[2018-08-12 19:45] VITALS: BP 132/74
[2018-08-12] MEDS: ATORVASTATIN CALCIUM 40 MG TABLET. PO SCH (20:52)
[2018-08-12] MEDS: DOXAZOSIN MESYLATE 4 MG TABLET. PO SCH (20:52)
[2018-08-12] MEDS ORDERED: INSULIN GLARGINE 300 UNITS/3 ML INSULN.PEN. SQ SCH (21:00)
[2018-08-12 23:36] VITALS: BP 107/71
[2018-08-13 03:53] VITALS: BP 119/64
[2018-08-13 07:00] VITALS: BP 132/73
--- NOTE | 2018-08-13 08:12 | RAD ---
Ultrasound of the scrotum HISTORY: Enlarged testicles, no known injury. Enlarged testicles for months. COMPARISON: None RIGHT: Right testicle * Size:5.0 cm x 3.8 cm x 3.2 cm * Blood supply: Intact blood flow. * Appearance: Homogeneous echotexture. Small hypoechoic lesion inferiorly, as a cystic appearance. Right epididymis: There is a small 3 mm cystic-type lesion, probably within the right epididymal head, could be at the edge of the testicle. Measures 3 mm. Miscellaneous findings: Small hydrocele. LEFT: Left testicle * Size:5.8 cm x 3.8 cm x 2.8 cm. * Blood supply: Intact blood flow. * Appearance: Homogeneous echotexture. Left epididymis: 6 mm cyst. Miscellaneous findings: Small hydrocele. IMPRESSION: 1. Both testicles demonstrate homogeneous echotexture and blood flow. 2. Small 3 mm lesion in the right testicle has the appearance of a small cyst. 3. Left epididymal head cyst. Electronically signed by: Brandon Mclean MD (08/13/2018 8:08 AM) [id number]
[2018-08-13 08:33] LABS: ART BE ISTAT -1 mmol/L (0-3); ART GLUC ISTAT 158 mg/dL (70-99); ART HCO3 ISTAT 24 mmol/L (21-28); ART HCT ISTAT 33 % (37-52); ART HGB ISTAT 11.2 g/dL (14-18); ART ION CA ISTAT 1.55 mmol/L (1.13-1.32); ART K ISTAT 3.9 mmol/L (3.5-5.0); ART NA ISTAT 139 mmol/L (135-145); ART PCO2 ISTAT 38 mmHg (35-45); ART PO2 ISTAT 167 mmHg (75-100); ART SAT O2 SAT 100 % (95-99); ART TCO2 ISTAT 25 mmol/L (21-32)
[2018-08-13] MEDS: METOPROLOL TART IMMED RELEASE 25 MG TABLET. PO SCH (08:47)
[2018-08-13] MEDS: hydroCHLOROthiazide 12.5 MG CAPSULE PO SCH (08:47)
[2018-08-13] MEDS: SERTRALINE 50 MG TABLET. PO SCH (08:48)
[2018-08-13] MEDS: AMIODARONE HCL 200 MG TABLET. PO SCH (08:48)
[2018-08-13] MEDS: LOSARTAN POTASSIUM 25 MG TABLET. PO SCH (08:48)
[2018-08-13] MEDS: metFORMIN 500 MG TABLET PO SCH (08:48)
[2018-08-13] MEDS: ASPIRIN ENTERIC COATED 325 MG TABLET.DR. PO SCH (08:49)
[2018-08-13] MEDS: CETIRIZINE HCL 10 MG TABLET. PO SCH (08:49)
[2018-08-13] MEDS: PANTOPRAZOLE 40 MG TABLET.DR. PO SCH (08:49)
--- NOTE | 2018-08-13 09:07 | PDOC ---
Provider Note Provider Note vss, labs ok, scrotal sono shows cysts , no surg lesion- ok re dc , same dm meds as he will lose wt re new diagnosis MORTEZA UMANA MD Aug 13, 2018 09:07
--- NOTE | 2018-08-13 09:51 | PDOC ---
Progress Note Subjective Subjective Doing very well. SBP 120-140s, sinus rhythm. On room air. 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 SBP 120-140s, sinus rhythm. On room air. No BM Plan Plan of Care Stop Amiodarone D/c home today F/u in clinic in 3 weeks Dulcolax supp before discharge CHAPARRITA OCAMPO MD Aug 13, 2018 09:51
[2018-08-13] MEDS ORDERED: metFORMIN 500 MG TABLET PO SCH ×2 (10:00→17:00)
[2018-08-13] MEDS ORDERED: ASPI325T8 PO ×2 (10:40→10:42)
[2018-08-13] MEDS ORDERED: ACET325T9 PO (10:43)
[2018-08-13 11:00] VITALS: BP 128/67
[2018-08-13] MEDS ORDERED: BISACODYL 10 MG SUPP.RECT. PR ONE (11:00)
[2018-08-13] MEDS: ACETAMINOPHEN 325 MG TABLET. PO PRN (11:19)
--- NOTE | 2018-08-14 08:51 | PDOC ---
Provider Note Provider Note [id number] MORTEZA UMANA MD Aug 14, 2018 08:50
--- NOTE | 2018-08-14 09:18 | DS ---
DATE OF DISCHARGE: 08/13/2018 HOSPITAL SUMMARY: This 72-year-old white male, noninsulin-dependent diabetic, came in with atypical right-sided chest pain, had cardiac catheterization because of elevated troponin up to 1.03, revealed diffuse coronary disease. His hemoglobin A1c was 8.3, cholesterol 166, HDL 36, LDL 90. TSH normal. Chemistry profile unremarkable. He underwent coronary artery bypass per Dr. Linares and had the usual good recovery with use of insulin until he was able to resume his metformin prior to dismissal. FINAL DIAGNOSES: 1. Chest pain secondary to acute non-ST elevated myocardial infarction. 2. Diffuse coronary artery disease. 3. Type 2 diabetes mellitus, non-insulin dependent. OPERATIONS AND PROCEDURES: Cardiac catheterization, coronary artery bypass surgery. COMPLICATIONS: None. CONSULTATIONS: Dr. Linares, Dr. Richards's group. DISPOSITION: He was switched from simvastatin to atorvastatin 20 mg daily, despite good lipid control. Continue aspirin daily. Add metoprolol 25 mg twice a day and resume his metformin 1500 mg daily at home. Suspect his A1c will improve with better diet as he has not been real compliant with diet recently, but may need additional medication such as Trulicity or Victoza. Office followup in [address] Jimenez and Dr. Linares as requested. PROGNOSIS: Good. MORTEZA JIMENEZ MD DR: DIANNE/nts JOB#: [id number] / [id number]
== END 2018-08-13 12:50 | disposition home or self-care (01) | DRG 234 ==
LOC: ER 16:56 → 2 SOUTH 19:36 → 1 WEST ICU 08-08 11:01 → 2 SOUTH 08-10 17:49
PROVIDERS: ADMIT Family Medicine; ATTEND Family Medicine
PROC: 4A023N7 Measurement of Cardiac Sampling and Pressure, Left Heart, Percutaneous Approach (ICD-10-PCS; 2018-08-06)
PROC: B2151ZZ Fluoroscopy of Left Heart using Low Osmolar Contrast (ICD-10-PCS; 2018-08-06)
PROC: B2111ZZ Fluoroscopy of Multiple Coronary Arteries using Low Osmolar Contrast (ICD-10-PCS; 2018-08-06)
PROC: 021209W Bypass Coronary Artery, Three Arteries from Aorta with Autologous Venous Tissue, Open Approach (ICD-10-PCS; 2018-08-08)
PROC: 06BQ4ZZ Excision of Left Saphenous Vein, Percutaneous Endoscopic Approach (ICD-10-PCS; 2018-08-08)
PROC: 5A1221Z Performance of Cardiac Output, Continuous (ICD-10-PCS; 2018-08-08)
PROC: 5A09357 Assistance with Respiratory Ventilation, Less than 24 Consecutive Hours, Continuous Positive Airway Pressure (ICD-10-PCS; 2018-08-08)
PROC: 02100Z9 Bypass Coronary Artery, One Artery from Left Internal Mammary, Open Approach (ICD-10-PCS; principal; 2018-08-08 07:30)
PROC: 5A09357 Assistance with Respiratory Ventilation, Less than 24 Consecutive Hours, Continuous Positive Airway Pressure (ICD-10-PCS; 2018-08-10)
PROC: 5A09357 Assistance with Respiratory Ventilation, Less than 24 Consecutive Hours, Continuous Positive Airway Pressure (ICD-10-PCS; 2018-08-13)
DX: I21.4 Non-ST elevation (NSTEMI) myocardial infarction (principal); E11.9 Type 2 diabetes mellitus without complications; E66.01 Morbid (severe) obesity due to excess calories; E78.5 Hyperlipidemia, unspecified; G47.33 Obstructive sleep apnea (adult) (pediatric); I10 Essential (primary) hypertension; I25.10 Atherosclerotic heart disease of native coronary artery without angina pectoris; I25.41 Coronary artery aneurysm; K21.9 Gastro-esophageal reflux disease without esophagitis; N40.0 Benign prostatic hyperplasia without lower urinary tract symptoms; N52.9 Male erectile dysfunction, unspecified; Z82.49 Family history of ischemic heart disease and other diseases of the circulatory system; F41.9 Anxiety disorder, unspecified; J30.2 Other seasonal allergic rhinitis; M19.90 Unspecified osteoarthritis, unspecified site; Z79.899 Other long term (current) drug therapy; Z68.36 Body mass index [BMI] 36.0-36.9, adult
CPT/HCPCS: 36415; 36600; 71045; 71250; 76870; 80048; 80053; 80061; 82803; 82805; 82962; 83036; 83735; 83880; 84132; 84443; 84484; 85025; 85027; 85347; 85384; 85520; 85610; 85730; 86850; 86900; 86901; 86920; 87641; 87804; 93005; 93306; 93458; 93571; 93880; 93970; 94002; 99152; 99153; C1769; C1781; C1892; J0282; J0583; J0690; J1644; J1815; J1940; J2001; J2250; J2270; J2440; J2704; J3010; J3370; J3475; J3480; J3490; J7030; J7040; J7120; P9041; P9046; 97116; 99285-25

== ENCOUNTER → 2018-09-06 | Outpatient (CLI) | payer OTHER, MEDICARE ==
[2018-08-13 11:00] VITALS: BP 128/67
[~2018-09-06] MED LIST changes: +ACET325T9 PO; +ASPI325T8 PO; +BISO1TAB7 PO; +CETI10TA22 PO; +DOXA4TAB3 PO; +IBUP-1007 PO; +LOSA1TAB2 PO; +METF10007 PO; +PSEU120T9 PO; +RANI150C PO; +SERT100T PO; +SIMV10TA3 PO
--- NOTE | 2018-09-06 16:21 | RAD ---
Chest, 2 views, 09/06/2018: HISTORY: Postop CABG Comparison is made to a study from 08/11/2018. There has been a previous median sternotomy. The heart size and pulmonary vascularity are normal. No pulmonary infiltrate is seen. There is no evidence of pleural fluid. Moderate spurring is present in the spine. IMPRESSION: No significant postoperative cardiopulmonary abnormality is detected. Electronically signed by: Chidi Charlton MD (09/06/2018 4:16 PM) [facility]
== END | disposition home or self-care (01) ==
LOC: RAD 12:29
PROVIDERS: ATTEND Internal Medicine Cardiovascular Disease
DX: M46.04 Spinal enthesopathy, thoracic region (principal); Z95.1 Presence of aortocoronary bypass graft
CPT/HCPCS: 71046

== ENCOUNTER → 2019-04-16 | Outpatient (CLI) | payer OTHER ==
[2019-04-16 09:52] LABS: CHOLESTEROL/HDL RATIO 3.1
== END | disposition home or self-care (01) ==
LOC: LAB 09:14
PROVIDERS: ATTEND Family Medicine
DX: Z12.5 Encounter for screening for malignant neoplasm of prostate (principal); E78.5 Hyperlipidemia, unspecified; Z80.42 Family history of malignant neoplasm of prostate
CPT/HCPCS: 36415; 80061; G0103

== ENCOUNTER → 2020-01-21 | Outpatient (CLI) | payer OTHER ==
[~2020-01-21] MED LIST changes: -BISO1TAB7 PO; +BISO1TAB8 PO; -CETI10TA22 PO; +CETI10TA24 PO; +SIMV10TA15 PO; -SIMV10TA3 PO; +SIMV20TA18 PO; -SIMV20TA3 PO
--- NOTE | 2020-01-21 09:20 | CARD ---
MR#: [id number] Date of Study: 01/21/2020 Ordering Physician: LINH CHING, Referring Physician: LINH CHING Tech: Kylah Chow RDCS APPROVED REPORT EXAM: Two-dimensional and M-mode echocardiogram with Doppler and color Doppler. Other Information Quality : Good INDICATION Cardiac Disease: CAD Surgery/Intervention CABG: Date: 07/2018 2D DIMENSIONS RVDd2.8 (2.9-3.5cm)Left Atrium(2D)4.2 (1.6-4.0cm) IVSd1.2 (0.7-1.1cm)Aortic Root(2D)3.7 (2.0-3.7cm) LVDd5.3 (3.9-5.9cm)LVOT Diameter2.2 (1.8-2.4cm) PWd1.2 (0.7-1.1cm)LVDs2.9 (2.5-4.0cm) FS (%) 44.3 %SV101.0 ml LVEF(%)60.0 (>50%) Aortic Valve AoV Peak Avinash.120.5cm/sAoV VTI24.3cm AO Peak GR.5.8mmHgLVOT Peak Avinash.111.7cm/s AO Mean GR.3mmHgAVA (VMAX)3.49cm2 CHEO (VTI)3.74kl0BJ P 1/2 Qjjt424rc Mitral Valve MV E Fnqslosz940.7cm/sMV DECEL VEJK574ha MV A Btirziqk821.3cm/sE/A Ratio1.1 Tricuspid Valve TR P. Glcxxure205nr/sRAP OAQWHDRW3geXb TR Peak Gr.28ouEyWGTY89ueBw Pulmonary Vein S1 Kwpcltob64.3cm/sD2 Wlekkubz71.4cm/s LEFT VENTRICLE The left ventricle is normal size. There is mild concentric left ventricular hypertrophy. The left ve ntricle systolic function is normal. The Ejection Fraction is 55-60%. There is normal LV segmental wa ll motion. The left ventricular diastolic function and filling is normal for age. RIGHT VENTRICLE The right ventricle is normal size. The right ventricular systolic function is normal. ATRIA The left atrium is mildly dilated. The right atrium size is normal. The interatrial septum is intact with no evidence for an atrial septal defect or patent foramen ovale as noted on 2-D or Doppler imagi ng. AORTIC VALVE The aortic valve is calcified but opens well. Doppler and Color Flow revealed mild aortic regurgitati on. There is no significant aortic valvular stenosis. MITRAL VALVE The mitral valve is calcified but opens well. Mitral annular calcification is mild. There is no evide nce of mitral valve prolapse. There is no mitral valve stenosis. Doppler and Color Flow revealed no m itral valve regurgitation noted. TRICUSPID VALVE The tricuspid valve is normal in structure and function. Doppler and Color Flow revealed trace tricus pid regurgitation. The PA pressure was estimated at 28 mmHg. There is no tricuspid valve stenosis. PULMONIC VALVE The pulmonic valve is not well visualized. Doppler and Color Flow revealed trace pulmonic valvular re gurgitation. There is no pulmonic valvular stenosis. GREAT VESSELS The aortic root is normal in size. The ascending aorta is normal in size. The IVC is normal in size a nd collapses >50% with inspiration. PERICARDIAL EFFUSION There is no evidence of significant pericardial effusion. Critical Notification Critical Value: No <Conclusion> The left ventricle systolic function is normal. The Ejection Fraction is 55-60%. There is normal LV segmental wall motion. The left atrium is mildly dilated. Mild aortic regurgitation. Trace tricuspid regurgitation. The PA pressure was estimated at 28 mmHg. There is no evidence of significant pericardial effusion. Signed by : Linh Ching, Electronically Approved : 01/21/2020 09:19:46
== END | disposition home or self-care (01) ==
LOC: ECHO 08:26
PROVIDERS: ATTEND Internal Medicine Cardiovascular Disease
DX: I08.0 Rheumatic disorders of both mitral and aortic valves (principal); I25.10 Atherosclerotic heart disease of native coronary artery without angina pectoris
CPT/HCPCS: 93306

== ENCOUNTER → 2020-08-02 | Outpatient (CLI) | payer OTHER, MEDICARE ==
[~2020-08-02] MED LIST changes: -CETI10TA24 PO; +CETI10TA74 PO
--- NOTE | 2020-08-02 11:40 | RAD ---
MR#: [id number] Date of Study: 08/02/2020 Ordering Physician: LINH CHING, Referring Physician: LINH CHING, Tech: Elijah Jasso MBA, RDMS, RVT, RDCS, RTR APPROVED REPORT Patient Location: OUT-PATIENT Laterality:Bilateral Indications Bruit Doppler Spectral Velocity Analysis Right Left pCCA 104/13 cm/spCCA 197/21 cm/s mCCA 133/13 cm/smCCA 109/14 cm/s dCCA 100/15 cm/sdCCA 106/13 cm/s Bulb 84/13 cm/sBulb 51/ cm/s ECA 166/ cm/sECA 172/ cm/s pICA 58/13 cm/spICA 65/14 cm/s Karla 72/18 cm/smICA 68/18 cm/s dICA 73/18 cm/sdICA 83/23 cm/s Vert. 42/ cm/sVert. 51/ cm/s Subcl. 61/ cm/sSubcl. 143/ cm/s ICA/CCA 0.55ICA/CCA 0.42 Findings Grayscale images demonstrate mild to moderate diffuse atherosclerosis. Spectral waveforms and color Doppler of the bilateral internal carotid arteries demonstrate 0 to less than 50% stenosis based on velocity criteria. Bilateral external carotid arteries demonstrate moderate 50 to 69% stenosis based on velocity criteri a. Bilateral ICA to CCA ratios are within normal limits. Bilateral vertebral velocities are antegrade and within normal limits. Critical Notification Critical Value: No <Conclusion> 1. No significant carotid occlusive disease bilaterally Signed by : Juan Luis Cadet, Electronically Approved : 08/02/2020 11:40:30
== END ==
LOC: US 09:31
PROVIDERS: ATTEND Internal Medicine Cardiovascular Disease
DX: I65.23 Occlusion and stenosis of bilateral carotid arteries (principal); I25.10 Atherosclerotic heart disease of native coronary artery without angina pectoris
CPT/HCPCS: 93880

== ENCOUNTER → 2020-08-05 | Outpatient (CLI) | payer OTHER, MEDICARE | LOC: LAB 10:17 | PROVIDERS: ATTEND Internal Medicine Cardiovascular Disease | DX: E78.5 Hyperlipidemia, unspecified (principal) | CPT/HCPCS: 36415; 80061 ==

== ENCOUNTER → 2020-10-12 | Outpatient (CLI) | payer OTHER, MEDICARE ==
[2020-10-12 11:06] LABS: CALCIUM 9.7 mg/dL (8.5-10.1); GFR 73.2; POTASSIUM 4.2 mmol/L (3.5-5.1)
== END ==
LOC: LAB 10:37
PROVIDERS: ATTEND Family Medicine
DX: I10 Essential (primary) hypertension (principal); Z80.42 Family history of malignant neoplasm of prostate
CPT/HCPCS: 36415; 80048; 84153; G0103

== ENCOUNTER → 2021-02-03 | Outpatient (CLI) | payer OTHER ==
--- NOTE | 2021-02-03 17:03 | CARD ---
MR#: [id number] Date of Study: 02/03/2021 Ordering Physician: LINH CAMPUZANO, Referring Physician: Melany CAST: Arleen Wahl [facility] APPROVED REPORT EXAM: Two-dimensional and M-mode echocardiogram with Doppler and color Doppler. Other Information Quality : AverageHR: 70bpm Rhythm : NSR INDICATION Cardiac Disease: CAD 2D DIMENSIONS RVDd3.5 (2.9-3.5cm)Left Atrium(2D)4.5 (1.6-4.0cm) IVSd1.0 (0.7-1.1cm)Aortic Root(2D)3.7 (2.0-3.7cm) LVDd4.7 (3.9-5.9cm)LVOT Diameter2.5 (1.8-2.4cm) PWd1.3 (0.7-1.1cm)LVDs3.2 (2.5-4.0cm) FS (%) 32.7 %SV63.3 ml LVEF(%)61.0 (>50%) Aortic Valve AoV Peak Avinash.108.4cm/Raiza Peak GR.4.8mmHg LVOT Peak Avinash.101.9cm/sAVA (VMAX)4.65cm2 AI P 1/2 Koud822cm Mitral Valve MV E Imyatljf66.2cm/sMV A Xhtlurjo72.5cm/s MV ZSL49dyA/A Ratio1.1 Pulmonary Valve PV Peak Xlvxcmjy29.9cm/s Tricuspid Valve TR P. Lnggldah587yj/sTR Peak Gr.27mmHg Pulmonary Vein S1 Gvvitdrr11.6cm/sD2 Npxuymzb83.2cm/s PVa gpuxxiyb05ptbb LEFT VENTRICLE The left ventricle is normal size. There is normal left ventricular wall thickness. The left ventricu lar systolic function is normal. The ejection fraction is estimated at EF 55-60% There is normal LV s egmental wall motion. No left ventricle thrombus noted on this study. There is no ventricular septal defect visualized. There is no left ventricular aneurysm. There is no mass noted in the left ventricl e. RIGHT VENTRICLE The right ventricle is normal size. There is normal right ventricular wall thickness. Systolic functi on is mildly reduced. ATRIA The left atrium is mildly dilated. The right atrium is mildly dilated. The interatrial septum is inta ct with no evidence for an atrial septal defect or patent foramen ovale as noted on 2-D or Doppler im aging. AORTIC VALVE The aortic valve is normal in structure and function. Doppler and Color Flow revealed mild aortic reg urgitation. There is no aortic valvular stenosis. There is no aortic valvular vegetation. MITRAL VALVE The mitral valve is normal in structure and function. There is no evidence of mitral valve prolapse. There is no mitral valve stenosis. Doppler and Color-flow revealed trace mitral regurgitation. TRICUSPID VALVE The tricuspid valve is normal in structure and function. Doppler and Color Flow revealed mild tricusp id regurgitation. There is no tricuspid valve prolapse or vegetation. There is no tricuspid valve janes nosis. PULMONIC VALVE The pulmonary valve is normal in structure and function. There is no pulmonic valvular regurgitation. There is no pulmonic valvular stenosis. GREAT VESSELS The aortic root is mildly enlarged. The ascending aorta is normal in size. The pulmonary artery is no rmal. The IVC is normal in size and collapses >50% with inspiration. PERICARDIAL EFFUSION There is no pleural effusion. There is no evidence of significant pericardial effusion. Critical Notification Critical Value: No <Conclusion> The left ventricular systolic function is normal. The ejection fraction is estimated at EF 55-60% There is normal LV segmental wall motion. Mild aortic regurgitation. Trace mitral regurgitation. Mild tricuspid regurgitation. There is no evidence of significant pericardial effusion. Signed by : Linh Campuzano, Electronically Approved : 02/03/2021 17:03:10
== END ==
LOC: ECHO 09:28
PROVIDERS: ATTEND Internal Medicine Cardiovascular Disease
DX: I08.2 Rheumatic disorders of both aortic and tricuspid valves (principal); I25.10 Atherosclerotic heart disease of native coronary artery without angina pectoris
CPT/HCPCS: 93306

== ENCOUNTER 2021-04-06 09:58 | Day surgery (SDC) | payer OTHER ==
[~2021-04-06] VITALS: Ht 179.1 cm; Wt 118.0 kg
[~2021-04-06 09:58] MED LIST changes: +ASPI-630 PO; +ATOR20TA58 PO; +CIPROFLOXACIN 0.3% OPHTH SOLUTION 5ML BOTTLE. OD ONE; +IBUP-1027 PO; +IV RINGERS,LACTATED 1000ML 1,000 ML IV SCH; +L.AC1CAP6 PO; +LIDOCAINE 2% JELLY 6ML IN APPLICATOR. OD ONE; +LOSA100T14 PO; +METO50TA6 PO; +PROPARACAINE 0.5% OPHTH SOLUTION 15ML BOTTLE. OD ONE
[2021-04-06 10:25] VITALS: BP 137/66
[2021-04-06] MEDS ORDERED: BALANCED SALT IRRIG OPHTH SOLN 15 ML BOTTLE. ONE (10:32)
[2021-04-06] MEDS ORDERED: CHONDROIT-SOD-HYALURONATE KIT. ONE (10:32)
[2021-04-06] MEDS ORDERED: NEO/POLYMYX/DEXAMETH OPHTH OINTMENT 3.5GM TUBE. ONE (10:32)
[2021-04-06] MEDS ORDERED: LIDOCAINE 1%/PHENYLEPH 1.5% PF OPHTH 1 ML VIAL. ONE (10:32)
[2021-04-06] MEDS: CYCLOPENTOLATE 1% OPHTH SOLUTION 2ML BOTTLE. OD SCH ×3 (10:35→10:45)
[2021-04-06] MEDS: PHENYLEPHRINE 10% OPHTH SOLUTION 5ML BOTTLE. OD SCH ×3 (10:35→10:45)
[2021-04-06] MEDS ORDERED: GLYCOPYRROLATE 1 MG/5 ML VIAL. ONE (12:12)
[2021-04-06] MEDS ORDERED: ONDANSETRON PF 4 MG/2 ML VIAL. ONE (12:12)
[2021-04-06] MEDS ORDERED: PHENYLEPHRINE in 0.9% NACL PF 1 MG/10 ML SYRINGE. IV ONE (12:12)
[2021-04-06] MEDS ORDERED: PROPOFOL 10 MG/ML (20ML) VIAL. IV ONE (12:12)
[2021-04-06] MEDS ORDERED: MIDAZOLAM HCL/PF 2 MG/2 ML VIAL. ONE (12:13)
[2021-04-06] MEDS ORDERED: TRYPAN BLUE 0.06% INTRAOCULAR 0.5 ML SYRINGE. IO ONE (12:44)
[2021-04-06 13:15] VITALS: BP 155/84
--- NOTE | 2021-04-06 15:30 | OP ---
DATE OF SURGERY: 04/06/2021 PREOPERATIVE DIAGNOSIS: Significant nuclear and cortical cataract of the right eye. POSTOPERATIVE DIAGNOSIS: Significant nuclear and cortical cataract of the right eye. PROCEDURE: Phacoemulsification with posterior chamber lens implant with use of VisionBlue, right eye. ANESTHESIA: Topical with MAC. DESCRIPTION OF PROCEDURE: The patient was dilated and anesthetic drops were applied in the outpatient department and the [place] balloon cuff used for about 10 minutes. The patient was then brought to the operating room, where the right eye was prepped and draped in the usual sterile manner for an intraocular procedure. A lid speculum was placed between the eyelids and the operating microscope brought into position and the eye was first observed. There was only marginal pupillary dilation and there was significant nuclear and cortical changes. I decided to use VisionBlue to help facilitate the procedure. A paracentesis incision was made superotemporally and an injection of Phenylid was injected into the anterior chamber followed by injection of air and a Viscoat plug. VisionBlue was then infiltrated over the anterior lens capsule for staining. The air was then displaced with Viscoat and the primary 2.4 mm incision was made temporally. I was then able to perform a capsulorrhexis without difficulty. The lens nucleus was hydrodissected and phacoemulsified with the phaco handpiece. The remaining cortex was aspirated with the I/A handpiece. The bag was then insufflated with Provisc and the posterior chamber lens placed into the bag without difficulty. The Provisc was aspirated with the I/A handpiece and the eye was pressurized by hydrating the wounds. The wounds were checked for leaks and there were none. The speculum and drape were removed and Maxitrol ointment instilled in the conjunctival sac and the eye was shielded. The patient was taken to the recovery room in satisfactory condition. There were no complications and I will see the patient tomorrow in my office. CHRIS DR: Maggy TID: [id number]
== END 2021-04-06 13:25 | disposition home or self-care (01) ==
LOC: SURG 09:58
PROVIDERS: ATTEND Ophthalmology
DX: E11.36 Type 2 diabetes mellitus with diabetic cataract (principal); H25.11 Age-related nuclear cataract, right eye; H25.011 Cortical age-related cataract, right eye; I10 Essential (primary) hypertension; E78.00 Pure hypercholesterolemia, unspecified; F41.9 Anxiety disorder, unspecified; F32.9 Major depressive disorder, single episode, unspecified; N40.0 Benign prostatic hyperplasia without lower urinary tract symptoms; I25.10 Atherosclerotic heart disease of native coronary artery without angina pectoris; E66.9 Obesity, unspecified; Z79.899 Other long term (current) drug therapy; Z95.1 Presence of aortocoronary bypass graft; Z98.890 Other specified postprocedural states
CPT/HCPCS: 66984; 82962; J0171; J2250; J3490; J2370; J2405; J2704; V2632

== ENCOUNTER → 2021-10-17 | Outpatient (CLI) | payer OTHER ==
[~2021-10-17] MED LIST changes: -BISO1TAB4 PO; -BISO1TAB8 PO; +BISO1TAB83 PO; +BISO1TAB84 PO; -CIPROFLOXACIN 0.3% OPHTH SOLUTION 5ML BOTTLE. OD ONE; -IV RINGERS,LACTATED 1000ML 1,000 ML IV SCH; -LIDOCAINE 2% JELLY 6ML IN APPLICATOR. OD ONE; -PROPARACAINE 0.5% OPHTH SOLUTION 15ML BOTTLE. OD ONE
[2021-10-17 12:33] LABS: CALCIUM 8.7 mg/dL (8.5-10.1); CREATININE 1.1 mg/dL (0.7-1.3); GFR 65.4; POTASSIUM 4.2 mmol/L (3.5-5.1)
[2021-10-18 01:08] LABS: HEMOGLOBIN A1C 8.1 % (4.8-5.6)
== END ==
LOC: LAB 11:28
PROVIDERS: ATTEND Family Medicine
DX: E11.69 Type 2 diabetes mellitus with other specified complication (principal); Z80.42 Family history of malignant neoplasm of prostate
CPT/HCPCS: 36415; 80048; 83036; 84153; G0103